=== PATIENT | female | born 1955 | race Caucasian/White ===

== ENCOUNTER → 2016-06-24 | Outpatient (CLI) | payer BC ==
[~2016-06-24] MED LIST: ACET-1256 PO; ASPEC325 PO; ASPI-435 PO; ATOR10TA88 PO; CALC500C3 PO; CELE100C PO; CHOL1CAP57 PO; COENCAP9 PO; LPR25 PO; LPR50X PO; MONISTAT; OMEP40CA41 PO; OXYC-609 PO; Omeprazole PO; ULT/50 PO; ULT50 PO; VENL75TA4 PO; XNX25 PO; [UNRECOGNIZED DRUG - CODE] PO
--- NOTE | 2016-06-24 11:03 | DIAGNOSTIC IMAGING REPORT ---
CT SCAN OF THE PELVIS WITHOUT IV CONTRAST CLINICAL HISTORY: Unspecified hip pain. COMPARISON STUDY: Pelvic CT dated 11/04/2015. TECHNIQUE: CT scan of the bony pelvis is performed from the pelvic inlet to the proximal femora. Images reviewed in the axial, sagittal, and coronal planes. IV contrast was not administered for this examination. The examination is severely degraded by metallic streak artifact from bilateral hip arthroplasties. Note that interpretation is suboptimal without plain film correlate. CT DOSE: 692.07 mGy.cm FINDINGS: The skeletal structures are osteopenic. Assessment is severely degraded by streak artifact from bilateral hip arthroplasties. No acute fracture is clearly seen in the hips or bony pelvis. No lytic or blastic lesions are identified. 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 This has progressed from 11/04/2015 and there is fragmentation of the medial wall of the acetabulum with superior subluxation of the acetabular cup. This appears corticated/chronic and is likely subacute to chronic. There is associated expansion of the right iliopsoas musculature. There is fluid containing hyperdense debris, this could represent a seroma or possibly a liquefied hematoma. Hyperdense debris could reflect particle disease. Clinical correlation will be essential. The left hip arthroplasty is in near-anatomic alignment. The musculature of the hips and pelvis is otherwise normal in appearance. Lumbosacral spondylosis is partially imaged. There is a small fat-containing umbilical hernia. The left rectus musculature is markedly atrophic and there is laxity of the left ventral abdominal wall with protuberant bowel loops. The visualized bowel loops are normal in caliber. A normal appendix is seen. The bladder is grossly unremarkable but not well assessed due to streak artifact. The uterus is surgically absent. No pelvic sidewall or inguinal lymphadenopathy is seen. IMPRESSION: 1. Significantly degraded examination by streak artifact from bilateral hip arthroplasties. 2. Resorptive change is noted in the right acetabulum and there is protrusio acetabuli with fragmentation of the medial wall of the acetabulum. This is likely subacute to chronic and has progressed from 11/04/2015. 3. There is expansion of the right iliopsoas musculature which contains fluid and hyperdense/metallic debris. This could represent intramuscular hematoma and/or seroma. The debris suggests particle disease. Clinical correlation will be required. 4. No additional bony abnormality is identified. The left hip arthroplasty is normal in appearance. Dictated: 06/24/2016 10:40 AM Transcribed: 06/24/2016 11:03 AM [facility] Electronically signed by: Matt Blue M.D. 06/24/2016 11:39 AM Dictated Date/Time: 06/24/2016 10:40 AM
== END | disposition home or self-care (01) ==
LOC: C.CTS 09:28
PROVIDERS: ATTEND Orthopaedic Surgery
DX: M25.559 Pain in unspecified hip (principal); M24.7 Protrusio acetabuli; Z96.643 Presence of artificial hip joint, bilateral; R93.7 Abnormal findings on diagnostic imaging of other parts of musculoskeletal system

== ENCOUNTER 2016-07-23 10:21 | Emergency (ER) | payer BC ==
[~2016-07-23] VITALS: Ht 149.9 cm; Wt 62.0 kg
[2016-07-23] VITALS (10 sets, daily range): BP systolic 112–157; BP diastolic 69–98; PULSE 88–102; TEMP 36.7; O2SAT 95–100; Ht 149.9 cm; Wt 62.0 kg
[~2016-07-23 10:21] MED LIST changes: -ACET-1256 PO; -ASPEC325 PO; -ATOR10TA88 PO; -CELE100C PO; -CHOL1CAP57 PO; -LPR25 PO; -OMEP40CA41 PO; -OXYC-609 PO; -ULT/50 PO; -ULT50 PO; -VENL75TA4 PO; -XNX25 PO
--- NOTE | 2016-07-23 11:11 | EMERGENCY ROOM VISIT NOTE ---
History First contact with patient: 10:48 Chief Complaint: HIP PAIN Stated Complaint: RT HIP,NO CONTROL IN MOVEMENT History of Present Illness The patient is a 61 year old female who presents to the Emergency Room via private vehicle accompanied by male and female with complaints of "right hip, no control movement". The patient states that she fell June 03, and fractured her pelvis. She thought that it was only bruised, because she fell on her her left side but had right hip pain. She states that she was then evaluated by Dr. Diaz, who found that she had a broken pelvis, and therefore sent her to [facility] for the surgery. The surgery was performed on July 13. It was done by Dr. Martel. She has been home since July 15, it has been in pain but has been healing well. She states that Monday of this week she went to sit down and when she straightened her right leg she felt a snap in the right hip. She notes that this was the worst pain she has ever experienced. She called [facility] on Monday, and again this morning. She notes that at 3 AM this morning she stepped on her left foot followed by her right foot and her right leg seemed to be uncontrolled almost as if she had broken the hip again. She notes pain currently in the right hip is a 2-3/10. She feels that the right hip region is numb. She denies any lower extremity weakness, bowel or bladder incontinence or numbness and tingling in the genital region. She denies any chest pain, shortness of breath, fevers, chills. She spoke with Dr. Zamarripa, the orthopedic resident this morning from [facility] who recommended she go to the local ER for an x-ray of the hip. Review of Systems A complete 10-point Review of Systems was discussed with the patient, with pertinent positives and negatives listed in the History of Present Illness. All remaining Review of Systems questions can be considered negative unless otherwise specified. Past Medical/Surgical History Medical Problems: (1) Breast cancer (2) Cancer of central portion of left breast Family History Heart disease, cancer Social History Smoking Status: Never Smoker Social History: Patient lives at home alone. Current/Historical Medications Scheduled Acetaminophen (Tylenol), 1,000 MG PO TID Alprazolam (Alprazolam), 0.125 MG PO HS Anastrozole (Bulk) (Anastrozole), 1 MG PO DAILY Aspirin (Aspirin), 325 MG PO BID Atorvastatin (Lipitor), 10 MG PO HS Celecoxib (Celebrex), 100 MG PO QAM Cholecalciferol (Vitamin D3), 1,000 INTERUNIT PO BID Coenzyme [id number] Oil-Vitamin (Co-Q 10 [place]-3 Fish Oil), 100 MG PO DAILY Metoprolol Tartrate (Lopressor), 12.5 MG PO BID Omeprazole (Prilosec), 40 MG PO QAM Tramadol Hcl (Ultram), 50 MG PO Q8H Venlafaxine Hcl (Effexor), 225 MG PO DAILY Scheduled PRN Oxycodone HCl (Oxycodone HCl), 5-10 MG PO Q4 PRN for SEVERE PAIN Tramadol HCl (Tramadol HCl), 50 MG PO Q8 PRN for Pain Allergies Coded Allergies: Adhesives (Verified Adverse Reaction, Mild, HIVES, 07/23/16) Physical Exam Vital Signs Date Time Temp Pulse Resp B/P Pulse Ox O2 Delivery O2 Flow Rate FiO2 07/23/16 18:24 95 18 142/74 99 Room Air 07/23/16 16:52 92 18 157/78 100 07/23/16 16:46 92 18 151/98 99 Room Air 07/23/16 16:41 92 16 143/77 100 Room Air 07/23/16 16:36 88 20 134/72 100 Nasal Cannula 3.0 07/23/16 16:32 91 20 116/84 100 Nasal Cannula 4.0 07/23/16 16:30 92 15 100 Nasal Cannula 3.0 07/23/16 16:25 98 16 112/73 95 Room Air 07/23/16 16:21 96 16 151/69 96 Room Air 07/23/16 16:15 36.7 102 18 137/92 99 07/23/16 15:20 97 20 129/63 99 Room Air 07/23/16 13:50 89 18 123/92 98 Room Air 07/23/16 12:46 97 16 127/73 99 Room Air 07/23/16 12:08 85 18 127/66 96 Room Air 07/23/16 10:23 36.9 98 18 122/62 100 Room Air Physical Exam VITAL SIGNS - Vital signs and nursing notes were reviewed. Afebrile, normotensive, non-tachycardic and is saturating well on room air 100%. GENERAL -61-year-old female appearing her stated age who is in no acute distress. Communicates well with provider and answers questions appropriately. SKIN - Without rashes. There is a well-healed incision overlying the right lateral hip with evidence of staple placement. No evidence of infection at this time. No drainage. No wound dehiscence. HEAD - NC/AT. EYES - Sclera anicteric. Palpebral conjunctiva pink and moist with no injection noted. NECK - Neck with FROM. No meningismus. LUNGS - Chest wall symmetric without accessory muscle use, intercostals retractions, or central cyanosis. Normal vesicular breath sounds CTA B/L. No wheezes, rales, or rhonchi appreciated. CARDIAC - RRR with S1/S2. No murmur, rubs, or gallops appreciated. EXTREMITIES - No clubbing or peripheral cyanosis. No pretibial edema present. Patient is neurovascularly intact in the right lower extremity. There is tenderness to palpation overlying the right lateral hip. Upon inspection, the right lower extremity is externally rotated and shortened compared to the left. There is a palpable deformity of the right hip. I suspect hip fracture/ dislocation. Left lower extremity is unremarkable. There is minimal range of motion of the right lower extremity. Medical Decision & Procedures ER Provider Diagnostic Interpretation: RIGHT PELVIS/UNILATERAL HIP 2-3VIEWS CLINICAL HISTORY: Right hip pain status post trauma COMPARISON STUDY: CT scan dated 06/24/2016 FINDINGS: There are postsurgical changes of a total left hip arthroplasty. There are postsurgical changes of a total right hip arthroplasty with acetabular reconstruction. The right femoral head prosthesis is anteriorly, superiorly and laterally dislocated. There is ill-definition of the right medial acetabular wall, and there are radiopacities present, possibly representing antibiotic pledgets. IMPRESSION: Dislocated right hip arthroplasty Electronically signed by: Chintan Riggins M.D. 07/23/2016 12:07 PM Dictated Date/Time: 07/23/2016 12:04 PM CHEST ONE VIEW PORTABLE CLINICAL HISTORY: Recent surgery TRAUMA COMPARISON STUDY: 04/04/2014 FINDINGS: The heart is mildly enlarged. There is no failure. Surgical clips project over the left breast. There are equivocal subtle right upper lung zone airspace opacities. There is minor left basilar atelectasis.[ IMPRESSION: 1. Mild cardiomegaly 2. No evidence of failure 3. Equivocal subtle right apical airspace opacities Electronically signed by: Chintan Riggins M.D. 07/23/2016 12:08 PM Dictated Date/Time: 07/23/2016 12:07 PM AP PELVIS AND RIGHT HIP 2 VIEWS CLINICAL HISTORY: Right hip dislocation status post reduction COMPARISON STUDY: Earlier in the day FINDINGS: There are postsurgical changes of bilateral total hip arthroplasties. There is evidence for right acetabular reconstruction. Radiopacities projected over an ill-defined right medial acetabular wall may represent an embolic pledgets. There has been interval reduction of the previous described dislocation. IMPRESSION: Interval reduction of the previously identified right prosthetic hip dislocation Electronically signed by: Chintan Riggins M.D. 07/23/2016 4:48 PM Dictated Date/Time: 07/23/2016 4:47 PM Laboratory Results 07/23/16 11:17 Red Blood Count 3.40, Mean Corpuscular Volume 88.8, Mean Corpuscular Hemoglobin 27.9, Mean Corpuscular Hemoglobin Concent 31.5, Mean Platelet Volume 9.8, Neutrophils (%) (Auto) 67.5, Lymphocytes (%) (Auto) 16.4, Monocytes (%) (Auto) 9.1, Eosinophils (%) (Auto) 4.7, Basophils (%) (Auto) 0.0, Neutrophils # (Auto) 5.35, Lymphocytes # (Auto) 1.30, Monocytes # (Auto) 0.72, Eosinophils # (Auto) 0.37, Basophils # (Auto) 0.00 07/23/16 11:17 Test 07/23/16 11:17 White Blood Count 7.92 K/uL (4.8-10.8) Red Blood Count 3.40 M/uL (4.2-5.4) Hemoglobin 9.5 g/dL (12.0-16.0) Hematocrit 30.2 % (37-47) Mean Corpuscular Volume 88.8 fL (80-100) Mean Corpuscular Hemoglobin 27.9 pg (25-34) Mean Corpuscular Hemoglobin Concent 31.5 g/dl (32-36) Platelet Count 341 K/uL (130-400) Mean Platelet Volume 9.8 fL (7.4-10.4) Neutrophils (%) (Auto) 67.5 % Lymphocytes (%) (Auto) 16.4 % Monocytes (%) (Auto) 9.1 % Eosinophils (%) (Auto) 4.7 % Basophils (%) (Auto) 0.0 % Neutrophils # (Auto) 5.35 K/uL (1.4-6.5) Lymphocytes # (Auto) 1.30 K/uL (1.2-3.4) Monocytes # (Auto) 0.72 K/uL (0.11-0.59) Eosinophils # (Auto) 0.37 K/uL (0-0.5) Basophils # (Auto) 0.00 K/uL (0-0.2) RDW Standard Deviation 52.4 fL (36.4-46.3) RDW Coefficient of Variation 16.4 % (11.5-14.5) Immature Granulocyte % (Auto) 2.3 % Immature Granulocyte # (Auto) 0.18 K/uL (0.00-0.02) Prothrombin Time 9.8 SECONDS (9.0-12.0) Prothromb Time International Ratio 0.9 (0.9-1.1) Activated Partial Thromboplast Time 25.6 SECONDS (21.0-31.0) Partial Thromboplastin Ratio 1.0 Anion Gap 6.0 mmol/L (3-11) Est Creatinine Clear Calc Drug Dose 51.2 ml/min Estimated GFR () 78.9 Estimated GFR (Non- 68.0 BUN/Creatinine Ratio 24.5 (10-20) Calcium Level 8.9 mg/dl (8.5-10.1) Medical Decision Patient was seen and evaluated as above. After obtaining a thorough history and physical examination IV access was initiated and the above workup was performed. There is concern for potential hip fracture/dislocation. Patient was made nothing by mouth. Her last food was around 9:30-10 AM this morning. She consumed some sort of cereal with milk. The patient has a history concerning for potential fracture or dislocation. Radiograph results as above. This does reveal a significant dislocation. Chest x-ray reveals equivocal opacities but clinically she appears well, is saturating 100% on room air and I do not suspect pneumonia. The patient did not want anything for pain. She is comfortable. There is no leukocytosis, hemoglobin is 9.5. Patient indicated that she did receive 2 pints of blood at [facility]. I suspect that this is likely secondary to the surgery. I do not suspect extravasation in the right hip. Coagulation studies within normal limits. Sodium elevated at 146, chloride 109, BUN 22. I suspect she is dehydrated. I did discuss the case with my attending, and subsequently the on-call orthopedic surgeon. It was decided to attempt to reduce the patient here in the emergency department under conscious sedation once it was safe, approximate 6 hours after her last meal. Please refer to Dr. Littlejohn operative report. Please refer to the procedure note by Dr. Stoll. Patient tolerated this well with successful reduction. The patient was then provided with a short-term continuing prescription of the tramadol of which she was previously prescribed, and is to call her orthopedic surgeon first thing Monday to request sooner follow-up. She was fitted here with a brace with good fit. She was educated upon management. She was educated upon worrisome symptoms which to return. She had questions prior to discharge and was discharged home in good condition. EKG was unremarkable. In the evaluation and treatment of this patient, the following differential diagnoses were considered: Hip Fracture, Hip Dislocation, Greater Trochanteric Bursitis, Musculoskeletal Pain, Lumbar Radiculopathy. [facility] Drug Monitoring Program Search Results: patient reviewed within database, no issues identified Impression Primary Impression: Hip dislocation, right Additional Impression: Anemia Departure Information Dispostion Home / Self-Care Condition GOOD Prescriptions Tramadol Hcl (ULTRAM) 50 Mg Tab 50 MG PO Q8H, #9 TAB PRN PAIN Prov: Cayetano Wilson PA-C 07/23/16 Referrals RV. Beltran MD (PCP) Patient Instructions My [facility] Additional Instructions You were seen and evaluated in the emergency department for your right hip dislocation. You were found to be anemic here, with questionable opacities in the upper lobe on chest x-ray. As we discussed I do not think this is pneumonia at this time however it is recommended to have a repeat x-ray with her family doctor. You have had the right hip reduced back into place. Please call Dr. Martel's office first thing Monday to inform them that you were seen in the ER for hip dislocation. They may want to see her earlier. You've been prescribed tramadol, you may not drive or operative machinery with this. This is one tablet every 8 hours. Please use your walker and keep the brace in place until seen by Dr. Martel. You may use light toe-touch to the right leg but no full weightbearing. Please return to the emergency department with any new/concerning symptoms. Thank you for your time. Problem Qualifiers
[2016-07-23] MEDS ORDERED: ASPEC325 PO (11:28)
[2016-07-23] MEDS ORDERED: OXYC-609 PO (11:30)
[2016-07-23] MEDS ORDERED: ULT50 PO (11:30)
[2016-07-23 11:35] LABS: COMPLETE YES; EOS % 4.7 %; HEMATOCRIT 30.2 % (37-47); IG% 2.3 %; LYMPH % 16.4 %; MEAN CELL VOLUME 88.8 fL (80-100); MEAN CORPUSCULAR HEMOGLOBIN 27.9 pg (25-34); MEAN CORPUSCULAR HGB CONC 31.5 g/dl (32-36); MEAN PLATELET VOLUME 9.8 fL (7.4-10.4); MONO % 9.1 %; NEUT % 67.5 %; PLATELET COUNT 341 K/uL (130-400); WHITE BLOOD COUNT 7.92 K/uL (4.8-10.8)
[2016-07-23 11:50] LABS: INR 0.9 (0.9-1.1); PROTHROMBIN TIME (PATIENT) 9.8 SECONDS (9.0-12.0)
[2016-07-23 11:56] LABS: BUN/CREATININE RATIO 24.5 (10-20); CALCIUM 8.9 mg/dl (8.5-10.1); CREATININE 0.9 mg/dl (0.60-1.20); POTASSIUM 4.4 mmol/L (3.5-5.1)
--- NOTE | 2016-07-23 12:09 | DIAGNOSTIC IMAGING REPORT ---
RIGHT PELVIS/UNILATERAL HIP 2-3VIEWS CLINICAL HISTORY: Right hip pain status post trauma COMPARISON STUDY: CT scan dated 06/24/2016 FINDINGS: There are postsurgical changes of a total left hip arthroplasty. There are postsurgical changes of a total right hip arthroplasty with acetabular reconstruction. The right femoral head prosthesis is anteriorly, superiorly and laterally dislocated. There is ill-definition of the right medial acetabular wall, and there are radiopacities present, possibly representing antibiotic pledgets. IMPRESSION: Dislocated right hip arthroplasty Electronically signed by: Chintan Riggins M.D. 07/23/2016 12:07 PM Dictated Date/Time: 07/23/2016 12:04 PM
--- NOTE | 2016-07-23 12:10 | DIAGNOSTIC IMAGING REPORT ---
CHEST ONE VIEW PORTABLE CLINICAL HISTORY: Recent surgery TRAUMA COMPARISON STUDY: 04/04/2014 FINDINGS: The heart is mildly enlarged. There is no failure. Surgical clips project over the left breast. There are equivocal subtle right upper lung zone airspace opacities. There is minor left basilar atelectasis.[ IMPRESSION: 1. Mild cardiomegaly 2. No evidence of failure 3. Equivocal subtle right apical airspace opacities Electronically signed by: Chintan Riggins M.D. 07/23/2016 12:08 PM Dictated Date/Time: 07/23/2016 12:07 PM
--- NOTE | 2016-07-23 12:59 | EMERGENCY ROOM VISIT NOTE ---
ED Visit Note First contact with patient: 10:48 I have personally evaluated and examined this patient. I agree with assessment and plan of Luna Wilson PA-C. 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 Last hip replacement on the right with revision occurred approximately July 13. 4 days ago while in the shower she strained her leg felt a severe snap and since that time has been unable to fully weight-bear on the right leg. Then at 1 AM this morning she attempted to get up and put whatever weight she has been able to on her leg and it was more weak than previous. She last had a light meal at 9 AM consisting of rice crispies with milk and coffee with cream. There is significant quadriceps spasm in the hip currently. There is no surgery was performed at [facility]. At this point I feel as if the patient will likely require general anesthesia to relocate the hip. She will meet nothing by mouth guidelines at 3 PM after 6 hours. At this point we will be contacting the [facility] group to see if they would relocate the hip operatively at [facility] or if they would prefer to transfer the patient to [place] where she had her surgery performed at. In discussion with Luna Wilson PA-C the [facility] orthopedics service once to attempt a reduction in the emergency department. I have turned the patient's care over to Dr. Stoll for the conscious sedation.
[2016-07-23] MEDS ORDERED: PROPOFOL IV EMULSION 10 MG/ML 100 ML VIAL IV STA (14:36)
--- NOTE | 2016-07-23 15:45 | Medical Consult ---
Consultation Note Date of Service Jul 23, 2016. Consultation Note CHIEF COMPLAINT: Right revision TIMMY dislocation. HISTORY OF PRESENT ILLNESS: Ai is a pleasant 51-year-old female, patient of Dr. Rm who recently underwent revision of her acetabular component of her right total hip arthroplasty on July 13, 2016. This past Monday when she went to sit down and strained her right leg, she felt a snap in the pelvis. This morning, while attempting to put weight on the right leg, her right leg seemed to be uncontrolled as if she had broken her hip again. Her pain is a 2- 3 /10. I was consult did for further evaluation, and closed reduction. She unfortunately had drank milk this a.m and the ER was able to perform conscious sedation at approximately 4 PM. Past medical history: High cholesterol Acid reflux Anxiety Breast cancer Depression past surgical history: Procedure Procedure Date Comments Hip 2014 - right hip resurfacing Mastectomy 2009 Leg 2009 - left-artery clamped Placement power port cath 2009 Breast 2008 - left-papilloma Cholecystectomy 2007 Hip replacement 1994 - right-1994, left hip-09/2006 Tubal ligation 1978 section 1976 Tonsillectomy 1967 MEDICATIONS: 1. Anastrozole (anastrozole 1 mg oral tablet) 1 mg (1 tab) by mouth once daily. 2. ALPRAZolam (ALPRAZolam 0.25 mg oral tablet) 0.125 mg (0.5 tab) by mouth at bedtime. . 3. Atorvastatin (atorvastatin 10 mg oral tablet) 10 mg (1 tab) by mouth at bedtime. 4. Cholecalciferol (Vitamin D3 1000 intl units oral capsule) 1,000 Int_Unit (1 cap) by mouth 2 times daily. 5. Ubiquinone (CoQ10) 100 mg by mouth once daily. 6. Metoprolol (metoprolol tartrate 25 mg oral tablet) 12.5 mg (0.5 tab) by mouth 2 times daily. 7. Venlafaxine (venlafaxine 75 mg oral capsule, extended release) 225 mg (3 cap ) by mouth once daily. 8. Omeprazole (omeprazole 40 mg oral delayed release capsule) 40 mg (1 cap) by mouth once daily. 9. Alendronate (alendronate 70 mg oral tablet) 70 mg (1 tab) by mouth Every 7 days. takes on Sundays. 10. Aspirin (aspirin 325 mg oral tablet) 325 mg (1 tab) by mouth 2 times daily. 11. Acetaminophen (Tylenol 500 mg oral tablet) 1,000 mg (2 tab) by mouth 3 times daily. take for 1 week after discharge from [facility]. 12. TraMADol (Ultram 50 mg oral tablet) 50 mg (1 tab) by mouth every 8 hours, as needed for Pain - Mild. 13. OxyCODONE (oxyCODONE 5 mg oral tablet) 1 or 2 tabs by mouth every 4 hours, as needed for Pain - Severe. ALLERGIES: Adhesive bandages. FAMILY HISTORY: Noncontributory. SOCIAL HISTORY: Denies smoking. Admits to alcohol once per month. REVIEW OF SYSTEMS: A 10-point review of systems is noted in the hospital ER medical record. PHYSICAL EXAM: Patient is in no acute distress breathing easily at 16-20 breaths per minute. They have an appropriate mood and affect. They weigh 62 kg and are 150 cm tall. Vitals: Pulse 97, blood pressure 129/63, pulse ox 99% on room air. Focusing on her right lower extremity, she is able to wiggle her toes and ankle up and down. Her calf is soft and nontender. Her sensation light touch is intact distally. She has 2+ DP pulse. Her incision is clean, dry, intact. Her leg is shortened and externally rotated. RADIOGRAPHS: AP pelvis AP and lateral right hip, show total hip prosthesis that is dislocated. The acetabular component has an extensive cage and multiple screws that appears intact. No fracture. IMPRESSION: Anterior dislocation revision right TIMMY. PLAN: After a lengthy discussion with the patient today regarding my above clinical findings, as well as reviewing her radiographs, I recommended conscious sedation and attempted closed reduction with placement in a hip abduction brace, hip flexion blocked at 60 degrees. To continue with total hip precautions. Toe-touch weightbearing. She may utilize ice and cane continue with pain medicine as needed. She should follow-up with Dr. Martel as previously scheduled for staple removal and further care. The patient understood all my instructions and explanation; all their questions were satisfactorily addressed. PROCEDURE: After obtaining consent and performing a time-out identifying the right hip as the appropriate hip for closed reduction. The emergency room staff once adequate conscious sedation was performed, a closed reduction in the standard fashion was performed, on the second attempt the hip was felt to reduce. The hip no longer pistoned. Her leg lengths were normal. Postreduction x-rays were obtained showing the hip to be reduced. She tolerated the procedure well. She will follow all of the above instructions.
--- NOTE | 2016-07-23 16:50 | EMERGENCY ROOM VISIT NOTE ---
ED Visit Note First contact with patient: 13:18 Procedural Sedation Indication right hip dislocation Total time: 26 minutes. Written consent was obtained after the risks and benefits were explained to the patient, including, but not limited to aspiration, allergic reaction, breathing difficulties, cardiac complications, vomiting, pain, event recall, bleeding, and /or infection. Pre-sedation examination and paperwork completed. The patient was on 100% oxygen via NRB prior to the procedure. Continous end tidal CO2 monitoring, pulse oximetry, and cardiac monitoring were utilized. Suction, airway equipment, medications, respiratory equipment, and appropriate personnel were prepared prior to the initiation of the procedure. A time out was taken. Sedation was achieved utilizing a total of 100 mg of propofol. After I observed the patient had reached the appropriate level of sedation the main procedure was performed without complication. Sedation was discontinued and the monitoring continued. The patient recovered quickly from the effects of the medication without complication or adverse event. The hip was reduced using traction by Dr. Littlejohn. X-rays confirmed proper reduction. IMPRESSION: Right hip dislocation Prior pelvic fracture.
--- NOTE | 2016-07-23 16:50 | DIAGNOSTIC IMAGING REPORT ---
AP PELVIS AND RIGHT HIP 2 VIEWS CLINICAL HISTORY: Right hip dislocation status post reduction COMPARISON STUDY: Earlier in the day FINDINGS: There are postsurgical changes of bilateral total hip arthroplasties. There is evidence for right acetabular reconstruction. Radiopacities projected over an ill-defined right medial acetabular wall may represent an embolic pledgets. There has been interval reduction of the previous described dislocation. IMPRESSION: Interval reduction of the previously identified right prosthetic hip dislocation Electronically signed by: Chintan Riggins M.D. 07/23/2016 4:48 PM Dictated Date/Time: 07/23/2016 4:47 PM
--- NOTE | 2016-07-23 16:51 | [facility] Operative Report ---
Operative Report Operative Date Jul 23, 2016. Pre-Operative Diagnosis Revision Right TIMMY Dislocation Post-Operative Diagnosis Same Procedure(s) Performed Closed Reduction R TIMMY. Surgeon Dr. Littlejohn Gas Main Fitter Helper Surgeon(s) Clive Lara PA-C Estimated Blood Loss 0 Findings Dislocated Revised Right TIMMY. Fluids 300 Drains n/a Anesthesia Conscisous Sedation Complication(s) None Disposition Remained in ER B1 Indications The patient is a 61 year old female who dislocated her recent revision right TIMMY. After orthopedic consult discussing the patients treatment options of attempted closed reduction versus surgical intervention, she agreed for conscious sedation and attempted closed reduction. The patient understands the risks of surgery, which include but are not limited to: Failure to reduce the hip, loss of reduction, continued pain, fracture. The patient understands all of these instructions and explanations, all of their questions have been satisfactorily addressed. The patient has elected to proceed with surgery and the informed consent was signed. Description of Procedure The patient was taken to be one in the emergency room in preparation for conscious sedation. A multidisciplinary time-out was performed identifying the right lower limb as the correct limb for closed reduction. Once adequate conscious sedation was administered, and attempted closed reduction was performed with traction slight flexion with internal/external rotation. I was initially unable to reduce the hip. After administering additional propofol, a second attempt was performed and again with traction and counter pressure on her pelvis, slight flexion and abduction of the inner thigh , the hip reduced. There was no pistoning. The leg was able to be flexed and internally and externally rotated. Her leg lengths were equal. She tolerated the procedure well. After obtaining postreduction x-rays indicating the hip to be reduced and no fractures; she was placed in an abduction brace was blocked at 60 of flexion. She will remain toe-touch weightbearing. She will follow- up with Dr. Martel as previously scheduled this coming week. I attest to the content of the Intraoperative Record and any orders documented therein. Any exceptions are noted below.
[2016-07-23] MEDS ORDERED: ULT/50 PO (17:14)
[2017-02-24] MEDS ORDERED: VENL75TA4 PO (08:07)
[2017-02-24] MEDS ORDERED: CHOL1CAP57 PO (08:12)
[2017-02-24] MEDS ORDERED: XNX25 PO (09:34)
[2017-02-24] MEDS ORDERED: CELE100C PO (11:28)
[2017-02-24] MEDS ORDERED: OMEP40CA41 PO (11:28)
[2017-02-24] MEDS ORDERED: LPR25 PO (11:28)
[2017-02-24] MEDS ORDERED: ATOR10TA82 PO (11:28)
[2017-02-24] MEDS ORDERED: ACET-1256 PO (11:30)
== END 2016-07-23 18:25 | disposition home or self-care (01) ==
LOC: C.EDB 10:23
DX: T84.020A Dislocation of internal right hip prosthesis, initial encounter (principal); X58.XXXA Exposure to other specified factors, initial encounter; D64.9 Anemia, unspecified; E78.5 Hyperlipidemia, unspecified; K21.9 Gastro-esophageal reflux disease without esophagitis; F41.9 Anxiety disorder, unspecified; F32.9 Major depressive disorder, single episode, unspecified; Z96.643 Presence of artificial hip joint, bilateral; Z90.10 Acquired absence of unspecified breast and nipple; Z79.82 Long term (current) use of aspirin; Z85.3 Personal history of malignant neoplasm of breast

== ENCOUNTER 2016-07-24 13:18 | Emergency (ER) | payer BC ==
[~2016-07-24] VITALS: Ht 149.9 cm; Wt 63.0 kg
[~2016-07-24 13:18] MED LIST changes: +ASPEC325 PO; -ASPI-435 PO; -CALC500C3 PO; -LPR50X PO; -MONISTAT; +OXYC-609 PO; -Omeprazole PO; +ULT/50 PO; +ULT50 PO
[2016-07-24 13:31] VITALS: Ht 149.9 cm; Wt 63.0 kg
--- NOTE | 2016-07-24 14:20 | DIAGNOSTIC IMAGING REPORT ---
RIGHT PELVIS/UNILATERAL HIP 2-3VIEWS CLINICAL HISTORY: right hip pain/dislocation Right COMPARISON STUDY: CT scan dated 06/24/2016 FINDINGS: There are postsurgical changes of a total left hip arthroplasty. There are postsurgical changes of a total right hip arthroplasty with acetabular reconstruction. The right femoral head prosthesis is anteriorly, superiorly and laterally dislocated. There is ill-definition of the right medial acetabular wall with cement present. Skin ryan are again noted. No acute fractures. IMPRESSION: Dislocated right hip arthroplasty Electronically signed by: Scot Dewitt M.D. 07/24/2016 2:17 PM Dictated Date/Time: 07/24/2016 2:16 PM
--- NOTE | 2016-07-24 14:51 | EMERGENCY ROOM VISIT NOTE ---
History Report prepared by Qasim: Jeyson Morris Under the Supervision of: Dr. Rogelio Yo M.D. First contact with patient: 13:48 Chief Complaint: HIP PAIN Stated Complaint: RT HIP RE-DISLOCATED,REVISIT History of Present Illness The patient is a 61 year old female who presents to the Emergency Room with complaints of persistent right hip discomfort beginning earlier this morning. The patient had a right pelvic fracture on June 03, 2016, and had surgery with a hip replacement on July 13, 2016. Since then she has been at home and has been doing well. She notes she fell in the shower a few days ago, and thins then has had right hip pain and a shortened right leg. The patient was here yesterday, and under a sedation procedure, had her dislocated right hip reduced. Orthopedics notes this was a difficult reduction, and afterwards was kept in a pelvic brace, then discharged home. The patient notes that this morning she woke up with a shortened externally rotated right leg and hip pain with movement. She is unable to bear weight on her right hip. She denies taking and medications for her pain, and last ate around 1000 today. The patient denies other injuries or falls, chest pain, shortness of breath, urinary or bowel symptoms, or pain in her legs. She indicates that nothing relieves her pain, and that walking worsens her pain. Source of History: patient Onset: this morning Position: other (right hip) Quality: other (hip discomfort) Timing: other (persistent) Modifying Factors (Worsening): movement Associated Symptoms: No SOB, No chest pain, No urinary symptoms Note: Patient also denies bowel symptoms. Review of Systems See HPI for pertinent positives & negatives. A total of 10 systems reviewed and were otherwise negative. Past Medical & Surgical Medical Problems: (1) Breast cancer (2) Cancer of central portion of left breast Family History No pertinent family history stated. Social History Smoking Status: Never Smoker Current/Historical Medications Scheduled Acetaminophen (Tylenol), 1,000 MG PO TID Alprazolam (Alprazolam), 0.125 MG PO HS Anastrozole (Bulk) (Anastrozole), 1 MG PO DAILY Aspirin (Aspirin), 325 MG PO BID Atorvastatin (Lipitor), 10 MG PO HS Celecoxib (Celebrex), 100 MG PO QAM Cholecalciferol (Vitamin D3), 1,000 INTERUNIT PO BID Coenzyme U61-Enou Oil-Vitamin (Co-Q 10 Bone Gap-3 Fish Oil), 100 MG PO DAILY Metoprolol Tartrate (Lopressor), 12.5 MG PO BID Omeprazole (Prilosec), 40 MG PO QAM Tramadol Hcl (Ultram), 50 MG PO Q8H Venlafaxine Hcl (Effexor), 225 MG PO DAILY Scheduled PRN Oxycodone HCl (Oxycodone HCl), 5-10 MG PO Q4 PRN for SEVERE PAIN Tramadol HCl (Tramadol HCl), 50 MG PO Q8 PRN for Pain Allergies Coded Allergies: Adhesives (Verified Adverse Reaction, Mild, HIVES, 07/24/16) Physical Exam Vital Signs Date Time Temp Pulse Resp B/P Pulse Ox O2 Delivery O2 Flow Rate FiO2 07/24/16 17:05 36.9 96 18 131/78 98 07/24/16 17:04 96 18 131/78 98 Room Air 07/24/16 15:06 96 18 131/78 98 Room Air 07/24/16 13:31 36.9 116 18 131/68 98 Room Air Physical Exam GENERAL: Patient is well appearing and in minimal distress. HEENT: No acute trauma, normocephalic atraumatic, mucous membranes moist, no nasal congestion, no scleral icterus. NECK: No stridor, no adenopathy, no meningismus, trachea is midline. LUNGS: No dyspnea. Clear to auscultation and equal bilaterally. No wheeze, no rhonchi. HEART: Regular rate and rhythm. No murmurs, rubs, gallops appreciated. ABDOMEN: Soft, nontender, bowel sounds positive, no masses appreciated, no peritonitis. BACK: No midline tenderness, no CVA tenderness EXTREMITIES: Externally rotated shortened right leg with significant pain on ROM of right hip. Pulses intact. Color intact. Sensation intact. Full sensation of entire leg. NEUROLOGIC: Alert and oriented, no acute motor or sensory deficits, no focal weakness, cranial nerves grossly intact. SKIN: No rash, no jaundice, no diaphoresis. Medical Decision & Procedures ER Provider Diagnostic Interpretation: Radiology results and stated below per my review and radiologist interpretation: RIGHT PELVIS/UNILATERAL HIP 2-3VIEWS FINDINGS: There are postsurgical changes of a total left hip arthroplasty. There are postsurgical changes of a total right hip arthroplasty with acetabular reconstruction. The right femoral head prosthesis is anteriorly, superiorly and laterally dislocated. There is ill-definition of the right medial acetabular wall with cement present. Skin ryan are again noted. No acute fractures. IMPRESSION: Dislocated right hip arthroplasty Electronically signed by: Scot Dewitt M.D. 07/24/2016 2:17 PM Dictated Date/Time: 07/24/2016 2:16 PM ED Course 1345: The patient was evaluated in room A2. A complete history and physical exam was performed. 1350: Discussed the patient's case with Dr. Nguyen requested I discuss the case with orthopedics at [facility]. 1425: The patient denies the need for pain medications at this time. She is aware of the plan to contact [facility]. 1445: I spoke with Dr. Cormier of [facility], and the [facility]. The patient will be accepted at the [facility]. The patient will be transferred to [facility]. Medical Decision Pleasant 61 yr old female with fall in June leading to right pelvic fracture and eventual right hip arthroplasty at [facility] on Jul 13. Doing well until a few days ago when she fell and since unable to use right leg due to pain. Yesterday in ED and had right hip reduction after it was found dislocated. Went home with pelvic splint but on awakening this morning noted to have pain with movement and shortening right leg. Laid in bed, ate breakfast and several hours arrives for further evaluation. Hip is clearly dislocation but without any n/v compromise and no pain while laying here. She is stable, no distress and feels well. Discussed with Ortho who feel she requires transfer to higher level care. Ortho at [facility] accepts, but requested transfer to ED there where she was also accepted. Initial plan to go almost immediately but there were several recurrent delays for EMS. Throughout this patient in no distress and feeling well. Stable at transfer out. Consults Time Called: 1350 Consulting Physician: Dr. Nguyen, Orthopedics Returned Call: [phone] Discussed the patient's case with Dr. Nguyen requested I discuss the case with orthopedics at [facility]. Additional Consults: Time Called: 1430 Consulted Physician: Dr. Cormier of [facility], and [facility] Returned Call: [phone] Additional Comments: I spoke with Dr. Cormier of [facility], and the [facility]. The patient will be accepted at the [facility]. Impression Primary Impression: Dislocation of hip prosthesis Scribe Attestation The scribe's documentation has been prepared under my direction and personally reviewed by me in its entirety. I confirm that the note above accurately reflects all work, treatment, procedures, and medical decision making performed by me. Departure Information Dispostion Transfer Acute Care Facility Referrals RV. Beltran MD (PCP) Patient Instructions My [facility] Problem Qualifiers Primary Impression: Dislocation of hip prosthesis Encounter type: initial encounter Qualified Codes: T84.029A - Dislocation of unspecified internal joint prosthesis, initial encounter; Z96.649 - Presence of unspecified artificial hip joint
[2016-07-24 17:05] VITALS: BP 131/78; PULSE 96; TEMP 36.9; O2SAT 98
[2017-02-24] MEDS ORDERED: VENL75TA4 PO (08:07)
[2017-02-24] MEDS ORDERED: CHOL1CAP57 PO (08:12)
[2017-02-24] MEDS ORDERED: XNX25 PO (09:34)
[2017-02-24] MEDS ORDERED: ATOR10TA82 PO (11:28)
[2017-02-24] MEDS ORDERED: LPR25 PO (11:28)
[2017-02-24] MEDS ORDERED: OMEP40CA41 PO (11:28)
[2017-02-24] MEDS ORDERED: CELE100C PO (11:28)
[2017-02-24] MEDS ORDERED: ACET-1256 PO (11:30)
== END 2016-07-24 17:12 | disposition short-term general hospital (02) ==
LOC: C.EDB 13:19 → C.EDA 17:12
DX: T84.021A Dislocation of internal left hip prosthesis, initial encounter (principal); X58.XXXA Exposure to other specified factors, initial encounter; Y83.1 Surgical operation with implant of artificial internal device as the cause of abnormal reaction of the patient, or of later complication, without mention of misadventure at the time of the procedure; Z96.641 Presence of right artificial hip joint; Z98.890 Other specified postprocedural states; Z79.82 Long term (current) use of aspirin; Z79.899 Other long term (current) drug therapy

== ENCOUNTER → 2016-10-05 | Outpatient (CLI) | payer BC ==
[~2016-10-05] MED LIST changes: +ACET-1256 PO; +ATOR10TA88 PO; +CELE100C PO; +CHOL1CAP57 PO; +LPR25 PO; +OMEP40CA41 PO; +VENL75TA4 PO; +XNX25 PO
--- NOTE | 2016-10-05 15:52 | MAMMOGRAPHY REPORT ---
UNILATERAL RIGHT DIGITAL SCREENING MAMMOGRAM TOMOSYNTHESIS WITH CAD: 10/05/2016 CLINICAL HISTORY: Asymptomatic. Personal history of breast cancer. TECHNIQUE: Right breast tomosynthesis in addition to standard 2D mammography was performed. Current damion pearson was also evaluated with a Computer Aided Detection (CAD) system. COMPARISON: Comparison is made to exams dated: 02/04/2015 mammogram and 06/12/2015 breast MRI - [facility]. BREAST COMPOSITION: There are scattered areas of fibroglandular density in the right breast. FINDINGS: There are stable circumscribed low-density subcentimeter masses in the right breast. Sergey gn-appearing microcalcifications. No new suspicious mass, architectural distortion or cluster of collin picious microcalcifications is seen. IMPRESSION: ACR BI-RADS CATEGORY 1: NEGATIVE There is no mammographic evidence of malignancy. A 1 year screening mammogram is recommended. The pa tient will receive written notification of the results. Approximately 10% of breast cancers are not detected with mammography. A negative mammographic report should not delay biopsy if a clinically suggestive mass is present. Brandi Angulo M.D. ay/:10/05/2016 15:33:52 Director Of Global Talent: Aurea Bui RT(R)(M), [facility] letter sent: Normal 1/2 BI-RADS Code: ACR BI-RADS Category 1: Negative
== END | disposition home or self-care (01) ==
LOC: C.MAMM 14:10
PROVIDERS: ATTEND Internal Medicine
DX: Z12.31 Encounter for screening mammogram for malignant neoplasm of breast (principal)

== ENCOUNTER → 2016-10-13 | Outpatient (CLI) | payer BC ==
[2016-10-13 15:04] LABS: ALT/SGPT 17 U/L (12-78); AST/SGOT 16 U/L (15-37); BLOOD UREA NITROGEN 15 mg/dl (7-18); CALCIUM 8.6 mg/dl (8.5-10.1); CARBON DIOXIDE 25 mmol/L (21-32); CHLORIDE 111 mmol/L (98-107); CREATININE 0.84 mg/dl (0.60-1.20); GLUCOSE 108 mg/dl (70-99); POTASSIUM 4.2 mmol/L (3.5-5.1); SODIUM 142 mmol/L (136-145)
[2016-10-13 15:07] LABS: ALB/GLOB RATIO 0.6 (0.9-2); ALKALINE PHOSPHATASE 166 U/L (45-117); CHOLESTEROL 143 mg/dl (0-200); CHOLESTEROL/HDL RATIO 2.9; HDL CHOLESTEROL 49 mg/dl; LDL CHOLESTEROL CALCULATED 72 mg/dl; TRIGLYCERIDES 110 mg/dl (0-150); VERY LOW DENSITY LIPOPROT CALC 22 mg/dl
[2016-10-13 15:10] LABS: ESTIMATED AVERAGE GLUCOSE 128 mg/dl; HA1C FLAG Normal (Normal)
== END | disposition home or self-care (01) ==
LOC: C.LABBC 09:31
PROVIDERS: ATTEND Internal Medicine
DX: E78.5 Hyperlipidemia, unspecified (principal); E55.9 Vitamin D deficiency, unspecified; R73.9 Hyperglycemia, unspecified

== ENCOUNTER → 2016-12-27 | Outpatient (CLI) | payer BC | END | disposition home or self-care (01) | LOC: C.MAMM 08:16 | PROVIDERS: ATTEND Internal Medicine | DX: M85.80 Other specified disorders of bone density and structure, unspecified site (principal); Z85.3 Personal history of malignant neoplasm of breast; Z87.81 Personal history of (healed) traumatic fracture; M81.0 Age-related osteoporosis without current pathological fracture ==

== ENCOUNTER 2017-02-24 17:54 | Emergency (ER) | payer BC ==
[~2017-02-24] VITALS: Ht 149.9 cm; Wt 61.0 kg
[~2017-02-24 17:54] MED LIST changes: +ATOR10TA82 PO; -ATOR10TA88 PO; -ULT/50 PO
[2017-02-24 18:01] VITALS: TEMP 36.7; Ht 149.9 cm; Wt 61.0 kg
--- NOTE | 2017-02-24 18:41 | EMERGENCY ROOM VISIT NOTE ---
History Report prepared by Qasim: Shamir Davidson Under the Supervision of: Dr. Jeyson Chavez M.D. First contact with patient: 18:30 Chief Complaint: NEURO SYMPTOMS Stated Complaint: LEFT SIDE NUMBNESS Nursing Triage Summary: patient denies any symptoms currently. symptoms happened on monday and last 5 mins. weakness to left side History of Present Illness The patient is a 61 year old female who presents to the Emergency Room with complaints of an episode of left-sided weakness that occurred 3 mornings ago. She says that she woke up that morning, and was carrying her dentures in her left hand, and suddenly she was unable to move her left arm and it felt "so heavy". She notes that the left arm and hand felt very weak. The patient adds that she then tried to walk to her bedroom, and her left leg was weak as well and was not moving as she wanted it to. She states that the episode lasted less than 5 minutes, and she has been fine without symptoms since then. The patient notes that she did not see a facial droop, and did not feel any numbness. She states that she has never had this before, and currently feels fine. She talked to an on-call doctor today, and was recommended to come here for evaluation. The patient denies any trauma or hits to her head. She also denies any trouble speaking, trouble swallowing, headaches, neck pain, loss of consciousness, fevers, recent illnesses, chest pain, shortness of breath, melena, or hematochezia. She is not on any blood thinners. The patient notes a history of a rapid heartbeat, but nothing has changed with that. She notes no personal history of strokes, but her father had one. Source of History: patient Onset: 3 mornings ago Position: other (left side) Symptom Intensity: lasted less than 5 mins Quality: other (weakness) Timing: other (episode) Associated Symptoms: No LOC, No headache, No neck pain, No chest pain, No SOB, No melena, No hematochezia, No numbness Note: Associated symptoms: Denies facial droop, trouble swallowing or speaking, recent illnesses. Review of Systems See HPI for pertinent positives & negatives. A total of 10 systems reviewed and were otherwise negative. Past Medical & Surgical Medical Problems: (1) Breast cancer (2) Cancer of central portion of left breast Old medical records were reviewed. Nurse's notes were reviewed and I agree with. Family History FH: heart disease FHx: cancer Hypertension Stroke Social History Smoking Status: Former Smoker Alcohol Use: occasionally Housing Status: lives alone Occupation Status: employed Current/Historical Medications Scheduled Anastrozole (Anastrozole), 1 MG PO DAILY Aspirin (Aspirin Ec), 81 MG PO DAILY Atorvastatin (Lipitor), 10 MG PO HS Celecoxib (Celebrex), 100 MG PO QAM Cholecalciferol (Vitamin D3), 1,000 INTERUNIT PO BID Coenzyme Q10 (Ubidecarenone) (Coq-10), 100 MG PO DAILY Metoprolol Tartrate (Lopressor), 12.5 MG PO BID Omeprazole (Prilosec), 40 MG PO QAM Venlafaxine Hcl (Effexor), 225 MG PO DAILY Scheduled PRN Acetaminophen (Tylenol), 1,000 MG PO TID PRN for Headache or Pain Alprazolam (Alprazolam), 0.125 MG PO HS PRN for Anxiety Allergies Coded Allergies: Adhesives (Verified Adverse Reaction, Mild, HIVES, 07/24/16) Physical Exam Vital Signs Date Time Temp Pulse Resp B/P (MAP) Pulse Ox O2 Delivery O2 Flow Rate FiO2 02/24/17 20:15 94 18 120/73 100 Room Air 02/24/17 18:01 36.7 98 18 137/73 98 Room Air Physical Exam General: Non-ill appearing middle-aged female in no acute distress. HEENT: Normal cephalic atraumatic. Pupils are equal round and reactive to light. Extraocular movements are intact. Oropharynx is pink with moist mucous membranes. No swelling of the mouth lips or tongue. Neck: Supple with a midline trachea. No meningeal signs or stiffness, no JVD or bruits. No Stridor. Chest: Clear to auscultation bilaterally. No wheezes or rhonchi. No increased work of breathing. Heart: regular rate and rhythm. Abdomen: Soft nontender, nondistended without rebound guarding or rigidity. Extremities: No cyanosis clubbing or edema. No calf tenderness or assymetry Spine/Back. Non tender to palpation. No CVA tenderness Skin: Good turgor without rashes. Neurologic exam: Cranial nerves two through 12 are intact. Motor and sensation are intact and symmetrical throughout. No pronator drift. Finger to nose intact. Medical Decision & Procedures ER Provider Diagnostic Interpretation: CT results as stated below per my review and radiologist interpretation: HEAD CT NONCONTRAST CT DOSE: 537.48 mGy.cm HISTORY: episode of left sided weakness TECHNIQUE: Multiaxial CT images of the head were performed without the use of intravenous contrast. Automated exposure control was utilized for this study. A dose lowering technique was utilized adhering to the principles of ALARA. Comparison: None. Findings: The paranasal sinuses and mastoid air cells are clear. The calvarium and skull base are intact. There is no mass, hematoma, midline shift, acute infarct. White matter hypodensity is nonspecific but suggestive of microvascular ischemic change. The ventricles and sulci demonstrate mild age-related involutional changes. 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 Impression: No acute intracranial abnormality. Atrophy and microvascular ischemic changes. Electronically signed by: Scot Dewitt M.D. 02/24/2017 7:37 PM Dictated Date/Time: 02/24/2017 7:31 PM Laboratory Results 02/24/17 19:05 Red Blood Count 3.97, Mean Corpuscular Volume 76.1, Mean Corpuscular Hemoglobin 22.9, Mean Corpuscular Hemoglobin Concent 30.1, Mean Platelet Volume 10.0, Neutrophils (%) (Auto) 64.3, Lymphocytes (%) (Auto) 21.3, Monocytes (%) (Auto) 10.1, Eosinophils (%) (Auto) 3.6, Basophils (%) (Auto) 0.0, Neutrophils # (Auto ) 4.64, Lymphocytes # (Auto) 1.54, Monocytes # (Auto) 0.73, Eosinophils # (Auto ) 0.26, Basophils # (Auto) 0.00 02/24/17 19:05 Test 02/24/17 19:05 02/24/17 19:17 White Blood Count 7.22 K/uL (4.8-10.8) Red Blood Count 3.97 M/uL (4.2-5.4) Hemoglobin 9.1 g/dL (12.0-16.0) Hematocrit 30.2 % (37-47) Mean Corpuscular Volume 76.1 fL (80-100) Mean Corpuscular Hemoglobin 22.9 pg (25-34) Mean Corpuscular Hemoglobin Concent 30.1 g/dl (32-36) Platelet Count 338 K/uL (130-400) Mean Platelet Volume 10.0 fL (7.4-10.4) Neutrophils (%) (Auto) 64.3 % Lymphocytes (%) (Auto) 21.3 % Monocytes (%) (Auto) 10.1 % Eosinophils (%) (Auto) 3.6 % Basophils (%) (Auto) 0.0 % Neutrophils # (Auto) 4.64 K/uL (1.4-6.5) Lymphocytes # (Auto) 1.54 K/uL (1.2-3.4) Monocytes # (Auto) 0.73 K/uL (0.11-0.59) Eosinophils # (Auto) 0.26 K/uL (0-0.5) Basophils # (Auto) 0.00 K/uL (0-0.2) RDW Standard Deviation 48.1 fL (36.4-46.3) RDW Coefficient of Variation 16.9 % (11.5-14.5) Immature Granulocyte % (Auto) 0.7 % Immature Granulocyte # (Auto) 0.05 K/uL (0.00-0.02) Prothrombin Time 10.3 SECONDS (9.0-12.0) Prothromb Time International Ratio 1.0 (0.9-1.1) Activated Partial Thromboplast Time 28.5 SECONDS (21.0-31.0) Partial Thromboplastin Ratio 1.1 Anion Gap 8.0 mmol/L (3-11) Est Creatinine Clear Calc Drug Dose 49.2 ml/min Estimated GFR () 75.8 Estimated GFR (Non- 65.4 BUN/Creatinine Ratio 22.6 (10-20) Calcium Level 8.3 mg/dl (8.5-10.1) Total Bilirubin 0.2 mg/dl (0.2-1) Direct Bilirubin < 0.1 mg/dl (0-0.2) Aspartate Amino Transf (AST/SGOT) 12 U/L (15-37) Alanine Aminotransferase (ALT/SGPT) 14 U/L (12-78) Alkaline Phosphatase 145 U/L (45-117) Total Protein 7.7 gm/dl (6.4-8.2) Albumin 2.8 gm/dl (3.4-5.0) Lipase 88 U/L (73-393) Bedside Troponin I < 0.030 ng/ml (0-0.045) Laboratory studies as stated above per my review. Medications Administered Medications (Trade) Dose Ordered Sig/Louise Route Start Time Stop Time Status Last Admin Dose Admin Aspirin (Aspirin Chew) 324 mg NOW STAT PO 02/24/17 20:33 02/24/17 20:34 DC 02/24/17 20:46 324 MG ECG Indication: weakness Rate (beats per minute): 87 Rhythm: normal sinus Findings: no acute ischemic change, no ectopy, other (normal intervals) Change: no significant change (from July 23 2016) ED Course 183: Past medical records reviewed. The patient was evaluated in room C12B, and a complete history and physical examination were performed. 1909: I reevaluated the patient and she is resting comfortably. 2019: Upon reevaluation, the patient is resting comfortably. I discussed the results and treatment plan with her. She verbalized agreement of the treatment plan. The patient was discharged home. 2032: Ordered Aspirin Chew 324 mg PO. Medical Decision Differentials include TIA, intracranial process, cardiac disease, electrolyte or metabolic abnormality. This patient comes in as described above. She was placed in room C 12. She had an episode 2 days ago that lasted about 5 minutes where she felt weak in her left arm and to lesser degree the left leg. She had no other symptoms and she's had no recurrence of symptoms . She called her doctor today and they referred her to the ER. She's been asymptomatic since then she does have a history of tachycardia but is not on any blood thinners. She's had no chest pain or shortness of breath. At present, she has a normal neurologic exam and no headache and no recent fever or any other symptoms. No trauma. IV access established and blood work was obtained. CAT scan of her head was obtained as well. CAT scan was unremarkable. She has nothing to suggest cardiac event. Her blood work is unremarkable. Based on her symptoms she probably did have a TIA 2 days ago but has been asymptomatic since then she does take a baby aspirin. I recommend she take an adult strength 325 mg. She strongly desires to go home at think this is reasonable close follow-up .I told her that she will likely need further workup as an outpatient which would likely include carotid imaging and MRI of her head and possibly more cardiac workup. She agrees with the plan and again desires to go home. She's can follow up with her doctor Monday for recheck or return to the weekend if: worsening of symptoms, numbness or weakness, any new problems or concerns. She was happy with plan and discharged to home. Medication Reconcilliation Current Medication List: was personally reviewed by me Blood Pressure Screening Patient's blood pressure: Normal blood pressure Impression Primary Impression: TIA (transient ischemic attack) Scribe Attestation The scribe's documentation has been prepared under my direction and personally reviewed by me in its entirety. I confirm that the note above accurately reflects all work, treatment, procedures, and medical decision making performed by me. Departure Information Dispostion Home / Self-Care Referrals RV. Beltran MD (PCP) Patient Instructions My [facility] Additional Instructions Rest. Drink plenty of fluids. Increase your aspirin to 325 mg once a day. Take with food Return if: Recurrence of symptoms, numbness or weakness, difficulty speaking or swallowing, any new problems or concerns Follow-up with your doctor on Monday for recheck. You will need further outpatient workup which will likely include imaging of your carotids, MRI and other workup Problem Qualifiers Primary Impression: TIA (transient ischemic attack) Transient cerebral ischemia type: unspecified Qualified Codes: G45.9 - Transient cerebral ischemic attack, unspecified
[2017-02-24 19:22] LABS: COMPLETE YES; EOS % 3.6 %; HEMATOCRIT 30.2 % (37-47); IG% 0.7 %; LYMPH % 21.3 %; LYMPH ABS # 1.54 K/uL (1.2-3.4); MEAN CELL VOLUME 76.1 fL (80-100); MEAN CORPUSCULAR HEMOGLOBIN 22.9 pg (25-34); MEAN CORPUSCULAR HGB CONC 30.1 g/dl (32-36); MONO % 10.1 %; NEUT % 64.3 %; PLATELET COUNT 338 K/uL (130-400); RED BLOOD COUNT 3.97 M/uL (4.2-5.4); WHITE BLOOD COUNT 7.22 K/uL (4.8-10.8)
[2017-02-24 19:35] LABS: PARTIAL THROMBOPLASTIN RATIO 1.1; PROTHROMBIN TIME (PATIENT) 10.3 SECONDS (9.0-12.0)
--- NOTE | 2017-02-24 19:39 | DIAGNOSTIC IMAGING REPORT ---
HEAD CT NONCONTRAST CT DOSE: 537.48 mGy.cm HISTORY: episode of left sided weakness TECHNIQUE: Multiaxial CT images of the head were performed without the use of intravenous contrast. Automated exposure control was utilized for this study. A dose lowering technique was utilized adhering to the principles of ALARA. Comparison: None. Findings: The paranasal sinuses and mastoid air cells are clear. The calvarium and skull base are intact. There is no mass, hematoma, midline shift, acute infarct. White matter hypodensity is nonspecific but suggestive of microvascular ischemic change. The ventricles and sulci demonstrate mild age-related involutional changes. 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 Impression: No acute intracranial abnormality. Atrophy and microvascular ischemic changes. Electronically signed by: Scot Dewitt M.D. 02/24/2017 7:37 PM Dictated Date/Time: 02/24/2017 7:31 PM
[2017-02-24] MEDS ORDERED: COEN100C11 PO (19:46)
[2017-02-24] MEDS ORDERED: ASPI81TA28 PO (19:46)
[2017-02-24] MEDS ORDERED: ARM1 PO (19:46)
[2017-02-24 19:52] LABS: ALT/SGPT 14 U/L (12-78); AST/SGOT 12 U/L (15-37); BLOOD UREA NITROGEN 21 mg/dl (7-18); BUN/CREATININE RATIO 22.6 (10-20); CALCIUM 8.3 mg/dl (8.5-10.1); CARBON DIOXIDE 25 mmol/L (21-32); CHLORIDE 105 mmol/L (98-107); CREATININE 0.93 mg/dl (0.60-1.20); GLUCOSE 97 mg/dl (70-99); POTASSIUM 3.4 mmol/L (3.5-5.1); SODIUM 138 mmol/L (136-145)
[2017-02-24 19:55] LABS: ALKALINE PHOSPHATASE 145 U/L (45-117)
[2017-02-24 20:15] VITALS: BP 120/73; PULSE 94; O2SAT 100
[2017-02-24] MEDS ORDERED: ASPIRIN 324 MG CHEW PO STA (20:33)
== END 2017-02-24 20:50 | disposition home or self-care (01) ==
LOC: C.EDB 17:55 → C.EDC 20:50
DX: G45.9 Transient cerebral ischemic attack, unspecified (principal); Z85.3 Personal history of malignant neoplasm of breast; Z87.891 Personal history of nicotine dependence; Z79.82 Long term (current) use of aspirin; Z79.899 Other long term (current) drug therapy; Z91.09 Other allergy status, other than to drugs and biological substances; Z82.49 Family history of ischemic heart disease and other diseases of the circulatory system; Z80.9 Family history of malignant neoplasm, unspecified; Z82.3 Family history of stroke

== ENCOUNTER → 2017-03-06 | Outpatient (CLI) | payer BC ==
[~2017-03-06] MED LIST changes: +ARM1 PO; -ASPEC325 PO; +ASPI81TA28 PO; +COEN100C11 PO; -COENCAP9 PO; -OXYC-609 PO; -ULT50 PO; -[UNRECOGNIZED DRUG - CODE] PO
--- NOTE | 2017-03-06 12:18 | DIAGNOSTIC IMAGING REPORT ---
CAROTID DOPPLER NECK ART HISTORY: Mental status change G45.9 TIA (transient ischemic attack)[id number] COMPARISON: None. TECHNIQUE: Real-time, grayscale, and color Doppler sonography of the carotid arteries was performed. Imaging reviewed in the transverse and longitudinal planes. All measurements were calculated based on NASCET criteria. FINDINGS: Antegrade flow is seen in the bilateral vertebral arteries. The brachial pressures are hemodynamically similar. The peak systolic velocity within the right ICA is 80. The right systolic ratio is 1.2. The peak systolic velocity within the left ICA is 75. The left systolic ratio is 1.1. IMPRESSION: No hemodynamically significant stenosis seen within the carotid arteries. The above report was generated using voice recognition software. It may contain grammatical, syntax or spelling errors. Electronically signed by: Mian Soares M.D. 03/06/2017 12:17 PM Dictated Date/Time: 03/06/2017 12:16 PM
== END | disposition home or self-care (01) ==
LOC: C.ULTR 11:24
PROVIDERS: ATTEND Internal Medicine
DX: G45.9 Transient cerebral ischemic attack, unspecified (principal)

== ENCOUNTER → 2017-04-13 | Outpatient (CLI) | payer BC ==
[2017-04-13 12:22] LABS: EOS % 3.5 %; EOS ABS # 0.19 K/uL (0-0.5); HEMATOCRIT 33.4 % (37-47); HEMOGLOBIN 9.8 g/dL (12.0-16.0); IG# 0.03 K/uL (0.00-0.02); LYMPH ABS # 1.09 K/uL (1.2-3.4); MEAN CELL VOLUME 75.6 fL (80-100); MEAN CORPUSCULAR HEMOGLOBIN 22.2 pg (25-34); MEAN CORPUSCULAR HGB CONC 29.3 g/dl (32-36); MEAN PLATELET VOLUME 10.1 fL (7.4-10.4); MONO % 7.9 %; MONO ABS # 0.43 K/uL (0.11-0.59); NEUT % 68.1 %; NEUT ABS # 3.72 K/uL (1.4-6.5); PLATELET COUNT 418 K/uL (130-400); RED CELL DISTRIBUTION WIDTH CV 18.2 % (11.5-14.5); RED CELL DISTRIBUTION WIDTH SD 50.7 fL (36.4-46.3); WHITE BLOOD COUNT 5.46 K/uL (4.8-10.8)
[2017-04-13 12:39] LABS: ALBUMIN 2.9 gm/dl (3.4-5.0); ALT/SGPT 15 U/L (12-78); AST/SGOT 10 U/L (15-37); BLOOD UREA NITROGEN 15 mg/dl (7-18); CALCIUM 9.1 mg/dl (8.5-10.1); CARBON DIOXIDE 27 mmol/L (21-32); CREATININE 0.91 mg/dl (0.60-1.20); GLUCOSE 117 mg/dl (70-99); POTASSIUM 4.6 mmol/L (3.5-5.1); SODIUM 139 mmol/L (136-145)
[2017-04-13 12:45] LABS: ALKALINE PHOSPHATASE 134 U/L (45-117); CHOLESTEROL 142 mg/dl (0-200); LDL CHOLESTEROL CALCULATED 76 mg/dl; TOTAL PROTEIN 7.8 gm/dl (6.4-8.2); TRANSFERRIN 208 mg/dl (200-360)
== END | disposition home or self-care (01) ==
LOC: C.LAB1850 10:52
PROVIDERS: ATTEND Internal Medicine Hematology & Oncology
DX: C50.912 Malignant neoplasm of unspecified site of left female breast (principal); E78.5 Hyperlipidemia, unspecified; D64.9 Anemia, unspecified; E55.9 Vitamin D deficiency, unspecified

== ENCOUNTER → 2017-05-03 | Day surgery (SDC) | payer BC ==
[2017-04-18 09:46] VITALS: Ht 149.9 cm; Wt 57.7 kg
[~2017-05-03] VITALS: Ht 149.9 cm; Wt 57.7 kg
[~2017-05-03] MED LIST changes: +500ML BSS 0.3ML EPI 1:1000PF IRRIG ONE; +ACETAMINOPHEN 325 MG TAB PO PRN; +AMVISC PLUS 0.8ML SYRINGE INT OCU ONE; +ASPI325T45 PO; -ASPI81TA28 PO; +ATROPINE SULFATE 0.1 MG/ML 5ML SYR IV PRN; +BSS FLUSH ONE; +ENDOCOAT 0.85ML SYRINGE INT OCU ONE; +EpHEDrine SULFATE INJ 50 MG/ML AMP IV PRN; +EpINEphrine INJ 1MG/ML AMP 1 MG/ML AMP ONE; +FERR15DR PO; +LACTATED RINGER'S 1000ML 500 ML IV SCH; +LIDOCAINE 4% OP SOLN DROP CHARGE ONE; +LIDOCAINE 4% OP SOLN DROP CHARGE OPL SCH; +LIDOCAINE HCL 1% MPF 2 ML VIAL ONE; +MIDAZOLAM HCL 1 MG/ML 2ML VIAL ONE; +MIX: 4ML BSS 1ML EPI 1:1000 PF TOP ONE; +MOXIFLOXACIN OPH SOLN PER DROP CHARGE ONE; +POVIDONE-IODINE OP SOLN 30 ML BTL ONE; +PROPARACAINE 0.5% OP SOLN PER DROP CHARGE OPL SCH; +TOBRAMYCIN/DEXAMETHASONE OPH OINT PER APPLN CHARGE ONE
[2017-05-03] MEDS: PHENYLEPHRINE HCL 2.5% OP SOLN PER DROP CHARGE OPL SCH ×3 (08:42→08:52)
[2017-05-03] MEDS: TROPICAMIDE 1% OP SOLN PER DROP CHARGE OPL SCH ×3 (08:43→08:53)
--- NOTE | 2017-05-03 08:43 | History & Physical Bridge - SC ---
H&P Re-Evaluation Bridge Note: I have examined the patient, reviewed the History & Physical and in the interval since the performance of the History & Physical I have noted the following changes of clinical significance: No changes noted
[2017-05-03] MEDS: CYCLOPENTOLATE HCL 1% OP SOLN PER DROP CHARGE OPL SCH ×3 (08:44→08:54)
[2017-05-03] MEDS: MOXIFLOXACIN OPH SOLN PER DROP CHARGE OPL SCH ×3 (08:45→08:55)
--- NOTE | 2017-05-03 09:47 | [facility] Post Operative Brief Note ---
Immediate Operative Summary Operative Date May 03, 2017. Pre-Operative Diagnosis Left Eye cataract Post-Operative Diagnosis left eye cataract Procedure(s) Performed Left Cataract Phacoemulsification With Intraocular Lens Implant Surgeon Dr. Wu Cloth Finishing Range Back Tender Surgeon(s) none Estimated Blood Loss 0 Findings Consistent with Post-Op Diagnosis Specimens none Anesthesia Type MAC Complication(s) none Disposition Accompanied Pt To Recovery: no Disposition:
--- NOTE | 2017-05-03 09:48 | [facility] Operative Report ---
Operative Report Date of Service May 03, 2017. Operative Report DATE OF OPERATION: 05/03/17 PREOPERATIVE DIAGNOSIS: Senile nuclear cataract, left eye POSTOPERATIVE DIAGNOSIS: Senile nuclear cataract, left eye PROCEDURE PERFORMED: Phacoemulsification with intraocular lens implantation, left eye SURGEON: Dr. Eamon Wu ANESTHESIA: Topical with 1% intracameral lidocaine and monitored anesthesia care COMPLICATIONS: None DESCRIPTION OF PROCEDURE: After positively identifying the patient both verbally and by wristband in the preoperative area, the left eye was marked as the operative eye. The patient was then brought back to the operating room by the anesthesia and nursing staff where they were given a drop of Lidocaine and betadine into the operative eye. They were then sterilely prepped and draped in the standard fashion typical for ophthalmic surgery. Steri-strips were placed along the upper eyelids to keep the lashes back, and a lid speculum was placed into the operative eye. At this point, a documented time out was performed with members of the ophthalmology, nursing, and anesthesia staffs all agreeing upon the correct patient, correct location for surgery, correct procedure, and correct type and power of intraocular lens to be implanted. The microscope was then swung into position. First, a paracentesis wound was made using a sideport blade. Then, in sequence, 1% preservative-free lidocaine followed by Endocoat viscoelastic was injected into the anterior chamber. Next , the main incision was made with a keratome blade in triplanar fashion. A sharp cystotome was introduced into the eye and used to create a tear in the anterior capsule, which was directed into a continuous curvilinear capsulorrhexis using Utrata forceps. Hydrodissection was then performed with BSS on a flat-tip cannula. Next, the phacoemulsification handpiece was introduced into the eye and used to remove the nucleus in a xozgyl-hez-enjplni fashion. This was done without complication and then the irrigation-aspiration handpiece was introduced into the eye and used to remove all remaining cortical and epinuclear material. Amvisc was then injected into the anterior chamber as well as into the capsular bag and using the lens injector system, an MX60 23.0 D lens, serial number [id number], and expiration date 01/2020 was injected into the capsular bag and rotated into the correct position. Next, the irrigation- aspiration handpiece was used to remove all remaining Amvisc. BSS was used to hydrate the main wound, and then BSS was injected into the paracentesis site to reach physiologic pressure and then the main wound was checked and found to be watertight. The patient was given drops of Vigamox and Tobradex ointment into the operative eye, and then the surrounding area was cleaned and dried. A clear plastic shield was placed over the eye and the patient was then sat up and taken from the operating room by the anesthesia staff having tolerated the procedure well and suffering no complications. DISPOSITION: The patient was returned to the recovery room in stable condition. I attest to the content of the Intraoperative Record and any orders documented therein. Any exceptions are noted below.
--- NOTE | 2017-05-03 09:49 | Discharge Instructions-SurgCtr ---
Discharge Instructions Date of Service May 03, 2017. Visit Reason for Visit: Cataract Left Eye Discharge Discharge Diagnosis / Problem: left cataract Discharge Goals Goal(s): Decrease discomfort, Improve function Activity Recommendations Activity Limitations: as noted below Anesthesia . Post Anesthesia Instructions: If you have had General Anesthesia or IV Sedation: * Do not drive today. * Resume driving when surgeon permits. * Do not make important decisions or sign legal documents today. * Call surgeon for: 1. Temperature elevations greater than 101 degrees F. 2. Uncontrollable pain. 3. Excessive bleeding. 4. Persistent nausea and vomiting. 5. Medication intolerance (nausea, vomiting or rash). * For nausea and vomiting use only clear liquids such as: tea, soda, bouillon until nausea subsides, then gradually increase diet as tolerated. * If you have any concerns or questions, call your surgeon's office. If physician is unavailable and it is an emergency, call 911 or go to the nearest emergency room. . Instructions / Follow-Up Instructions / Follow-Up ACTIVITY RECOMMENDATIONS: * Light activities. * You may walk outside, read, watch television. * You may notice redness on the white part of the eye and some blurry vision - this is normal. MEDICATIONS: Resume previous medications unless instructed otherwise by your surgeon. Start all eye drops at 12 pm today: * Eye drops (today): Prednisone - one drop in operative eye every 2 hours while awake Ofloxacin - one drop in operative eye every 2 hours while awake Ilevro - one drop in operative eye daily SPECIAL CARE INSTRUCTIONS: * Tape plastic shield over eye to sleep at night. Call your doctor at with any concerns or problems. FOLLOW UP VISIT: Follow-up with Dr Wu at [facility] as scheduled. Diet Recommendations Home Diet: no limitations Procedures Procedures Performed: Left Cataract Phacoemulsification With Intraocular Lens Implant Pending Studies Studies pending at discharge: no Medical Emergencies . Who to Call and When: Medical Emergencies: If at any time you feel your situation is an emergency, please call 911 immediately. . Non-Emergent Contact Non-Emergency issues call your: Surgeon . . "Provider Documentation" section prepared by Eamon Wu. .
[2017-05-03 09:50] VITALS: TEMP 36.7
[2017-05-03 10:12] VITALS: BP 116/73; PULSE 79; O2SAT 100
--- NOTE | 2017-05-03 10:12 | Anesthesia Progress Nt - [facility] ---
Anesthesia Post Op Note Date & Time May 03, 2017 at 10:12 Vital Signs Pain Intensity: 0 Vital Signs Past 12 Hours Date Time Temp Pulse Resp B/P (MAP) Pulse Ox O2 Delivery O2 Flow Rate FiO2 05/03/17 09:50 36.7 83 16 125/89 (101) 100 Room Air 05/03/17 08:34 36.7 85 22 106/67 (80) 99 Room Air Notes Mental Status: alert / awake / arousable, participated in evaluation Pt Amnestic to Procedure: Yes Nausea / Vomiting: adequately controlled Pain: adequately controlled Airway Patency, RR, SpO2: stable & adequate BP & HR: stable & adequate Hydration State: stable & adequate Anesthetic Complications: no major complications apparent
== END | disposition home or self-care (01) ==
LOC: X.SURG 08:16
PROVIDERS: ATTEND Ophthalmology
DX: H25.12 Age-related nuclear cataract, left eye (principal); F32.9 Major depressive disorder, single episode, unspecified; Z86.73 Personal history of transient ischemic attack (TIA), and cerebral infarction without residual deficits; Z85.3 Personal history of malignant neoplasm of breast; Z96.641 Presence of right artificial hip joint; Z90.12 Acquired absence of left breast and nipple; Z79.899 Other long term (current) drug therapy; Z79.82 Long term (current) use of aspirin

== ENCOUNTER → 2017-05-17 | Day surgery (SDC) | payer BC ==
[2017-05-15 08:31] VITALS: Ht 149.9 cm; Wt 57.7 kg
[~2017-05-17] VITALS: Ht 149.9 cm; Wt 57.7 kg
[~2017-05-17] MED LIST changes: +AcetaZOLAMIDE 250 MG TAB PO ONE; -LIDOCAINE 4% OP SOLN DROP CHARGE OPL SCH; +LIDOCAINE 4% OP SOLN DROP CHARGE OPR SCH; -PROPARACAINE 0.5% OP SOLN PER DROP CHARGE OPL SCH; +PROPARACAINE 0.5% OP SOLN PER DROP CHARGE OPR SCH
[2017-05-17] MEDS: PHENYLEPHRINE HCL 2.5% OP SOLN PER DROP CHARGE OPR SCH ×3 (06:33→06:43)
[2017-05-17] MEDS: TROPICAMIDE 1% OP SOLN PER DROP CHARGE OPR SCH ×3 (06:34→06:44)
[2017-05-17] MEDS: CYCLOPENTOLATE HCL 1% OP SOLN PER DROP CHARGE OPR SCH ×3 (06:35→06:45)
[2017-05-17] MEDS: MOXIFLOXACIN OPH SOLN PER DROP CHARGE OPR SCH ×3 (06:36→06:46)
--- NOTE | 2017-05-17 07:21 | [facility] Post Operative Brief Note ---
Immediate Operative Summary Operative Date May 17, 2017. Pre-Operative Diagnosis Right Eye Cataract Post-Operative Diagnosis same Procedure(s) Performed Right Cataract Phacoemulsification With Intraocular Lens implant Surgeon Dr. Clive Wu Front Desk Clerk Surgeon(s) 0 Estimated Blood Loss 0 Findings Consistent with Post-Op Diagnosis Specimens none Anesthesia Type MAC Complication(s) none Disposition Disposition:
--- NOTE | 2017-05-17 07:22 | [facility] Operative Report ---
Operative Report Date of Service May 17, 2017. Operative Report DATE OF OPERATION: 05/17/17 PREOPERATIVE DIAGNOSIS: Senile nuclear cataract, right eye POSTOPERATIVE DIAGNOSIS: Senile nuclear cataract, right eye PROCEDURE PERFORMED: Phacoemulsification with intraocular lens implantation, right eye SURGEON: Dr. Eamon Wu ANESTHESIA: Topical with 1% intracameral lidocaine and monitored anesthesia care COMPLICATIONS: None DESCRIPTION OF PROCEDURE: After positively identifying the patient both verbally and by wristband in the preoperative area, the right eye was marked as the operative eye. The patient was then brought back to the operating room by the anesthesia and nursing staff where they were given a drop of Lidocaine and betadine into the operative eye. They were then sterilely prepped and draped in the standard fashion typical for ophthalmic surgery. Steri-strips were placed along the upper eyelids to keep the lashes back, and a lid speculum was placed into the operative eye. At this point, a documented time out was performed with members of the ophthalmology, nursing, and anesthesia staffs all agreeing upon the correct patient, correct location for surgery, correct procedure, and correct type and power of intraocular lens to be implanted. The microscope was then swung into position. First, a paracentesis wound was made using a sideport blade. Then, in sequence, 1% preservative-free lidocaine followed by Endocoat viscoelastic was injected into the anterior chamber. Next , the main incision was made with a keratome blade in triplanar fashion. A sharp cystotome was introduced into the eye and used to create a tear in the anterior capsule, which was directed into a continuous curvilinear capsulorrhexis using Utrata forceps. Hydrodissection was then performed with BSS on a flat-tip cannula. Next, the phacoemulsification handpiece was introduced into the eye and used to remove the nucleus in a [id number] fashion. This was done without complication and then the irrigation-aspiration handpiece was introduced into the eye and used to remove all remaining cortical and epinuclear material. Amvisc was then injected into the anterior chamber as well as into the capsular bag and using the lens injector system, an MX60 23.0 D lens, serial number [id number], and expiration date 03/2019 was injected into the capsular bag and rotated into the correct position. Next, the irrigation- aspiration handpiece was used to remove all remaining Amvisc. BSS was used to hydrate the main wound, and then BSS was injected into the paracentesis site to reach physiologic pressure and then the main wound was checked and found to be watertight. The patient was given drops of Vigamox and Tobradex ointment into the operative eye, and then the surrounding area was cleaned and dried. A clear plastic shield was placed over the eye and the patient was then sat up and taken from the operating room by the anesthesia staff having tolerated the procedure well and suffering no complications. DISPOSITION: The patient was returned to the recovery room in stable condition. I attest to the content of the Intraoperative Record and any orders documented therein. Any exceptions are noted below.
--- NOTE | 2017-05-17 07:23 | Discharge Instructions-SurgCtr ---
Discharge Instructions Date of Service May 17, 2017. Visit Reason for Visit: Right Cataract Discharge Discharge Diagnosis / Problem: right cataract Discharge Goals Goal(s): Decrease discomfort, Improve function Activity Recommendations Activity Limitations: as noted below Anesthesia . Post Anesthesia Instructions: If you have had General Anesthesia or IV Sedation: * Do not drive today. * Resume driving when surgeon permits. * Do not make important decisions or sign legal documents today. * Call surgeon for: 1. Temperature elevations greater than 101 degrees F. 2. Uncontrollable pain. 3. Excessive bleeding. 4. Persistent nausea and vomiting. 5. Medication intolerance (nausea, vomiting or rash). * For nausea and vomiting use only clear liquids such as: tea, soda, bouillon until nausea subsides, then gradually increase diet as tolerated. * If you have any concerns or questions, call your surgeon's office. If physician is unavailable and it is an emergency, call 911 or go to the nearest emergency room. . Instructions / Follow-Up Instructions / Follow-Up ACTIVITY RECOMMENDATIONS: * Light activities. * You may walk outside, read, watch television. * You may notice redness on the white part of the eye and some blurry vision - this is normal. MEDICATIONS: Resume previous medications unless instructed otherwise by your surgeon. Start all eye drops at 9:30 am today: * Eye drops (today): Prednisone - one drop in operative eye every 2 hours while awake Ofloxacin - one drop in operative eye every 2 hours while awake Ilevro - one drop in operative eye daily SPECIAL CARE INSTRUCTIONS: * Tape plastic shield over eye to sleep at night. Call your doctor at with any concerns or problems. FOLLOW UP VISIT: Follow-up with Dr Wu at [facility] as scheduled. Diet Recommendations Home Diet: no limitations Procedures Procedures Performed: Right Cataract Phacoemulsification With Intraocular Lens implant Pending Studies Studies pending at discharge: no Medical Emergencies . Who to Call and When: Medical Emergencies: If at any time you feel your situation is an emergency, please call 911 immediately. . Non-Emergent Contact Non-Emergency issues call your: Surgeon . . "Provider Documentation" section prepared by Eamon Wu. .
[2017-05-17 07:33] VITALS: TEMP 36.8
[2017-05-17 07:41] VITALS: BP 116/70; PULSE 75; O2SAT 100
--- NOTE | 2017-05-17 07:52 | Anesthesia Progress Nt - [facility] ---
Anesthesia Post Op Note Date & Time May 17, 2017 at 07:52 Vital Signs Pain Intensity: 0 Vital Signs Past 12 Hours Date Time Temp Pulse Resp B/P (MAP) Pulse Ox O2 Delivery O2 Flow Rate FiO2 05/17/17 07:41 75 16 116/70 (85) 100 Room Air 05/17/17 07:33 36.8 76 16 112/60 (77) 100 Room Air 05/17/17 06:27 36.3 76 16 119/65 (83) 100 Room Air Notes Mental Status: alert / awake / arousable, participated in evaluation Pt Amnestic to Procedure: Yes Nausea / Vomiting: adequately controlled Pain: adequately controlled Airway Patency, RR, SpO2: stable & adequate BP & HR: stable & adequate Hydration State: stable & adequate Anesthetic Complications: no major complications apparent
== END | disposition home or self-care (01) ==
LOC: X.SURG 06:09
PROVIDERS: ATTEND Ophthalmology
DX: H25.11 Age-related nuclear cataract, right eye (principal); I10 Essential (primary) hypertension; Z80.3 Family history of malignant neoplasm of breast; Z90.12 Acquired absence of left breast and nipple; Z90.710 Acquired absence of both cervix and uterus; Z90.89 Acquired absence of other organs; Z98.51 Tubal ligation status; Z98.818 Other dental procedure status; Z98.890 Other specified postprocedural states; Z79.82 Long term (current) use of aspirin; Z79.899 Other long term (current) drug therapy; Z85.3 Personal history of malignant neoplasm of breast; Z83.3 Family history of diabetes mellitus

== ENCOUNTER 2020-12-25 10:34 | Inpatient (IN) ==
--- NOTE | 2020-12-25 12:44 | Emergency Department Note ---
Impression & Plan Acute confusion, Hypomagnesemia, Elevated troponin ED Provider Note INFORMANT: Patient ED PROVIDER(S): Kevin Hartman MD CHIEF COMPLAINT: Confusion PLAN: Disposition: Admitted Condition: Good Outpatient prescription management: none Referral: None MEDICAL DECISION MAKING: Patient presented with acute confusion. She was doing relatively well on examination. Her ECG did not reveal any acute findings. The patient head CT was negative. Her laboratory studies were very concerning for severely low magnesium and an elevated troponin. The patient was given aspirin and IV magnesium. I d iscussed further management in the hospital. [facility] The patient was evaluated in the ER for further management. Triage Nursing notes reviewed and agree them. Vital Signs: reviewed and remarkable for no significant abnormalities Differential diagnosis: CVA, TIA, Infection, hypoglycemia, electrolyte abnormalities, overdose, toxicologic, cardiac sources, intracerebral event, neurologic, trauma, as well as other pathologies. Diagnostics interpreted by me: EC Lead ECG performed and revealed Normal sinus rhythym at 75, normal Condon, QRS normal. No elevation or depression. No PACs or PVCs Cardiac Monitoring: Cardiac monitoring ordered by me: The patient was placed on continuous cardiac monitoring and observed. It revealed a normal sinus rhythm at 84 beats per minute without ectopy or evidence of dysrhythmia. Imaging studies: Head CT: A noncontrast CT scan of the head was performed and was negative for tumor, fracture, intracranial hemorrhage, or other acute pathology. Chest x-ray. Findings: A chest x-ray was performed and revealed no pneumothorax, effusion, infiltrate, pulmonary edema, free air under the diaphragm, or wide mediastinum. Impression: No acute disease. HPI: The patient is a 65 year old female who presents to the Emergency Room with complaints of confusion. This started today and is getting mixed up about outpatient lab orders, visiting the lab and having difficulty finding her car. Sent from PCPs office. The patient also notes the following associated symptoms, none. The patient has taken no medication for relieving factors. Current pain is rated as 0/10. Has a history of stroke and word finding difficulty. Feels at baseline. Lives alone. Pt denies LOC, headache, fevers, chills, diaphoresis, visual changes, neck pain, chest pain, breathing difficulties, nausea, vomiting, abdominal pain, back pain, melena, hematochezia, urinary symptoms, numbness, weakness, lymphadenopathy, rash, or other complaint s. ROS: See above HPI for pertinent positives & negatives. A total of 10 systems reviewed and were otherwise negative. PAST MEDICAL HISTORY:See Below , stroke PAST SURGICAL HISTORY:See Below, FAMILY HISTORY:See Below SOCIAL HISTORY:See Below, single HOME MEDICATIONS:See Below ALLERGIES:See Below VITALS:See Below PHYSICAL EXAMINATION: GENERAL: Awake, alert, well-appearing, in no distress HENT: Normocephalic, atraumatic. Oropharynx unremarkable. EYES: Normal conjunctiva. Sclera non-icteric. PERRL EOMI NECK: Inspection normal. Non-tender. Supple. No nuchal rigidity. FROM. No masses. RESPIRATORY: Clear to auscultation. No wheezes. No rales. Normal respiratory effort. CARDIAC: Normal rate. Normal rhythm. No murmurs. No rubs. Extremities warm and well perfused. Pulses equal. No JVD. GI: Soft, non-distended. No tenderness to palpation. No rebound or guarding. No masses. RECTAL: Deferred. MUSCULOSKELETAL: Atraumatic. Chest examination reveals no tenderness. The back is symmetrical on inspection without obvious abnormality. There is no CVA tenderness to palpation. No joint edema. LOWER EXTREMITIES: Calves are equal size bilaterally and non-tender. No edema. No discoloration. NEURO: Normal sensorium. No sensory or motor deficits noted. Difficulty with word finding, mild. no drift. SKIN: No rash or jaundice noted. Kevin Hartman MD Past Med/Surg History Medical History Arthralgia of multiple sites Breast cancer (~03/2009) Dislocation of hip prosthesis History of fracture of right hip Surgical History H/O breast surgery H/O section H/O hysterectomy for benign disease H/O left mastectomy H/O: hysterectomy History of hip surgery dislocation of right hip prosthesis 09/2018 [facility] History of revision of total hip arthroplasty History of tonsillectomy Hx of cholecystectomy Family History Mother Colon cancer Hypertension Osteoporosis Thyroid disorder Father , age 77 Coronary heart disease Stroke , Onset Age: 77 Daughter , age 30 Ovarian cancer Breast cancer , Onset Age: 30 Social History Smoking Status: Former smoker Hx Alcohol Use: Yes Alcohol Intake Frequency Comment: socially Hx Substance Use: No Preferred Language: [place] Visual Impairment: No Limitations Hearing Ability: Normal marital status: single Current Living Situation: Alone current occupational status: employed Feels Safe at Home: Yes Childhood Exposure to Second-Hand Smoke: No Physical Activity Frequency: 1-2 Times per Week Physical Activity Frequency Comment: Ireggular Seatbelt Use: always Sunscreen Use: Yes Allergies Allergies Allergy/AdvReac Type Severity Reaction Status Date / Time adhesive AdvReac Mild HIVES Verified 12/25/20 15:06 Home Meds Home Medications Medication Instructions Recorded Confirmed alendronate 70 mg tablet (Fosamax) 70 mg PO WK 01/08/19 12/25/20 acetaminophen 500 mg tablet 1,000 mg PO TID PRN 09/23/19 12/25/20 (Tylenol Extra Strength) metoprolol succinate 25 mg 25 mg PO QAM 12/25/20 12/25/20 tablet,extended release 24 hr (Toprol XL) Previous Rx's Medication Instructions Recorded omeprazole 40 mg capsule,delayed 40 mg PO QAM #30 cap 02/17/20 release venlafaxine 75 mg tablet,extended 225 mg PO HS #270 tab 07/20/20 release 24 hr Results & Data (ED) Vital Signs Vital Signs - 24 hr 12/25/20 11:17 12/25/20 11:45 12/25/20 11:49 Temperature 36.9 C Temperature Source Oral Pulse Rate 88 75 79 Pulse Rate [Apical] 79 Pulse Rate from SpO2 Sensor Pulse Rhythm Regular Pulse Rhythm [Apical] Regular Pulse Strength [Apical] Normal Respiratory Rate 18 19 16 Respiratory Effort / Characteristics Non-Labored Non-Labored Spontaneous Respiratory Depth Normal Normal Respiratory Pattern Regular Regular Blood Pressure 164/95 H Blood Pressure [Left Arm] 153/79 H Blood Pressure Mean 118 Blood Pressure Mean [Left Arm] 103 Blood Pressure Position [Left Arm] Semi-fowlers Pulse Oximetry 100 100 Oxygen Delivery Method Room Air Room Air Room Air Sepsis Recent Fever Within 48 Hours No Sepsis New/Unexplained Change in Mental Status No Sepsis Action Taken by Nursing No Action Required 12/25/20 12:00 12/25/20 12:30 12/25/20 13:00 Temperature Temperature Source Pulse Rate 79 76 86 Pulse Rate [Apical] Pulse Rate from SpO2 Sensor 79 75 Pulse Rhythm Pulse Rhythm [Apical] Pulse Strength [Apical] Respiratory Rate 14 13 18 Respiratory Effort / Characteristics Respiratory Depth Respiratory Pattern Blood Pressure 158/82 H 168/90 H 157/89 H Blood Pressure [Left Arm] Blood Pressure Mean 107 116 111 Blood Pressure Mean [Left Arm] Blood Pressure Position [Left Arm] Pulse Oximetry 100 99 Oxygen Delivery Method Room Air Room Air Room Air Sepsis Recent Fever Within 48 Hours Sepsis New/Unexplained Change in Mental Status Sepsis Action Taken by Nursing 12/25/20 13:30 Temperature Temperature Source Pulse Rate 84 Pulse Rate [Apical] Pulse Rate from SpO2 Sensor Pulse Rhythm Pulse Rhythm [Apical] Pulse Strength [Apical] Respiratory Rate 16 Respiratory Effort / Characteristics Respiratory Depth Respiratory Pattern Blood Pressure 162/87 H Blood Pressure [Left Arm] Blood Pressure Mean 112 Blood Pressure Mean [Left Arm] Blood Pressure Position [Left Arm] Pulse Oximetry Oxygen Delivery Method Room Air Sepsis Recent Fever Within 48 Hours Sepsis New/Unexplained Change in Mental Status Sepsis Action Taken by Nursing Laboratory Data Result diagrams: 12/25/20 13:45 12/25/20 13:45 Lab Results 12/25/20 12/25/20 12/25/20 Range/Units 13:45 13:45 15:29 WBC 6.01 (4.8-10.8) K/uL RBC 4.36 (4.2-5.4) M/uL Hgb 11.4 L (12.0-16.0) g/dL Hct 36.5 L (37-47) % MCV 83.7 (80-100) fL MCH 26.1 (25-34) pg MCHC 31.2 L (32-36) g/dL RDW Std Deviation 49.3 H (36.4-46.3) fL RDW Coeff of Blaire 16.0 H (11.5-14.5) % Plt Count 380 (130-400) K/uL MPV 10.6 H (7.4-10.4) fL Immature Gran % (Auto) 0.3 % Neut % (Auto) 65.6 % Lymph % (Auto) 23.6 % [place] % (Auto) 8.2 % Eos % (Auto) 2.0 % Baso % (Auto) 0.3 % Neut # (Auto) 3.94 (1.4-6.5) K/uL Lymph # (Auto) 1.42 (1.2-3.4) K/uL [place] # (Auto) 0.49 (0.11-0.59) K/uL Eos # (Auto) 0.12 (0-0.5) K/uL Baso # (Auto) 0.02 (0-0.2) K/uL Immature Gran # (Auto) 0.02 (0.00-0.02) K/uL Sodium 140 (136-145) mmol/L Potassium 3.8 (3.5-5.1) mmol/L Chloride 106 (98-107) mmol/L Carbon Dioxide 24 (21-32) mmol/L Anion Gap 9.0 (3-11) BUN 11 (7-18) mg/dl Creatinine 0.89 (0.6-1.2) mg/dl Est Cr Clr Drug Dosing 45.6 ml/min Est GFR ( Amer) 77.7 ml/min Est GFR (Non-Af Amer) 67.1 ml/min BUN/Creatinine Ratio 12.1 (10-20) Glucose 90 (70-99) mg/dl Calcium 6.8 L (8.5-10.1) mg/dl Ionized Calcium (1.12-1.32) mmol/L Phosphorus (2.5-4.9) mg/dl Magnesium 0.7 L* (1.8-2.4) mg/dl Total Bilirubin 0.4 (0.2-1) mg/dl AST 13 L (15-37) U/L ALT 9 L (12-78) U/L Alkaline Phosphatase 114 (45-117) U/L Troponin I 0.135 H* (0-0.045) ng/ml Total Protein 7.8 (6.4-8.2) gm/dl Albumin 2.7 L (3.4-5.0) gm/dl Globulin 5.1 H (2.5-4.0) gm/dl Albumin/Globulin Ratio 0.5 L (0.9-2) TSH 1.000 (0.300-4.500) uIu/ml COVID-19 Eval Order Covid19 at [facility] SARS-CoV-2 (PCR) (Negative) 12/25/20 12/25/20 12/25/20 Range/Units 15:29 15:36 15:36 WBC (4.8-10.8) K/uL RBC (4.2-5.4) M/uL Hgb (12.0-16.0) g/dL Hct (37-47) % MCV (80-100) fL MCH (25-34) pg MCHC (32-36) g/dL RDW Std Deviation (36.4-46.3) fL RDW Coeff of Blaire (11.5-14.5) % Plt Count (130-400) K/uL MPV (7.4-10.4) fL Immature Gran % (Auto) % Neut % (Auto) % Lymph % (Auto) % [place] % (Auto) % Eos % (Auto) % Baso % (Auto) % Neut # (Auto) (1.4-6.5) K/uL Lymph # (Auto) (1.2-3.4) K/uL [place] # (Auto) (0.11-0.59) K/uL Eos # (Auto) (0-0.5) K/uL Baso # (Auto) (0-0.2) K/uL Immature Gran # (Auto) (0.00-0.02) K/uL Sodium (136-145) mmol/L Potassium (3.5-5.1) mmol/L Chloride (98-107) mmol/L Carbon Dioxide (21-32) mmol/L Anion Gap (3-11) BUN (7-18) mg/dl Creatinine (0.6-1.2) mg/dl Est Cr Clr Drug Dosing ml/min Est GFR ( Amer) ml/min Est GFR (Non-Af Amer) ml/min BUN/Creatinine Ratio (10-20) Glucose (70-99) mg/dl Calcium (8.5-10.1) mg/dl Ionized Calcium 0.78 L (1.12-1.32) mmol/L Phosphorus 4.0 (2.5-4.9) mg/dl Magnesium (1.8-2.4) mg/dl Total Bilirubin (0.2-1) mg/dl AST (15-37) U/L ALT (12-78) U/L Alkaline Phosphatase (45-117) U/L Troponin I (0-0.045) ng/ml Total Protein (6.4-8.2) gm/dl Albumin (3.4-5.0) gm/dl Globulin (2.5-4.0) gm/dl Albumin/Globulin Ratio (0.9-2) TSH (0.300-4.500) uIu/ml COVID-19 Eval Order SARS-CoV-2 (PCR) NEGATIVE (Negative) Administered Medications Magnesium Sulfate 4 gm/ Sodium (Chloride) 508 mls @ 63.5 mls/hr IV NOW ONE Stop: 12/25/20 23:29 Last Infusion: 12/25/20 17:58 Dose: 0 mls/hr Documented by: [id number] Admin: 12/25/20 15:50 Dose: 63.5 mls/hr Documented by: [id number] Discontinued Medications Aspirin (Aspirin Chew 324 Mg) 324 mg PO NOW STA Stop: 12/25/20 15:04 Last Admin: 12/25/20 15:25 Dose: 324 mg Documented by: [id number] Magnesium Sulfate/Dextrose (Magnesium Sulfate / D5w) 1 gm in 100 mls @ 100 mls/hr IV Q1H TANVIR Stop: 12/25/20 17:02 Last Infusion: 12/25/20 17:58 Dose: 0 mls/hr Documented by: [id number] Admin: 12/25/20 16:43 Dose: 100 mls/hr Documented by: [id number] Infusion: 12/25/20 16:42 Dose: 0 mls/hr Documented by: [id number] Admin: 12/25/20 15:25 Dose: 100 mls/hr Documented by: [id number] Imaging Data Radiologist's Impression: Chest X-Ray 12/25/20 12:24 SINGLE VIEW CHEST CLINICAL HISTORY: Generalized weakness. FINDINGS: An AP, portable, upright chest radiograph is compared to study dated 07/23/2016. The cardiomediastinal silhouette is unremarkable. The lungs and pleural spaces are clear. No pneumothorax is seen. The skeletal structures are osteopenic. The bony thorax is grossly intact. Surgical clips project over the left lower chest on the left upper quadrant of the abdomen. IMPRESSION: No active disease in the chest. ACT 112: Negative or not required by law. Electronically signed by: Matt Blue M.D. 12/25/2020 1:[address] 12/25/20 12:24 CT head/brain wo con CLINICAL HISTORY: 65 years-old Female with AMS. Acutely altered mental status TECHNIQUE: Multiple axial CT images of the head were obtained without contrast. A dose lowering technique was utilized adhering to the principles of ALARA. CT DOSE: 690.05 mGycm COMPARISON: Head CT 02/24/2017 FINDINGS: No acute intracranial hemorrhage, midline shift, intracranial mass, hydrocephalus, territorial ischemia or abnormal extra-axial collection. Age- related involutional changes with ex vacuo ventriculomegaly. Progressively worsened white matter hypodensities suggestive of chronic microvascular ischemic disease. There is a hypodense 3.2 cm focus involving the right occipital lobe on image 12 series 2 with mild thinning of the adjacent posterior cortex on image 11 of series 2 which is new from prior. The calvarium is intact. The paranasal sinuses, mastoid air cells, and middle ear cavities are clear. IMPRESSION: 1. No acute intracranial hemorrhage, midline shift or acute territorial infarct. 2. 3.2 cm hypodense focus within the right occipital lobe is new from the 2017 comparison and is suggestive of encephalomalacia from chronic insult. Vasogenic edema related to an underlying lesion is considered less likely. Correlation with patient history and any prior imaging recommended. ACT 112: Negative or not required by law. The above report was generated using voice recognition software. It may contain grammatical, syntax or spelling errors. Electronically signed by: Kvng Coffey M.D. 12/25/2020 2:18 PM Brain MRI 12/25/20 15:40 MRI OF THE BRAIN WITHOUT IV CONTRAST CLINICAL HISTORY: Change in mental status. COMPARISON STUDY: CT of the brain performed the same day 12/25/2020. TECHNIQUE: MRI of the brain was performed utilizing various T1 and T2-weighted sequences in the axial, sagittal, and coronal planes. IV contrast was not administered for this examination. FINDINGS: Brain parenchyma: There is age-related involutional change noting moderate confluent subcortical and periventricular microangiopathic disease. There is a focus of right occipital encephalomalacia. There is no hemorrhage or mass effect. There is no restricted diffusion typical for acute ischemia. Allan-white matter differentiation is preserved. No extra-axial fluid collection is seen. The cerebellar tonsils are normal in configuration. Ventricles, sulci, and cisterns: Prominent secondary to involutional change. Pituitary and sella: Unremarkable. Intracranial vasculature: Normal flow voids are maintained at the skull base. Orbits: The bony orbits are grossly intact. Orbital contents are normal in appearance noting bilateral ocular lens implants. Sinuses and mastoids: Clear. Calvarium: Unremarkable. Cervical cord: Partially visualized cervical spinal cord is normal in morphology and signal intensity. IMPRESSION: 1. Senescent changes as above with no acute intracranial abnormality. 2. A focus of right occipital encephalomalacia is consistent with a remote insult. ACT 112: Negative or not required by law. Electronically signed by: Matt Blue M.D. 12/25/2020 6:44 PM Discharge Plan Visit Data Chief Complaint: Confusion Stated Complaint: CONFUSION ED Provider: Kevin Hartman Discharge Problem: Acute confusion, Hypomagnesemia, Elevated troponin Discharge Instructions Interventions: ED Discharge Assessment Last Done: 12/25/20 18:44
--- NOTE | 2020-12-25 13:13 | XRay Report ---
SINGLE VIEW CHEST CLINICAL HISTORY: Generalized weakness. FINDINGS: An AP, portable, upright chest radiograph is compared to study dated 07/23/2016. The cardiom ediastinal silhouette is unremarkable. The lungs and pleural spaces are clear. No pneumothorax is see n. The skeletal structures are osteopenic. The bony thorax is grossly intact. Surgical clips project over the left lower chest on the left upper quadrant of the abdomen. IMPRESSION: No active disease in the chest. ACT 112: Negative or not required by law. Electronically signed by: Matt Blue M.D. 12/25/2020 1:12 PM
[2020-12-25 13:54] LABS: Basophils # (auto) 0.02 K/uL (0-0.2); Basophils % (auto) 0.3 %; Eosinophils # (auto) 0.12 K/uL (0-0.5); Hematocrit (blood only) 36.5 % (37-47); Hemoglobin 11.4 g/dL (12.0-16.0); Immature Granulocytes # (auto) 0.02 K/uL (0.00-0.02); Immature Granulocytes % (auto) 0.3 %; Lymphocytes # (auto) 1.42 K/uL (1.2-3.4); Lymphocytes % (auto) 23.6 %; Mean Corpuscular Hemoglobin 26.1 pg (25-34); Mean Corpuscular Hgb Conc 31.2 g/dL (32-36); Mean Corpuscular Volume 83.7 fL (80-100); Mean Platelet Volume 10.6 fL (7.4-10.4); Monocytes # (auto) 0.49 K/uL (0.11-0.59); Monocytes % (auto) 8.2 %; Neutrophils # (auto) 3.94 K/uL (1.4-6.5); Neutrophils % (auto) 65.6 %; Platelet Count 380 K/uL (130-400); RDW Standard Deviation 49.3 fL (36.4-46.3); Red Blood Count 4.36 M/uL (4.2-5.4); White Blood Count 6.01 K/uL (4.8-10.8)
--- NOTE | 2020-12-25 14:19 | CT Scan Report ---
CT head/brain wo con CLINICAL HISTORY: 65 years-old Female with AMS. Acutely altered mental status TECHNIQUE: Multiple axial CT images of the head were obtained without contrast. A dose lowering tech nique was utilized adhering to the principles of ALARA. CT DOSE: 690.05 mGycm COMPARISON: Head CT 02/24/2017 FINDINGS: No acute intracranial hemorrhage, midline shift, intracranial mass, hydrocephalus, territorial ischem ia or abnormal extra-axial collection. Age-related involutional changes with ex vacuo ventriculomegal y. Progressively worsened white matter hypodensities suggestive of chronic microvascular ischemic dis ease. There is a hypodense 3.2 cm focus involving the right occipital lobe on image 12 series 2 with mild thinning of the adjacent posterior cortex on image 11 of series 2 which is new from prior. The calvarium is intact. The paranasal sinuses, mastoid air cells, and middle ear cavities are clear . IMPRESSION: 1. No acute intracranial hemorrhage, midline shift or acute territorial infarct. 2. 3.2 cm hypodense focus within the right occipital lobe is new from the 2017 comparison and is sugg estive of encephalomalacia from chronic insult. Vasogenic edema related to an underlying lesion is co nsidered less likely. Correlation with patient history and any prior imaging recommended. ACT 112: Negative or not required by law. The above report was generated using voice recognition software. It may contain grammatical, syntax o r spelling errors. Electronically signed by: Kvng Coffey M.D. 12/25/2020 2:18 PM
[2020-12-25 14:51] LABS: Albumin Globulin Ratio 0.5 (0.9-2); Albumin Level 2.7 gm/dl (3.4-5.0); BUN Creatinine Ratio 12.1 (10-20); Bilirubin,Total 0.4 mg/dl (0.2-1); Calcium 6.8 mg/dl (8.5-10.1); Creatinine Clr Calc Pharmacy 45.6 ml/min; Est GFR (African American) 77.7 ml/min; Est GFR (Non-African American) 67.1 ml/min; Globulin 5.1 gm/dl (2.5-4.0); Magnesium 0.7 mg/dl (1.8-2.4); Potassium 3.8 mmol/L (3.5-5.1); Total Protein 7.8 gm/dl (6.4-8.2); Troponin I 0.135 ng/ml (0-0.045)
[2020-12-25] MEDS ORDERED: ASPIRIN CHEW 324 MG PO STA (15:03)
[2020-12-25] MEDS: MAGNESIUM SULFATE / D5W 1 GM/100 ML BAG IV SCH ×2 (15:25→16:43)
--- NOTE | 2020-12-25 15:28 | Electrocardiogram Report ---
Test Reason : Blood Pressure : / mmHG Vent. Rate : 075 BPM Atrial Rate : 075 BPM P-R Int : 136 ms QRS Dur : 076 ms QT Int : 422 ms P-R-T Axes : 062 016 017 degrees QTc Int : 471 ms Poor data quality, interpretation may be adversely affected Normal sinus rhythm Normal ECG When compared with ECG of 24-FEB-2017 19:08, No significant change was found Confirmed by Arnaldo Connor ([id number]) on 12/25/2020 3:28:09 PM Referred By: REFERRED SELF Confirmed By:Arnaldo Connor
[2020-12-25] MEDS ORDERED: MAGNESIUM SULFATE 50% 4 GM in SODIUM CHLORIDE 0.9% 500 ML IV ONE (15:30)
--- NOTE | 2020-12-25 16:14 | History & Physical Report ---
Date of Service December 25, 2020 Assessment & Plan (1) Encephalopathy: Plan: CVA vs. continued cognitive decline vs. infectious - UA pending- no WBC, no urine symptoms - Acute confusion - CT of the head as above- MRI pending (2) Stroke: Plan: CVA old with no residuals- rule out CVA at this time - time last known normal unknown- not stroke alert or tPA candidate - lipids panel- was previously on statin - last filled Mar 22- she says she does not take- - continue asa- was recently held secondary to anemia - blood pressure and HR well controlled - Pending MRI results - +/- neurology consult - carotid Doppler- no stenosis, echocardiogram- March 07, 2017 normal - Tele 24 hours evaluate for afib (3) Hypomagnesemia: Plan: Mag 0.7 - 2 GM mag given in EMD - 4 GM in NS / 8 hour infusion while on floor - recheck in morning - ECG normal, Qtc normal - tingling in fingertips (4) Hypocalcemia: Plan: Corrects with albumin - iCA pending - Hold biphosphonate at this time - replete if iCA is low (5) Osteoarthritis of right hip: Plan: Chronic no acute needs (6) Osteopenia: Plan: As above (7) Vitamin B12 deficiency: Plan: She receives monthly b12 injections - normocytic mild hypochromic today HGB stable (8) Acid reflux: Plan: Continue omeprazole 40 mg daily History of Present Illness Primary Care Provider: Gold Kelly MD 65 YOF with past medical history of: Breast cancer DX 2008, s/p left sided mastectomy with reconstruction (finished anastrozole 10yrs), 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 Patient came to the EMD today via ambulance from her PCP office for concerns of acute confusion. The patient remembers comming to the hospital this morning to get a blood test, but she couldn't remember where the paperwork was, so she then went to her PCP office. The PCP note from today reports that she also did not remember where her car was and noted short-term memory loss. In the EMD the patient had routine labs drawn as well as CT scan of the head, she was given a dose of ASA. Her routine lab work revealed significant hypomagnesemia at 0.7, hypocalcemia, normal TSH. In regards to her low mag the patient endorses that she did have multiple bouts of watery lose stool for 2 days that resolved on its own yesterday and that she had a normal BM yesterday and this morning. Her CT scan of her head was interpreted as 3.2 cm hypodense focus within the right occipital lobe is new from the 2017 comparison and is suggestive of encephalomalacia from chronic insult. Vasogenic edema related to an underlying lesion is considered less likely. She has had a cognitive testing performed, which padmini was due to concern of some baseline decline. Agree the patient does exhibit some short term memory difficulties and has some difficulty formulating sentences in regards to what she did this morning. She had some mild delay in reading the NIH stroke cards and interpreting the picture. She did not have any other deficit or any coordination problems. Patient will be admitted to continue workup of her confusion. MRI of the brain for better evaluation of the above. Replace her Magnesium. Ordered iCA, and PO4. Patient has had her COVID vaccine and her COVID test is: NEGATIVE on admission Allergies Allergy/AdvReac Type Severity Reaction Status Date / Time adhesive AdvReac Mild HIVES Verified 12/25/20 15:06 Home Medications Medication Instructions Recorded Confirmed Type alendronate 70 mg tablet (Fosamax) 70 mg PO WK 01/08/19 12/25/20 History acetaminophen 500 mg tablet 1,000 mg PO TID PRN 09/23/19 12/25/20 History (Tylenol Extra Strength) omeprazole 40 mg capsule,delayed 40 mg PO QAM #30 cap 02/17/20 12/25/20 Rx release venlafaxine 75 mg tablet,extended 225 mg PO HS #270 tab 07/20/20 12/25/20 Rx release 24 hr metoprolol succinate 25 mg 25 mg PO QAM 12/25/20 12/25/20 History tablet,extended release 24 hr (Toprol XL) Past Med/Surg History Medical History Arthralgia of multiple sites Breast cancer (~03/2009) Dislocation of hip prosthesis History of fracture of right hip Surgical History H/O breast surgery H/O section H/O hysterectomy for benign disease H/O left mastectomy H/O: hysterectomy History of hip surgery dislocation of right hip prosthesis 09/2018 [facility] [place] History of revision of total hip arthroplasty History of tonsillectomy Hx of cholecystectomy Family History Mother Colon cancer Hypertension Osteoporosis Thyroid disorder Father , age 77 Coronary heart disease Stroke , Onset Age: 77 Daughter , age 30 Ovarian cancer Breast cancer , Onset Age: 30 Social History Smoking Status: Former smoker Hx Alcohol Use: Yes Alcohol Intake Frequency Comment: socially Hx Substance Use: No Preferred Language: Slovenian Visual Impairment: No Limitations Hearing Ability: Normal marital status: single Current Living Situation: Alone current occupational status: employed Feels Safe at Home: Yes Childhood Exposure to Second-Hand Smoke: No Physical Activity Frequency: 1-2 Times per Week Physical Activity Frequency Comment: Ireggular Seatbelt Use: always Sunscreen Use: Yes Review of Systems Review of Systems: REVIEW OF SYSTEMS: Constitutional: No fever, sweats or chills Eyes: No diplopia, no worsening or blurred vision ENT: (+) slowness in processing and speech, normal hearing, no trouble swallowi ng Respiratory: No cough, sputum, dyspnea at rest or on exertion Cardiovascular: No chest pain, tightness or palpitations Abdomen: No pain, nausea, vomiting, diarrhea or constipation Musculoskeletal: (+) right leg weakness and walks with cane, NO calf pain, swelling Neurologic: No weakness, numbness/tingling, or balance problems Psychiatric: No anxiety or depression Skin: No rash or itch Physical Exam Physical Exam: PHYSICAL EXAM: General: awake, alert, no apparent distress Head: Normocephalic, atraumatic ENT: PERRL, EOMI, no pharyngeal exudate, mucous membranes moist Neuro: NIHSS of 1, AAO x 3, speech clear and appropriate with some loss in fluency and delay, strength intact bilaterally 5/5, sensation intact and equal all extremities and dermatomes, no pronator drift Chest: equal rise and fall of the chest, no accessory muscle use, no heaves or thrills, Clear to auscultation, on room air, Cardiac: Regular rate and rhythm, telemetry reviewed, skin warm dry, cap refill <3 seconds, peripheral pulses +2 no JVD, no murmur, no edema GI: NABS x 4 quadrants, soft, nontender to palpation, no rebound, guarding or tenderness : Spontaneously voiding, no pain, no CVA tenderness, Extremities: (+) walks with cane, rt hip and lower leg weak weakness from hip replacement- no change from baseline Psych: Normal mood and affect Skin: no rash or erythema Results & Data Results & Data ([facility]) Vital Signs (Past 12 Hours) Vital Signs Temp Pulse Pulse Resp BP BP Pulse Ox 12/25/20 13:30 84 16 162/87 H 12/25/20 13:00 86 18 157/89 H 12/25/20 12:30 76 13 168/90 H 99 12/25/20 12:00 79 14 158/82 H 100 12/25/20 11:49 79 79 16 153/79 H 100 12/25/20 11:45 75 19 12/25/20 11:17 36.9 C 88 18 164/95 H 100 Laboratory Results Abnormal lab results 12/25/20 12/25/20 12/25/20 Range/Units 13:45 13:45 15:36 Hgb 11.4 L (12.0-16.0) g/dL Hct 36.5 L (37-47) % MCHC 31.2 L (32-36) g/dL RDW Std Deviation 49.3 H (36.4-46.3) fL RDW Coeff of Blaire 16.0 H (11.5-14.5) % MPV 10.6 H (7.4-10.4) fL Calcium 6.8 L (8.5-10.1) mg/dl Ionized Calcium 0.78 L (1.12-1.32) mmol/L Magnesium 0.7 L* (1.8-2.4) mg/dl AST 13 L (15-37) U/L ALT 9 L (12-78) U/L Troponin I 0.135 H* (0-0.045) ng/ml Albumin 2.7 L (3.4-5.0) gm/dl Globulin 5.1 H (2.5-4.0) gm/dl Albumin/Globulin Ratio 0.5 L (0.9-2) Diagnostic Findings Chest X-Ray 12/25/20 12:24 SINGLE VIEW CHEST CLINICAL HISTORY: Generalized weakness. FINDINGS: An AP, portable, upright chest radiograph is compared to study dated 07/23/2016. The cardiomediastinal silhouette is unremarkable. The lungs and pleural spaces are clear. No pneumothorax is seen. The skeletal structures are osteopenic. The bony thorax is grossly intact. Surgical clips project over the left lower chest on the left upper quadrant of the abdomen. IMPRESSION: No active disease in the chest. ACT 112: Negative or not required by law. Electronically signed by: Matt Blue M.D. 12/25/2020 1:[address] 12/25/20 12:24 CT head/brain wo con CLINICAL HISTORY: 65 years-old Female with AMS. Acutely altered mental status TECHNIQUE: Multiple axial CT images of the head were obtained without contrast. A dose lowering technique was utilized adhering to the principles of ALARA. CT DOSE: 690.05 mGycm COMPARISON: Head CT 02/24/2017 FINDINGS: No acute intracranial hemorrhage, midline shift, intracranial mass, hydrocephalus, territorial ischemia or abnormal extra-axial collection. Age- related involutional changes with ex vacuo ventriculomegaly. Progressively worsened white matter hypodensities suggestive of chronic microvascular ischemic disease. There is a hypodense 3.2 cm focus involving the right occipital lobe on image 12 series 2 with mild thinning of the adjacent posterior cortex on image 11 of series 2 which is new from prior. The calvarium is intact. The paranasal sinuses, mastoid air cells, and middle ear cavities are clear. IMPRESSION: 1. No acute intracranial hemorrhage, midline shift or acute territorial infarct. 2. 3.2 cm hypodense focus within the right occipital lobe is new from the 2017 comparison and is suggestive of encephalomalacia from chronic insult. Vasogenic edema related to an underlying lesion is considered less likely. Correlation with patient history and any prior imaging recommended. ACT 112: Negative or not required by law. The above report was generated using voice recognition software. It may contain grammatical, syntax or spelling errors. Electronically signed by: Kvng Coffey M.D. 12/25/2020 2:18 PM Medications Administered Magnesium Sulfate/Dextrose (Magnesium Sulfate / D5w) 1 gm in 100 mls @ 100 mls/hr IV Q1H TANVIR Stop: 12/25/20 17:02 Last Admin: 12/25/20 15:25 Dose: 100 mls/hr Documented by: [id number] Magnesium Sulfate 4 gm/ Sodium (Chloride) 508 mls @ 63.5 mls/hr IV NOW ONE Stop: 12/25/20 23:29 Last Admin: 12/25/20 15:50 Dose: 63.5 mls/hr Documented by: [id number] Discontinued Medications Aspirin (Aspirin Chew 324 Mg) 324 mg PO NOW STA Stop: 12/25/20 15:04 Last Admin: 12/25/20 15:25 Dose: 324 mg Documented by: [id number] Additional Comments: Normal sinus rhythm Normal ECG When compared with ECG of 24-FEB-2017 19:08, No significant change was found Code Status & VTE Plan Code Status CODE: FULL VTE: SCDs, ASA, Heparin Supervising Physician Co-Signing Physician Notes Patient was seen and examined independently I discussed the case with Johnny MARTINEZ I reviewed pertinent past medical social family history and also the plan of care and agree with the plan of care. Patient sent to ER for confusion and some word searching issues. Patient found to have profound hypomagnesemia and also hypocalcemia. Is evidence on imaging of her brain of encephalomalacia from previous stroke. Other acute findings were noted in the emergency department. She will have her magnesium replete MRI scan to evaluate for possible stroke as cause of her encephalopathy and also obtain urine analysis as she has had recent diarrhea at home. Physical exam is with nonfocal neurological findings although she does have some word searching difficulty and difficulty with speech more with word finding or using inappropriate words and slurring or garbled speech. We will start an aspirin and complete MRI scan urine culture magnesium repletion Any exceptions will be noted below PG Care Time/CCT Total # of Minutes Spent Total Time Spent with Patient: Total time spent is greater than 50% in coordination of care (as documented) at patient's floor/unit and/or counseling patient: Coding Level of Care Code 01020 Initial Inpt Care Lvl 3 Diagnoses Stroke I63.9 Hypomagnesemia E83.42 Hypocalcemia E83.51 Osteoarthritis of right hip M16.11 Osteopenia M85.80 Vitamin B12 deficiency E53.8 Encephalopathy G93.40 Acid reflux K21.9
[2020-12-25 17:05] LABS: Appearance Urine Clear (Clear); Bacteria Urine Automated Negative (Negative); Bilirubin Urine Negative (Negative); Blood Urine Negative (Negative); Color Urine Dark Yellow; Epithelial Cell Urine Auto >30 /lpf (0-5); Glucose Urine UA Negative (Negative); Ketones Urine Trace (Negative); Leukocyte Esterase Urine 1+ (Negative); Nitrite Urine Negative (Negative); Protein Urine Trace (Negative); RBC Urine Automated 0-4 /hpf (0-4); Specific Gravity Urine 1.018 (1.000-1.030); Urobilinogen Urine Negative (Negative); pH Urine 6.5 (4.5-7.5)
--- NOTE | 2020-12-25 18:45 | Magnetic Resonance Report ---
MRI OF THE BRAIN WITHOUT IV CONTRAST CLINICAL HISTORY: Change in mental status. COMPARISON STUDY: CT of the brain performed the same day 12/25/2020. TECHNIQUE: MRI of the brain was performed utilizing various T1 and T2-weighted sequences in the axial , sagittal, and coronal planes. IV contrast was not administered for this examination. FINDINGS: Brain parenchyma: There is age-related involutional change noting moderate confluent subcortical and periventricular microangiopathic disease. There is a focus of right occipital encephalomalacia. There is no hemorrhage or mass effect. There is no restricted diffusion typical for acute ischemia. Allan-w manuel matter differentiation is preserved. No extra-axial fluid collection is seen. The cerebellar ton sils are normal in configuration. Ventricles, sulci, and cisterns: Prominent secondary to involutional change. Pituitary and sella: Unremarkable. Intracranial vasculature: Normal flow voids are maintained at the skull base. Orbits: The bony orbits are grossly intact. Orbital contents are normal in appearance noting bilatera l ocular lens implants. Sinuses and mastoids: Clear. Calvarium: Unremarkable. Cervical cord: Partially visualized cervical spinal cord is normal in morphology and signal intensity . IMPRESSION: 1. Senescent changes as above with no acute intracranial abnormality. 2. A focus of right occipital encephalomalacia is consistent with a remote insult. ACT 112: Negative or not required by law. Electronically signed by: Matt Blue M.D. 12/25/2020 6:44 PM
[2020-12-25] MEDS ORDERED: ACETAMINOPHEN 325 MG TAB PO PRN (19:32)
[2020-12-25] MEDS ORDERED: ONDANSETRON INJ 2 MG/ML 2 ML VIAL IV PRN (19:32)
[2020-12-25] MEDS ORDERED: PHARMACIST DISCHARGE MED REC CONSULT PRN (19:32)
[2020-12-25] MEDS: HEPARIN SOD 5,000 UNIT/0.5 ML VIAL SQ SCH (22:48)
[2020-12-25] MEDS: VENLAFAXINE HCL XR 75 MG CAPXR PO SCH (22:48)
[2020-12-26] MEDS ORDERED: CALCIUM GLUCONATE 10% 2,000 MG in SODIUM CHLORIDE 0.9% 50 ML IV ONE ×2 (01:00→12:15)
[2020-12-26 08:00] LABS: Eosinophils % (auto) 1.9 %; Hematocrit (blood only) 36.2 % (37-47); Hemoglobin 11.2 g/dL (12.0-16.0); Immature Granulocytes # (auto) 0.02 K/uL (0.00-0.02); Immature Granulocytes % (auto) 0.4 %; Lymphocytes # (auto) 0.79 K/uL (1.2-3.4); Lymphocytes % (auto) 14.6 %; Mean Corpuscular Hgb Conc 30.9 g/dL (32-36); Mean Corpuscular Volume 84.2 fL (80-100); Mean Platelet Volume 10.8 fL (7.4-10.4); Monocytes # (auto) 0.48 K/uL (0.11-0.59); Monocytes % (auto) 8.9 %; Neutrophils # (auto) 4.01 K/uL (1.4-6.5); Neutrophils % (auto) 74.2 %; Platelet Count 351 K/uL (130-400); RDW Coefficient of Variation 16.1 % (11.5-14.5); RDW Standard Deviation 49.6 fL (36.4-46.3)
[2020-12-26] MEDS: HEPARIN SOD 5,000 UNIT/0.5 ML VIAL SQ SCH ×2 (08:15→20:03)
[2020-12-26] MEDS: METOPROLOL SUCC 25MG EXT REL TAB PO SCH (08:15)
[2020-12-26] MEDS: PANTOprazole 40 MG TAB PO SCH (08:15)
[2020-12-26] MEDS: ASPIRIN 81 MG ECTAB PO SCH (08:15)
[2020-12-26 08:40] LABS: BUN Creatinine Ratio 12.6 (10-20); Calcium 7.8 mg/dl (8.5-10.1); Creatinine Clr Calc Pharmacy 60.6 ml/min; Est GFR (African American) 105.4 ml/min; Magnesium 3.4 mg/dl (1.8-2.4); Potassium 3.9 mmol/L (3.5-5.1)
[2020-12-26 10:08] LABS: Estimated Average Glucose 120 mg/dl; Hemoglobin A1C 5.8 % (4.5-5.6)
[2020-12-26] MEDS: ATORVASTATIN 10 MG TAB PO SCH (10:39)
--- NOTE | 2020-12-26 12:16 | Hospitalist Progress Note ---
Date of Service December 26, 2020 Assessment & Plan (1) Encephalopathy: Plan: electrolyte derangement (delirium) vs. continued cognitive decline vs. infectious - UA completed- no WBC, no urine symptoms, Urine with 1+ LE, budding yeast, no bacteria- resend urine in morning - Acute confusion - CT of the head as above - MRI no acute CVA or changes - Likely related to severe magnesium level (2) Stroke: Plan: CVA old with no residuals- rule out CVA at this time- ruled out - time last known normal unknown- not stroke alert or tPA candidate - lipids panel- was previously on statin - last filled Mar 22- she says she does not take- - continue asa- was recently held secondary to anemia - blood pressure and HR well controlled - Pending MRI results -- negative- follow cognitive status for one more day, coordinate discharge with family/friend for tomorrow likely - carotid Doppler- no stenosis, echocardiogram- March 07, 2017 normal - Tele 24 hours evaluate for afib (3) Hypomagnesemia: Plan: Mag 0.7---> following repletion - 2 GM mag given in EMD - 4 GM in NS / 8 hour infusion completed - recheck in morning - ECG normal, Qtc normal - tingling in fingertips- resolved ? cause of stool loss with diarrhea for 2 days and PPI - other electrolytes not adversly effected - Follow BMP in the morning (4) Hypocalcemia: Plan: Corrects with albumin - iCA remains low today following 2GM yesterday- will replete with another 2GM today - Hold biphosphonate at this time (5) Osteoarthritis of right hip: Plan: Chronic no acute needs (6) Osteopenia: Plan: As above (7) Vitamin B12 deficiency: Plan: She receives monthly b12 injections - normocytic mild hypochromic today HGB stable (8) Acid reflux: Plan: Continue omeprazole 40 mg daily Admission and Anticipated Discharge Date Admission Date: December 25, 2020 Subjective Patient up sitting in her bedside chair, finishing her morning evaluation with OT. Patient appears more calm today and her thoughts are more fluid in nature, her reading and processing of information also appear to have improved. The patient is able to better recall her events from yesterday as well as now noting that she could just not figure out what was going on and was all nervous. She states she feels more like herself and that her paraesthesias in her fingers are improved as well. Her imaging was reviewed from yesterday with her, noting no acute CVA or other changes on her MRI. We reviewed her cholesterol numbers and will place her back on her Atorvastatin and Aspirin daily. Will follow PT evaluation today and most likely will be ready for discharge tomorrow. Would like to follow her cognitive function through an entire day. Her magnesium is improved to >3.0 today and her iCA still remains slightly low. Will replete with 2GM CaGluc. Transfer from telemetry today to medical floor. Review of Systems Review of Systems: REVIEW OF SYSTEMS: Constitutional: No fever, sweats or chills Eyes: No diplopia, no worsening or blurred vision ENT: normal hearing, no trouble swallowing Neruo: Feels improved today and as though her "thoughts are better put together" Respiratory: No cough, sputum, dyspnea at rest or on exertion Cardiovascular: No chest pain, tightness or palpitations Abdomen: No pain, nausea, vomiting, diarrhea or constipation Musculoskeletal: (+) right leg weakness and walks with cane, NO calf pain, swelling Neurologic: No weakness, numbness/tingling, or balance problems Psychiatric: No anxiety or depression Skin: No rash or itch Physical Exam Physical Exam: PHYSICAL EXAM: General: awake, alert, no apparent distress Head: Normocephalic, atraumatic ENT: PERRL, EOMI, no pharyngeal exudate, mucous membranes moist Neuro: NIHSS of 0 today, AAO x 3, speech clear and appropriate with loss in fluency and delay resolving, strength intact bilaterally 5/5, sensation intact and equal all extremities and dermatomes, no pronator drift, did very well with OT Chest: equal rise and fall of the chest, no accessory muscle use, no heaves or thrills, Clear to auscultation, on room air, Cardiac: Regular rate and rhythm, telemetry reviewed, skin warm dry, cap refill <3 seconds, peripheral pulses +2 no JVD, no murmur, no edema GI: NABS x 4 quadrants, soft, nontender to palpation, no rebound, guarding or tenderness : Spontaneously voiding, no pain, no CVA tenderness, Extremities: (+) walks with cane, rt hip and lower leg weak weakness from hip replacement- no change from baseline Psych: Normal mood and affect improved Skin: no rash or erythema Results & Data Results & Data ([facility]) Vital Signs (Past 12 Hours) Vital Signs Temp Pulse Pulse Resp BP Pulse Ox 12/26/20 11:27 36.4 C L 81 18 148/77 H 100 12/26/20 08:56 88 12/26/20 07:09 36.6 C 89 16 155/82 H 98 12/26/20 04:15 36.8 C 88 20 148/77 H 98 12/26/20 00:46 82 12/26/20 00:21 36.6 C 86 20 146/80 H 99 Laboratory Results Abnormal lab results 12/25/20 12/25/20 12/25/20 Range/Units 13:45 13:45 15:36 Hgb 11.4 L (12.0-16.0) g/dL Hct 36.5 L (37-47) % MCHC 31.2 L (32-36) g/dL RDW Std Deviation 49.3 H (36.4-46.3) fL RDW Coeff of Blaire 16.0 H (11.5-14.5) % MPV 10.6 H (7.4-10.4) fL Lymph # (Auto) (1.2-3.4) K/uL Hemoglobin A1c (4.5-5.6) % Calcium 6.8 L (8.5-10.1) mg/dl Ionized Calcium 0.78 L (1.12-1.32) mmol/L Magnesium 0.7 L* (1.8-2.4) mg/dl AST 13 L (15-37) U/L ALT 9 L (12-78) U/L Troponin I 0.135 H* (0-0.045) ng/ml Albumin 2.7 L (3.4-5.0) gm/dl Globulin 5.1 H (2.5-4.0) gm/dl Albumin/Globulin Ratio 0.5 L (0.9-2) Triglycerides (0-150) mg/dl Cholesterol (0-200) mg/dl Urine Protein (Negative) Urine Ketones (Negative) Ur Leukocyte Esterase (Negative) U Hyaline Cast (Auto) (0-5) /lpf U Epithel Cells (Auto) (0-5) /lpf Urine Yeast (None Prsent) 12/25/20 12/25/2021 Range/Units 16:53 19:48 01:51 Hgb (12.0-16.0) g/dL Hct (37-47) % MCHC (32-36) g/dL RDW Std Deviation (36.4-46.3) fL RDW Coeff of Blaire (11.5-14.5) % MPV (7.4-10.4) fL Lymph # (Auto) (1.2-3.4) K/uL Hemoglobin A1c (4.5-5.6) % Calcium (8.5-10.1) mg/dl Ionized Calcium (1.12-1.32) mmol/L Magnesium (1.8-2.4) mg/dl AST (15-37) U/L ALT (12-78) U/L Troponin I 0.165 H* 0.175 H* (0-0.045) ng/ml Albumin (3.4-5.0) gm/dl Globulin (2.5-4.0) gm/dl Albumin/Globulin Ratio (0.9-2) Triglycerides (0-150) mg/dl Cholesterol (0-200) mg/dl Urine Protein Trace H (Negative) Urine Ketones Trace H (Negative) Ur Leukocyte Esterase 1+ H (Negative) U Hyaline Cast (Auto) 5-10 H (0-5) /lpf U Epithel Cells (Auto) >30 H (0-5) /lpf Urine Yeast Budding A (None Prsent) 12/26/20 12/26/20 12/26/20 Range/Units 07:33 07:33 07:33 Hgb 11.2 L (12.0-16.0) g/dL Hct 36.2 L (37-47) % MCHC 30.9 L (32-36) g/dL RDW Std Deviation 49.6 H (36.4-46.3) fL RDW Coeff of Blaire 16.1 H (11.5-14.5) % MPV 10.8 H (7.4-10.4) fL Lymph # (Auto) 0.79 L (1.2-3.4) K/uL Hemoglobin A1c 5.8 H (4.5-5.6) % Calcium 7.8 L (8.5-10.1) mg/dl Ionized Calcium (1.12-1.32) mmol/L Magnesium 3.4 H (1.8-2.4) mg/dl AST (15-37) U/L ALT (12-78) U/L Troponin I (0-0.045) ng/ml Albumin (3.4-5.0) gm/dl Globulin (2.5-4.0) gm/dl Albumin/Globulin Ratio (0.9-2) Triglycerides 153 H (0-150) mg/dl Cholesterol 213 H (0-200) mg/dl Urine Protein (Negative) Urine Ketones (Negative) Ur Leukocyte Esterase (Negative) U Hyaline Cast (Auto) (0-5) /lpf U Epithel Cells (Auto) (0-5) /lpf Urine Yeast (None Prsent) 12/26/20 12/26/20 Range/Units 07:33 11:05 Hgb (12.0-16.0) g/dL Hct (37-47) % MCHC (32-36) g/dL RDW Std Deviation (36.4-46.3) fL RDW Coeff of Blaire (11.5-14.5) % MPV (7.4-10.4) fL Lymph # (Auto) (1.2-3.4) K/uL Hemoglobin A1c (4.5-5.6) % Calcium (8.5-10.1) mg/dl Ionized Calcium 0.95 L (1.12-1.32) mmol/L Magnesium (1.8-2.4) mg/dl AST (15-37) U/L ALT (12-78) U/L Troponin I 0.170 H* (0-0.045) ng/ml Albumin (3.4-5.0) gm/dl Globulin (2.5-4.0) gm/dl Albumin/Globulin Ratio (0.9-2) Triglycerides (0-150) mg/dl Cholesterol (0-200) mg/dl Urine Protein (Negative) Urine Ketones (Negative) Ur Leukocyte Esterase (Negative) U Hyaline Cast (Auto) (0-5) /lpf U Epithel Cells (Auto) (0-5) /lpf Urine Yeast (None Prsent) Diagnostic Findings Chest X-Ray 12/25/20 12:24 SINGLE VIEW CHEST CLINICAL HISTORY: Generalized weakness. FINDINGS: An AP, portable, upright chest radiograph is compared to study dated 07/23/2016. The cardiomediastinal silhouette is unremarkable. The lungs and pleu ral spaces are clear. No pneumothorax is seen. The skeletal structures are osteopenic. The bony thorax is grossly intact. Surgical clips project over the left lower chest on the left upper quadrant of the abdomen. IMPRESSION: No active disease in the chest. ACT 112: Negative or not required by law. Electronically signed by: Matt Blue M.D. 12/25/2020 1:[address] 12/25/20 12:24 CT head/brain wo con CLINICAL HISTORY: 65 years-old Female with AMS. Acutely altered mental status TECHNIQUE: Multiple axial CT images of the head were obtained without contrast. A dose lowering technique was utilized adhering to the principles of ALARA. CT DOSE: 690.05 mGycm COMPARISON: Head CT 02/24/2017 FINDINGS: No acute intracranial hemorrhage, midline shift, intracranial mass, hydrocephalus, territorial ischemia or abnormal extra-axial collection. Age- related involutional changes with ex vacuo ventriculomegaly. Progressively worsened white matter hypodensities suggestive of chronic microvascular ischemic disease. There is a hypodense 3.2 cm focus involving the right occipital lobe on image 12 series 2 with mild thinning of the adjacent posterior cortex on image 11 of series 2 which is new from prior. The calvarium is intact. The paranasal sinuses, mastoid air cells, and middle ear cavities are clear. IMPRESSION: 1. No acute intracranial hemorrhage, midline shift or acute territorial infarct. 2. 3.2 cm hypodense focus within the right occipital lobe is new from the 2017 comparison and is suggestive of encephalomalacia from chronic insult. Vasogenic edema related to an underlying lesion is considered less likely. Correlation with patient history and any prior imaging recommended. ACT 112: Negative or not required by law. The above report was generated using voice recognition software. It may contain grammatical, syntax or spelling errors. Electronically signed by: Kvng Coffey M.D. 12/25/2020 2:18 PM Brain MRI 12/25/20 15:40 MRI OF THE BRAIN WITHOUT IV CONTRAST CLINICAL HISTORY: Change in mental status. COMPARISON STUDY: CT of the brain performed the same day 12/25/2020. TECHNIQUE: MRI of the brain was performed utilizing various T1 and T2-weighted sequences in the axial, sagittal, and coronal planes. IV contrast was not administered for this examination. FINDINGS: Brain parenchyma: There is age-related involutional change noting moderate confluent subcortical and periventricular microangiopathic disease. There is a focus of right occipital encephalomalacia. There is no hemorrhage or mass effect. There is no restricted diffusion typical for acute ischemia. Allan-white matter differentiation is preserved. No extra-axial fluid collection is seen. The cerebellar tonsils are normal in configuration. Ventricles, sulci, and cisterns: Prominent secondary to involutional change. Pituitary and sella: Unremarkable. Intracranial vasculature: Normal flow voids are maintained at the skull base. Orbits: The bony orbits are grossly intact. Orbital contents are normal in appearance noting bilateral ocular lens implants. Sinuses and mastoids: Clear. Calvarium: Unremarkable. Cervical cord: Partially visualized cervical spinal cord is normal in morphology and signal intensity. IMPRESSION: 1. Senescent changes as above with no acute intracranial abnormality. 2. A focus of right occipital encephalomalacia is consistent with a remote insult. ACT 112: Negative or not required by law. Electronically signed by: Matt Blue M.D. 12/25/2020 6:44 PM Medications Administered Home Medications alendronate 70 mg tablet (Fosamax) 70 mg PO WK 01/08/19 [History Confirmed 12/25/20] acetaminophen 500 mg tablet (Tylenol Extra Strength) 1,000 mg PO TID PRN 09/23/19 [History Confirmed 12/25/20] omeprazole 40 mg capsule,delayed release 40 mg PO QAM #30 cap 02/17/20 [Rx Confirmed 12/25/20] venlafaxine 75 mg tablet,extended release 24 hr 225 mg PO HS #270 tab 07/20/20 [Rx Confirmed 12/25/20] metoprolol succinate 25 mg tablet,extended release 24 hr (Toprol XL) 25 mg PO QAM 12/25/20 [History Confirmed 12/25/20] Active Medications Acetaminophen (Acetaminophen 325 Mg Tab) 650 mg PO Q4H PRN PRN Reason: Pain or Fever Stop: 01/24/21 19:31 Aspirin (Aspirin 81 Mg Ectab) 81 mg PO QAM TANVIR Stop: 01/25/21 08:59 Last Admin: 12/26/20 08:15 Dose: 81 mg Documented by: Atorvastatin Calcium ([facility]atin 10 Mg Tab) [facility] Stop: 01/25/21 10:14 Last Admin: 12/26/20 10:39 Dose: 10 mg Documented by: Heparin Sodium (Porcine) (Heparin Sod 5,000 Unit/0.5 Ml Vial) 5,000 units SQ Q12 TANVIR Stop: 01/24/21 20:59 Last Admin: 12/26/20 08:15 Dose: 5,000 units Documented by: Calcium Gluconate 2,000 mg/ (Sodium Chloride) 70 mls @ 240 mls/hr IV NOW ONE Stop: 12/26/20 12:32 Metoprolol Succinate (Metoprolol Succ 25mg Ext Rel Tab) 25 mg PO [facility] Stop: 01/25/21 08:59 Last Admin: 12/26/20 08:15 Dose: 25 mg Documented by: Miscellaneous Information (Pharmacist Discharge Med Rec Consult) 1 ea N/A UD PRN PRN Reason: Consult Stop: 01/24/21 19:31 Ondansetron HCl (Ondansetron Inj 2 Mg/Ml 2 Ml Vial) 4 mg IV Q6H PRN PRN Reason: Nausea Stop: 01/24/21 19:31 Pantoprazole Sodium (Pantoprazole 40 Mg Tab) 40 mg PO [facility] Stop: 01/25/21 08:59 Last Admin: 12/26/20 08:15 Dose: 40 mg Documented by: Venlafaxine HCl (Venlafaxine Hcl Xr 75 Mg Capxr) 225 [facility] Stop: 01/24/21 20:59 Last Admin: 12/25/20 22:48 Dose: 225 mg Documented by: Aspirin (Aspirin 81 Mg Ectab) 81 mg PO [facility] Stop: 01/25/21 08:59 Last Admin: 12/26/20 08:15 Dose: 81 mg Documented by: [id number] Atorvastatin Calcium (Atorvastatin 10 Mg Tab) 10 mg PO [facility] Stop: 01/25/21 10:14 Last Admin: 12/26/20 10:39 Dose: 10 mg Documented by: [id number] Heparin Sodium (Porcine) (Heparin Sod 5,000 Unit/0.5 Ml Vial) 5,000 units SQ Q12 [facility] Stop: 01/24/21 20:59 Last Admin: 12/26/20 08:15 Dose: 5,000 units Documented by: [id number] Admin: 12/25/20 22:48 Dose: 5,000 units Documented by: [id number] Metoprolol Succinate (Metoprolol Succ 25mg Ext Rel Tab) 25 mg PO QAM TANVIR Stop: 01/25/21 08:59 Last Admin: 12/26/20 08:15 Dose: 25 mg Documented by: [id number] Pantoprazole Sodium (Pantoprazole 40 Mg Tab) 40 mg PO QAM TANVIR Stop: 01/25/21 08:59 Last Admin: 12/26/20 08:15 Dose: 40 mg Documented by: [id number] Venlafaxine HCl (Venlafaxine Hcl Xr 75 Mg Capxr) 225 mg PO TANVIR Stop: 01/24/21 20:59 Last Admin: 12/25/20 22:48 Dose: 225 mg Documented by: [id number] Discontinued Medications Aspirin (Aspirin Chew 324 Mg) 324 mg PO NOW STA Stop: 12/25/20 15:04 Last Admin: 12/25/20 15:25 Dose: 324 mg Documented by: [id number] Magnesium Sulfate/Dextrose (Magnesium Sulfate / D5w) 1 gm in 100 mls @ 100 mls/hr IV Q1H TANVIR Stop: 12/25/20 17:02 Last Infusion: 12/25/20 17:58 Dose: 0 mls/hr Documented by: [id number] Admin: 12/25/20 16:43 Dose: 100 mls/hr Documented by: [id number] Infusion: 12/25/20 16:42 Dose: 0 mls/hr Documented by: [id number] Admin: 12/25/20 15:25 Dose: 100 mls/hr Documented by: [id number] Magnesium Sulfate 4 gm/ Sodium (Chloride) 508 mls @ 63.5 mls/hr IV NOW ONE Stop: 12/25/20 23:29 Last Infusion: 12/26/20 06:08 Dose: 63.5 mls/hr Documented by: [id number] Infusion: 12/25/20 21:06 Dose: 63.5 mls/hr Documented by: [id number] Infusion: 12/25/20 17:58 Dose: 0 mls/hr Documented by: [id number] Admin: 12/25/20 15:50 Dose: 63.5 mls/hr Documented by: [id number] Calcium Gluconate 2,000 mg/ (Sodium Chloride) 70 mls @ 140 mls/hr IV TODAY@0100 ONE Stop: 12/26/20 01:29 Last Infusion: 12/26/20 06:59 Dose: 0 mls/hr Documented by: [id number] Admin: 12/26/20 06:07 Dose: 140 mls/hr Documented by: [id number] PG Care Time/CCT Total # of Minutes Spent Total Time Spent with Patient: Total time spent is greater than 50% in coordination of care (as documented) at patient's floor/unit and/or counseling patient: Coding Level of Care Code 73897 Subseq Hosp Care Lvl 3 Diagnoses Encephalopathy G93.40 Stroke I63.9 Hypomagnesemia E83.42 Hypocalcemia E83.51 Osteoarthritis of right hip M16.11 Osteopenia M85.80 Vitamin B12 deficiency E53.8 Acid reflux K21.9
[2020-12-26 14:31] LABS: Appearance Urine Clear (Clear); Bilirubin Urine Negative (Negative); Blood Urine Negative (Negative); Color Urine Yellow; Glucose Urine UA Negative (Negative); Ketones Urine Negative (Negative); Leukocyte Esterase Urine Negative (Negative); Nitrite Urine Negative (Negative); Protein Urine Negative (Negative); Specific Gravity Urine 1.011 (1.000-1.030); Urobilinogen Urine Negative (Negative); pH Urine 7.5 (4.5-7.5)
[2020-12-26] MEDS: VENLAFAXINE HCL XR 75 MG CAPXR PO SCH (20:03)
[2020-12-27 06:24] LABS: Eosinophils # (auto) 0.14 K/uL (0-0.5); Eosinophils % (auto) 2.5 %; Hematocrit (blood only) 34.2 % (37-47); Hemoglobin 10.7 g/dL (12.0-16.0); Immature Granulocytes # (auto) 0.03 K/uL (0.00-0.02); Immature Granulocytes % (auto) 0.5 %; Lymphocytes # (auto) 1.21 K/uL (1.2-3.4); Lymphocytes % (auto) 21.4 %; Mean Corpuscular Hemoglobin 25.5 pg (25-34); Mean Corpuscular Hgb Conc 31.3 g/dL (32-36); Mean Corpuscular Volume 81.4 fL (80-100); Mean Platelet Volume 10.4 fL (7.4-10.4); Monocytes # (auto) 0.59 K/uL (0.11-0.59); Monocytes % (auto) 10.4 %; Neutrophils # (auto) 3.69 K/uL (1.4-6.5); Neutrophils % (auto) 65.2 %; Platelet Count 329 K/uL (130-400); RDW Coefficient of Variation 15.9 % (11.5-14.5); White Blood Count 5.66 K/uL (4.8-10.8)
[2020-12-27 07:01] LABS: Calcium 8.3 mg/dl (8.5-10.1); Creatinine Clr Calc Pharmacy 50.4 ml/min; Est GFR (African American) 85.8 ml/min
--- NOTE | 2020-12-27 07:08 | Electrocardiogram Report ---
Test Reason : Blood Pressure : / mmHG Vent. Rate : 087 BPM Atrial Rate : 087 BPM P-R Int : 138 ms QRS Dur : 076 ms QT Int : 410 ms P-R-T Axes : 062 038 022 degrees QTc Int : 493 ms Poor data quality, interpretation may be adversely affected Normal sinus rhythm Normal ECG When compared with ECG of 25-DEC-2020 11:47, No significant change was found Confirmed by Fermin Dai ([id number]) on 12/27/2020 7:08:23 AM Referred By: REFERRED SELF Confirmed By:Fermin Dai
[2020-12-27] MEDS: METOPROLOL SUCC 25MG EXT REL TAB PO SCH (07:42)
[2020-12-27] MEDS: HEPARIN SOD 5,000 UNIT/0.5 ML VIAL SQ SCH (07:42)
[2020-12-27] MEDS: PANTOprazole 40 MG TAB PO SCH (07:42)
[2020-12-27] MEDS: ATORVASTATIN 10 MG TAB PO SCH (07:42)
[2020-12-27] MEDS: ASPIRIN 81 MG ECTAB PO SCH (07:42)
[2020-12-27] MEDS ORDERED: STROKE PATIENT DISCHARGE STA (10:45)
--- NOTE | 2020-12-27 11:05 | Discharge Summary ---
Date of Service December 27, 2020 Admission HPI Per Admitting Provider 65 YOF with past medical history of: Breast cancer DX 2008, s/p left sided mastectomy with reconstruction (finished anastrozole 10yrs), 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 Patient came to the EMD today via ambulance from her PCP office for concerns of acute confusion. The patient remembers comming to the hospital this morning to get a blood test, but she couldn't remember where the paperwork was, so she then went to her PCP office. The PCP note from today reports that she also did not remember where her car was and noted short-term memory loss. In the EMD the patient had routine labs drawn as well as CT scan of the head, she was given a dose of ASA. Her routine lab work revealed significant hypomagnesemia at 0.7, hypocalcemia, normal TSH. In regards to her low mag the patient endorses that she did have multiple bouts of watery lose stool for 2 days that resolved on its own yesterday and that she had a normal BM yesterday and this morning. Her CT scan of her head was interpreted as 3.2 cm hypodense focus within the right occipital lobe is new from the 2017 comparison and is suggestive of encephalomalacia from chronic insult. Vasogenic edema related to an underlying lesion is considered less likely. She has had a cognitive testing performed, which padmini was due to concern of some baseline decline. Agree the patient does exhibit some short term memory difficulties and has some difficulty formulating sentences in regards to what she did this morning. She had some mild delay in reading the NIH stroke cards and interpreting the picture. She did not have any other deficit or any coordination problems. Patient will be admitted to continue workup of her confusion. MRI of the brain for better evaluation of the above. Replace her Magnesium. Ordered iCA, and PO4. Patient has had her COVID vaccine and her COVID test is: NEGATIVE on admission Principal Diagnosis encephalopathy, hyomagnesemia Discharge Exam PHYSICAL EXAM: General: awake, alert, no apparent distress, she is dressed and well groomed this morning Head: Normocephalic, atraumatic ENT: PERRL, EOMI, no pharyngeal exudate, mucous membranes moist Neuro: AAO x 3, speech clear and appropriate, remains with short term memory difficulty, strength intact bilaterally 5/5, sensation intact and equal all extremities and dermatomes, no pronator drift Chest: equal rise and fall of the chest, no accessory muscle use, no heaves or thrills, Clear to auscultation, on room air, Cardiac: Regular rate and rhythm, skin warm dry, cap refill <3 seconds, peripheral pulses +2 no JVD, no murmur, no JVD, no edema GI: NABS x 4 quadrants, soft, nontender to palpation, no rebound, guarding or tenderness : Spontaneously voiding, no pain, no CVA tenderness, Extremities: Normal inspection, no peripheral edema or erythema, calfs nontender to palpation Psych: Normal mood and affect Skin: no rash or erythema Discharge Data Allergies Allergy/AdvReac Type Severity Reaction Status Date / Time adhesive AdvReac Mild HIVES Verified 12/25/20 15:06 Consultations 12/25/20 15:18 ED Decision to Admit Stat 12/26/20 11:19 Consult YAMILEXG photostat operator helper Routine 12/27/20 10:28 Consult YAMILEXG photostat operator helper Routine Procedures Performed NONE Ordered Studies 12/25/20 12:24 CT head/brain wo con Stat 12/25/20 15:40 MR brain wo con Routine Hospital Course (1) Encephalopathy: electrolyte derangement (delirium) vs. continued cognitive decline - UA completed- no WBC, no urine symptoms, Urine with 1+ LE, budding yeast, no bacteria- resend urine in morning - Acute confusion - CT of the head as above - MRI no acute CVA or changes - Likely related to severe magnesium level and her baseline cognitive (2) Stroke: CVA old with no residuals- rule out CVA at this time- ruled out for acute CVA - time last known normal unknown- not stroke alert or tPA candidate - lipids panel- was previously on statin - last filled Mar 22- she says she does not take- - continue asa- was recently held secondary to anemia - blood pressure and HR well controlled - Pending MRI results -- negative- follow cognitive status for one more day, coordinate discharge with family/friend for tomorrow likely - carotid Doppler- no stenosis, echocardiogram- March 07, 2017 normal - Tele 24 hours evaluate for afib (3) Hypomagnesemia: Mag 0.7---> following repletion - 2 GM mag given in EMD - 4 GM in NS / 8 hour infusion completed - recheck in morning - ECG normal, Qtc normal - tingling in fingertips- resolved ? cause of stool loss with diarrhea for 2 days and PPI - other electrolytes not adversely effected - Follow BMP with ionized calcium and phos prior to PCP visit (4) Hypocalcemia: Corrects with albumin - iCA remains low today following 2GM yesterday- will replete with another 2GM today - Hold biphosphonate at this time (5) Osteoarthritis of right hip: Chronic no acute needs (6) Osteopenia: As above (7) Vitamin B12 deficiency: She receives monthly b12 injections - normocytic mild hypochromic today HGB stable (8) Acid reflux: Continue omeprazole 40 mg daily Total Time Total Time Spent Total Time Spent (In Minutes): 30 min Discharge Plan Discharge Items Patient Disposition: Home - Self-Care Reason For Visit: ENCEPHALOPATHY VS CVA Discharge Diagnosis: encephalopathy, hypomagmanesmia, hypocalcemia Condition on Discharge: Good Activity: Resume your previous activity Non-emergency contact: Primary Care Provider Call non-emergency contact if: you have any medication questions and your symptoms worsen Follow-up/Referrals: Gold Kelly MD [Primary Care Provider] - 01/05/21 1:30 pm Diet: Regular Ambulatory Orders: Basic Metabolic Panel (Routine) Timeframe: 1 Week Location: Determined by Patient Ordered By: Jason Heller Ionized Calcium (Routine) Timeframe: 1 Week Location: Determined by Patient Ordered By: Jason Heller Magnesium (Routine) Timeframe: 1 Week Location: Determined by Patient Ordered By: Jason Heller Addtl Attending Provider Instructions: Continue eating well rounded diet, consider starting Multi-vitamin daily. Pending Studies at Discharge: Yes Studies:: Would like you to get laboratory draw 24 hours prior to your PCP appointment this week - Basic metabolic panel, Magnesium, ionized calcium, phosphorous level Stand-Alone Forms: [employer], Smoking Cessation Medications and DC Order Prescriptions: New venlafaxine 75 mg Capsule,Extended Release 24hr 225 mg PO HS Qty: 30 RF: 0 atorvastatin 10 mg Tablet 10 mg PO QAM Qty: 30 RF: 0 aspirin 81 mg Tablet,Delayed Release (Dr/Ec) 81 mg PO QAM Qty: 30 RF: 0 metoprolol succinate 25 mg Tablet Extended Release 24 Hr 25 mg PO QAM Qty: 30 RF: 0 Pharmacist Discharge Consult [Pharmacist Discharge Med Rec Consult] Liters per Minute 1 dose Not Applicable UD MDD 1 PRN (Reason: discharge) Qty: 1 RF: 1 Continued omeprazole 40 mg capsule,delayed release(DR/EC) 40 mg PO QAM Qty: 30 RF: 5 alendronate [Fosamax] 70 mg tablet 70 mg PO WK Qty: 0 RF: 0 Discontinued venlafaxine 75 mg tablet extended release 24hr 225 mg PO HS Qty: 270 RF: 3 metoprolol succinate [Toprol XL] 25 mg tablet extended release 24 hr 25 mg PO QAM RF: 0 No Action acetaminophen [Tylenol Extra Strength] 500 mg tablet 1,000 mg PO TID PRN (Reason: Fever Or Pain) RF: 0 Discharge Orders: Discharge Order (Routine); Ordered 12/27/20 Ordered By: Jason Heller Admission Data Admit Date/Time: 12/25/20 16:27 Attending Provider: Jourdan Olea Admit Provider: Jourdan Olea Primary Care Provider: Gold Kelly V. Other Providers: Jourdan Olea Coding Level of Care Code D/C DAY MANAGEMENT <30 MINS Diagnoses Encephalopathy G93.40 Stroke I63.9 Hypomagnesemia E83.42 Hypocalcemia E83.51 Osteoarthritis of right hip M16.11 Osteopenia M85.80 Vitamin B12 deficiency E53.8 Acid reflux K21.9
== END 2020-12-27 11:45 | disposition home or self-care (01) | DRG 72 ==
LOC: ED 10:34 → OBSVTOIN 16:27 → 2N 16:27 → INTOOBSV 16:27 → 2N 18:44

== ENCOUNTER 2021-05-11 15:29 | Inpatient (IN) ==
--- NOTE | 2021-05-11 17:49 | Emergency Department Note ---
Impression & Plan Dehydration, Hypomagnesemia, Hypocalcemia, Hypokalemia ED Provider Note NAME: LAN SANCHEZ AGE: 65 SEX: F : 1955 ARRIVES VIA: Walk-In INFORMANT: Patient, ED PROVIDER(S): Harvinder Pinzon MD Chief Complaint: Low calcium HPI: Patient presents due to concern for low calcium. Patient states she has a known history of iron deficiency and did have some testing done recently and was told that her calcium was very low and thus was referred here from the outpatient setting from Drs. Mojgan Michele's office. Patient is not complaining of any acute weakness or spasm. Patient denies any fevers chills chest pain s hortness of breath nausea or vomiting. The son who is also present with the patient states that she may be very deficient as the patient has not been eating or drinking as much does not take multivitamins. Patient otherwise has no acute complaints at this time. Patient denies any alcohol or tobacco use. Patient does have a remote history of breast cancer. Patient states that she does eat dairy but maybe not enough. Patient denies any palpitations ROS: See HPI for pertinent positives and negatives. A total of 10 systems were reviewed and otherwise negative. Past medical history: See below Surgical history: See below Social history: See below Physical Exam: GENERAL: NAD, wearing glasses, wearing a mask, non-toxic. EYE EXAM: Normal conjunctiva. PERRL, no anisocoria and EOM's grossly intact w/o pain. Face: Negative for [place] sign. NECK: Supple, no nuchal rigidity, no adenopathy, non-tender. No signs of meningismus. LUNGS: Clear to auscultation. Normal chest wall mechanics. HEART: NSR, no MRG. ABDOMEN: Abdomen soft, non-tender, normo-active bowel sounds, no masses, no rebo und or guarding. BACK: No CVA TTP. SKIN: No rashes and no bruising. UPPER EXTREMITIES: Upper extremities are grossly normal. LOWER EXTREMITIES: Grossly normal, no edema. NEURO EXAM: A&O x3, cranial nerves II-XII grossly intact, normal speech, moves all 4 extremities on command w/o issue. Differential diagnoses: Infection, dehydration, metabolic abnormality, hypo/hyperglycemia, electrolyte disturbance, anemia, hypoxia, cardiac sources, intracerebral event, toxicologic, neurologic, as well as other pathologies. Course: Patient was seen and evaluated the bedside. Full history physical exam was performed. EKG interpreted by me Normal sinus rhythm, rate of 75, normal intervals, normal axis, T wave inversion in lead III. Slight depressions in the lateral leads. No significant change fr om comparison EKG December 26, 2009 1 Imaging Studies: See Below Cardiac monitoring: An order was placed for continuous cardiac monitoring. The monitor shows a rate of 77 with sinus rhythm. MDM: Patient was seen out in the waiting area as there were no beds initially. The patient family member were comfortable with this as an initial assessment. The patient did have significant hypercalcemia. Patient was ordered additional blood work and was ordered IV calcium replacement. Patient has normal white count with mild anemia of 11.3. Patient's platelet count is unremarkable. Patient's kidney function is unremarkable with mild hypokalemia and hypocalcemia. The patient's magnesium is significantly low 0.5. Covid negative. TSH PTH and vitamin D normal. I did speak with the on-call ho spitalist Dr. Diaz. Patient was admitted to the medicine service. Past Med/Surg History Medical History Acute confusion Arthralgia of multiple sites Breast cancer (~03/2009) Dislocation of hip prosthesis Elevated troponin History of fracture of right hip Surgical History H/O breast surgery H/O section H/O hysterectomy for benign disease H/O left mastectomy H/O: hysterectomy History of hip surgery dislocation of right hip prosthesis 09/2018 [facility] History of revision of total hip arthroplasty History of tonsillectomy Hx of cholecystectomy Family History Mother Colon cancer Hypertension Osteoporosis Thyroid disorder Father , age 77 Coronary heart disease Stroke , Onset Age: 77 Daughter , age 30 Ovarian cancer Breast cancer , Onset Age: 30 Social History Smoking Status: Never smoker Second Hand Exposure: No; Hx Alcohol Use: No Hx Substance Use: No Preferred Language: Vincentian Communication Ability: Effective Visual Impairment: No Limitations Hearing Ability: Normal Chemist Enzymes Required: No Beliefs That Will Affect Care: None marital status: single Current Living Situation: Alone current occupational status: employed Feels Safe at Home: Yes Childhood Exposure to Second-Hand Smoke: No Physical Activity Frequency: 1-2 Times per Week Physical Activity Frequency Comment: Ireggular Seatbelt Use: always Sunscreen Use: Yes Assistive Devices: Cane Allergies Allergies Allergy/AdvReac Type Severity Reaction Status Date / Time adhesive AdvReac Mild HIVES Verified 05/11/21 19:44 Home Meds Home Medications Medication Instructions Recorded Confirmed Lactobacillus acidophilus 10 10,000 mmu cells PO HS 05/11/21 05/11/21 billion cell capsule (Probiotic) atorvastatin 10 mg tablet 10 mg PO HS 05/11/21 05/11/21 Previous Rx's Medication Instructions Recorded omeprazole 40 mg capsule,delayed 40 mg PO QAM #30 cap 12/31/20 release venlafaxine 75 mg capsule,extended 225 mg PO HS #90 cap 03/30/21 release 24 hr alendronate 70 mg tablet (Fosamax) 70 mg PO WK #12 tab 04/14/21 aspirin 81 mg tablet,delayed 81 mg PO QAM #30 tab 04/14/21 release cephalexin 500 mg capsule 500 mg PO Q12H #60 cap 04/14/21 doxycycline hyclate 100 mg 100 mg PO BID #60 tab 04/14/21 tablet,delayed release metoprolol succinate 25 mg 25 mg PO QAM #90 tab 04/14/21 tablet,extended release 24 hr Results & Data (ED) Vital Signs Vital Signs - 24 hr 05/11/21 15:41 Temperature 36.9 C Temperature Source Temporal Artery Scan Pulse Rate 98 H Pulse Rhythm Regular Pulse Strength Normal Respiratory Rate 20 Respiratory Effort / Characteristics Non-Labored Spontaneous Respiratory Depth Normal Respiratory Pattern Regular Blood Pressure 148/90 H Blood Pressure Mean 109 Blood Pressure Position Sitting Pulse Oximetry 100 Oxygen Delivery Method Room Air Sepsis Recent Fever Within 48 Hours No Sepsis New/Unexplained Change in Mental Status N/A Sepsis Action Taken by Nursing No Action Required Home Medications Current Medication List: was personally reviewed by me Laboratory Data Attestation: I reviewed the patient's lab results. Result diagrams: 05/11/21 19:20 05/11/21 19:20 Lab Results 05/11/21 05/11/21 05/11/21 Range/Units 19:00 19:20 19:20 WBC 8.67 (4.8-10.8) K/uL RBC 4.44 (4.2-5.4) M/uL Hgb 11.3 L (12.0-16.0) g/dL Hct 36.0 L (37-47) % MCV 81.1 (80-100) fL MCH 25.5 (25-34) pg MCHC 31.4 L (32-36) g/dL RDW Std Deviation 46.5 H (36.4-46.3) fL RDW Coeff of Blaire 15.7 H (11.5-14.5) % Plt Count 354 (130-400) K/uL MPV 11.3 H (7.4-10.4) fL Immature Gran % (Auto) 0.7 % Neut % (Auto) 62.6 % Lymph % (Auto) 26.2 % [place] % (Auto) 8.5 % Eos % (Auto) 1.8 % Baso % (Auto) 0.2 % Neut # (Auto) 5.42 (1.4-6.5) K/uL Lymph # (Auto) 2.27 (1.2-3.4) K/uL [place] # (Auto) 0.74 H (0.11-0.59) K/uL Eos # (Auto) 0.16 (0-0.5) K/uL Baso # (Auto) 0.02 (0-0.2) K/uL Immature Gran # (Auto) 0.06 H (0.00-0.02) K/uL Sodium 142 (136-145) mmol/L Potassium 3.0 L (3.5-5.1) mmol/L Chloride 105 (98-107) mmol/L Carbon Dioxide 23 (21-32) mmol/L Anion Gap 14 H (3-11) BUN 21 (6-23) mg/dl Creatinine 0.83 (0.6-1.2) mg/dl Est Cr Clr Drug Dosing 44.9 ml/min Est GFR ( Amer) 84.6 ml/min Est GFR (Non-Af Amer) 73.0 ml/min BUN/Creatinine Ratio 25.3 H (10-20) Glucose 97 (70-99(Fasting)) mg/dl Calcium 6.3 L (8.5-10.1) mg/dl Phosphorus 4.0 (2.5-4.9) mg/dl Magnesium < 0.5 L* (1.7-2.4) mg/dl Total Bilirubin 0.5 (0.2-1.0) mg/dl AST 12 L (13-39) U/L ALT 10 (7-52) U/L Alkaline Phosphatase 130 H (34-104) U/L Total Protein 7.2 (6.0-8.3) gm/dl Albumin 3.5 (3.4-5.0) gm/dl Globulin 3.7 (2.5-4.0) gm/dl Albumin/Globulin Ratio 0.9 (0.9-2) 25-OH Vitamin D Total (30-100) ng/ml TSH (0.300-4.500) uIu/ml SARS-CoV-2, RNA, NAAT NEGATIVE (NEGATIVE) 05/11/21 05/11/21 Range/Units 19:20 19:20 WBC (4.8-10.8) K/uL RBC (4.2-5.4) M/uL Hgb (12.0-16.0) g/dL Hct (37-47) % MCV (80-100) fL MCH (25-34) pg MCHC (32-36) g/dL RDW Std Deviation (36.4-46.3) fL RDW Coeff of Blaire (11.5-14.5) % Plt Count (130-400) K/uL MPV (7.4-10.4) fL Immature Gran % (Auto) % Neut % (Auto) % Lymph % (Auto) % [place] % (Auto) % Eos % (Auto) % Baso % (Auto) % Neut # (Auto) (1.4-6.5) K/uL Lymph # (Auto) (1.2-3.4) K/uL [place] # (Auto) (0.11-0.59) K/uL Eos # (Auto) (0-0.5) K/uL Baso # (Auto) (0-0.2) K/uL Immature Gran # (Auto) (0.00-0.02) K/uL Sodium (136-145) mmol/L Potassium (3.5-5.1) mmol/L Chloride (98-107) mmol/L Carbon Dioxide (21-32) mmol/L Anion Gap (3-11) BUN (6-23) mg/dl Creatinine (0.6-1.2) mg/dl Est Cr Clr Drug Dosing ml/min Est GFR ( Amer) ml/min Est GFR (Non-Af Amer) ml/min BUN/Creatinine Ratio (10-20) Glucose (70-99(Fasting)) mg/dl Calcium (8.5-10.1) mg/dl Phosphorus (2.5-4.9) mg/dl Magnesium (1.7-2.4) mg/dl Total Bilirubin (0.2-1.0) mg/dl AST (13-39) U/L ALT (7-52) U/L Alkaline Phosphatase (34-104) U/L Total Protein (6.0-8.3) gm/dl Albumin (3.4-5.0) gm/dl Globulin (2.5-4.0) gm/dl Albumin/Globulin Ratio (0.9-2) 25-OH Vitamin D Total 49.6 (30-100) ng/ml TSH 2.641 (0.300-4.500) uIu/ml SARS-CoV-2, RNA, NAAT (NEGATIVE) Administered Medications Discontinued Medications Calcium Gluconate () 1,000 mg in 60 mls @ 240 mls/hr IV NOW STA Stop: 05/11/21 19:04 Last Infusion: 05/11/21 21:31 Dose: 0 mls/hr Documented by: [id number] Admin: 05/11/21 20:57 Dose: 240 mls/hr Documented by: [id number] Magnesium Sulfate/Dextrose (Magnesium Sulfate / D5w) 1 gm in 100 mls @ 100 mls/hr IV Q1H TANVIR Stop: 05/11/21 22:59 Last Admin: 05/11/21 23:17 Dose: 100 mls/hr Documented by: [id number] Magnesium Sulfate/Dextrose (Magnesium Sulfate / D5w) 1 gm in 100 mls @ 50 mls/hr IV Q2H STA Stop: 05/11/21 22:27 Last Infusion: 05/11/21 23:16 Dose: 0 mls/hr Documented by: [id number] Admin: 05/11/21 20:58 Dose: 50 mls/hr Documented by: [id number] Miscellaneous (Stat Iv) 1 ea N/A NOW STA Stop: 05/11/21 19:45 Last Admin: 05/11/21 21:05 Dose: 1 ea Documented by: [id number] Discharge Plan Visit Data Chief Complaint: Abnormal Labs/Diagnostic Testing Stated Complaint: LOW CALCIUM ED Provider: Harvinder Pinzon Discharge Problem: Dehydration, Hypomagnesemia, Hypocalcemia, Hypokalemia Patient Disposition: Admitted As Inpatient Discharge Instructions Interventions: ED Discharge Assessment Last Done: 05/11/21 23:44
[2021-05-11] MEDS ORDERED: CALCIUM GLUCONATE 1,000 MG/60 ML BAG IV STA (18:50)
[2021-05-11 19:39] LABS: Basophils # (auto) 0.02 K/uL (0-0.2); Basophils % (auto) 0.2 %; Eosinophils # (auto) 0.16 K/uL (0-0.5); Eosinophils % (auto) 1.8 %; Hemoglobin 11.3 g/dL (12.0-16.0); Immature Granulocytes # (auto) 0.06 K/uL (0.00-0.02); Immature Granulocytes % (auto) 0.7 %; Lymphocytes # (auto) 2.27 K/uL (1.2-3.4); Lymphocytes % (auto) 26.2 %; Mean Corpuscular Hemoglobin 25.5 pg (25-34); Mean Corpuscular Hgb Conc 31.4 g/dL (32-36); Mean Corpuscular Volume 81.1 fL (80-100); Mean Platelet Volume 11.3 fL (7.4-10.4); Monocytes # (auto) 0.74 K/uL (0.11-0.59); Monocytes % (auto) 8.5 %; Neutrophils # (auto) 5.42 K/uL (1.4-6.5); Neutrophils % (auto) 62.6 %; Platelet Count 354 K/uL (130-400); RDW Coefficient of Variation 15.7 % (11.5-14.5); RDW Standard Deviation 46.5 fL (36.4-46.3); Red Blood Count 4.44 M/uL (4.2-5.4); White Blood Count 8.67 K/uL (4.8-10.8)
[2021-05-11] MEDS ORDERED: STAT IV STA (19:44)
--- NOTE | 2021-05-11 19:45 | History & Physical Report ---
Date of Service May 11, 2021 Assessment & Plan (1) Hypocalcemia: Plan: 65yo female presenting at the request of her PCP for laboratory abnormalities. Patient with hypocalcemia - serum Ca=6.3, Albumin=3.5. Ionized calcium low at 0.83. Normal Vitamin D level at 49.6 and normal intact PTH level at 51. Patient with prior hypocalcemia - ionized calcium 0.78 in 12/2020. Has reports of episodic confusion which may be secondary to hypocalcemia? Presently she is AA&O x 4, appropriate. She denies paresthesias, cramping, weakness, myalgias or seizure. No EKG/conduction abnormalities noted on EKG. Suspect multifactorial - patient reports poor diet so may be nutritional deficiency. Also with severe hypomagnesemia which can contribute to hypocalcemia. Patient is also on bisphosphonate therapy as well as PPI. Normal PTH level at 51 but would expect elevated level in setting of hypocalcemia - ?degree of hypoparathyroidism as well. ?Possible malabsorption vs poor nutrition - patient is B12 and Iron deficient and demonstrating multiple electrolyte derangements as well - hypo Ca, K, Mg -Admit to medical -Magnesium repletion as below -Calcium repletion - calcium gluconate x 2gm IV -Repeat ionized Ca in AM -Recommend outpatient oral supplementation, improved dietary intake and routine laboratory monitoring -Asked if patient would be interested in speaking with Nutrition services - not at this time (2) Hypomagnesemia: Plan: Mg = <0.05. As above, could be contributing to additional electrolyte derangements as well. ?Poor dietary intake. Patient denies diarrhea. -Repletion - Mg x 6gm IV -Repeat Mg level in AM with additional repletion as needed -Recommend outpatient PO supplementation and improved dietary intake (3) Hypokalemia: Plan: K=3. In setting of hypomagnesemia as above -Mg repletion -KCl 40meq now -Repeat chemistry in AM with additional supplementation as needed (4) Acid reflux: Plan: Chronic. Patient is on Omeprazole which can be contributing to hypomagnesemia -Hold Omeprazole - consider alternative therapy on discharge (5) Depression: Plan: Chronic. Well controlled on medication -Continue Venlafaxine (6) Iron deficiency: Plan: Patient with normochromic/normocytic anemia (Hgb=11.3, Hct=36), MCV=81.1. Recently had iron studies completed (05/10/21) which revealed mild elevation in Ferritin at 392.7, low iron level of 22, low unsaturated IBC at 153. Demonstrates chronic disease pattern more than iron deficiency? -Monitor, repeat CBC in AM (7) Stroke: Plan: Prior CVA -Continue ASA 81mg po daily -Continue Atorvastatin History of Present Illness Chief Complaint: abnormal labs Primary Care Provider: Gold Kelly MD Ai Cardoza is a 65yo female with history of GERD, depression presenting at the request of her PCP for abnormal lab results. She was seen by Hematology yesterday for B12 injection. She had bloodwork sent and was called to come to the ER for hypocalcemia. Patient with no complaints. She reports some fatigue at times. Also states that she is not eating much at home. When further questioned about this it seems that she may have some difficulty chewing and food tastes poor at times. She denies pain or difficulty swallowing. Denies early satiety. Denies fever, chills, malaise, chest pain, cough, SOB, abdominal pain, nausea, vomiting, diarrhea or constipation. No additional complaints. Patient with history of anemia with iron deficiency. She has been seen by Hematology for B12 injections and in the process of having IV iron infusions arranged. 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 - answers most questions for patient Allergies Allergy/AdvReac Type Severity Reaction Status Date / Time adhesive AdvReac Mild HIVES Verified 05/11/21 19:44 Home Medications Medication Instructions Recorded Confirmed Type omeprazole 40 mg capsule,delayed 40 mg PO QAM #30 cap 12/31/20 05/11/21 Rx release venlafaxine 75 mg capsule,extended 225 mg PO HS #90 cap 03/30/21 05/11/21 Rx release 24 hr alendronate 70 mg tablet (Fosamax) 70 mg PO WK #12 tab 04/14/21 05/11/21 Rx aspirin 81 mg tablet,delayed 81 mg PO QAM #30 tab 04/14/21 05/11/21 Rx release cephalexin 500 mg capsule 500 mg PO Q12H #60 cap 04/14/21 05/11/21 Rx doxycycline hyclate 100 mg 100 mg PO BID #60 tab 04/14/21 05/11/21 Rx tablet,delayed release metoprolol succinate 25 mg 25 mg PO QAM #90 tab 04/14/21 05/11/21 Rx tablet,extended release 24 hr Lactobacillus acidophilus 10 10,000 mmu cells PO HS 05/11/21 05/11/21 History billion cell capsule (Probiotic) atorvastatin 10 mg tablet 10 mg PO HS 05/11/21 05/11/21 History Past Med/Surg History Medical History Acute confusion Arthralgia of multiple sites Breast cancer (~03/2009) Dislocation of hip prosthesis Elevated troponin History of fracture of right hip Surgical History H/O breast surgery H/O section H/O hysterectomy for benign disease H/O left mastectomy H/O: hysterectomy History of hip surgery dislocation of right hip prosthesis 09/2018 [facility] [place] History of revision of total hip arthroplasty History of tonsillectomy Hx of cholecystectomy Family History Mother Colon cancer Hypertension Osteoporosis Thyroid disorder Father , age 77 Coronary heart disease Stroke , Onset Age: 77 Daughter , age 30 Ovarian cancer Breast cancer , Onset Age: 30 Social History Smoking Status: Never smoker Second Hand Exposure: No; Hx Alcohol Use: No Hx Substance Use: No Preferred Language: Frisian Communication Ability: Effective Visual Impairment: No Limitations Hearing Ability: Normal 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 Therapy Required: No Beliefs That Will Affect Care: None marital status: single Current Living Situation: Alone current occupational status: employed Feels Safe at Home: Yes Childhood Exposure to Second-Hand Smoke: No Physical Activity Frequency: 1-2 Times per Week Physical Activity Frequency Comment: Ireggular Seatbelt Use: always Sunscreen Use: Yes Assistive Devices: Cane Review of Systems Review of Systems: All systems reviewed & are unremarkable except as noted in HPI & below Physical Exam Physical Exam: General: patient resting comfortably, NAD, non-toxic in appearance, AA&O x 4 Skin: warm, dry, intact, no rashes or lesions HEENT: NC/AT, PERRL, EOMI, anicteric sclera, conjunctiva without injection, external ear normal to inspection and nontender, nares patent, moist mucus membranes, dentures in place, no oropharyngeal lesions, neck supple, trachea midline, no LAD, no thyromegaly, no JVD Heart: +S1/S2, regular, no m/r/g Lungs: equal air entry bilaterally, no rales/rhonchi/wheezes Abd: +BS, soft, NT/ND, no masses/organomegaly/ascites Ext: warm, 2+ pulses in UE/LE bilaterally, no clubbing/cyanosis or edema Neuro: nonfocal, patient AA&O x 4, speech intact, no facial droop, moving all extremities on command with equal strength 5/5 Negative Trousseu's sign Negative Chvostek's sign Results & Data Results & Data ([facility]) Vital Signs (Past 12 Hours) Vital Signs Temp Pulse Resp BP Pulse Ox 05/11/21 15:41 36.9 C 98 H 20 148/90 H 100 Laboratory Results Laboratory Results WBC 8.67 K/uL (4.8-10.8) 05/11/21 19:20 RBC 4.44 M/uL (4.2-5.4) 05/11/21 19:20 Hgb 11.3 g/dL (12.0-16.0) L 05/11/21 19:20 Hct 36.0 % (37-47) L 05/11/21 19:20 MCV 81.1 fL (80-100) 05/11/21 19:20 MCH 25.5 pg (25-34) 05/11/21 19:20 MCHC 31.4 g/dL (32-36) L 05/11/21 19:20 RDW Std Deviation 46.5 fL (36.4-46.3) H 05/11/21 19:20 RDW Coeff of Blaire 15.7 % (11.5-14.5) H 05/11/21 19:20 Plt Count 354 K/uL (130-400) 05/11/21 19:20 MPV 11.3 fL (7.4-10.4) H 05/11/21 19:20 Immature Gran % (Auto) 0.7 % 05/11/21 19:20 Neut % (Auto) 62.6 % 05/11/21 19: Lymph % (Auto) 26.2 % 05/11/21 19:20 Carbon % (Auto) 8.5 % 05/11/21 19:20 Eos % (Auto) 1.8 % 05/11/21 19:20 Baso % (Auto) 0.2 % 05/11/21 19:20 Neut # (Auto) 5.42 K/uL (1.4-6.5) 05/11/21 19:20 Lymph # (Auto) 2.27 K/uL (1.2-3.4) 05/11/21 19:20 Carbon # (Auto) 0.74 K/uL (0.11-0.59) H 05/11/21 19:20 Eos # (Auto) 0.16 K/uL (0-0.5) 05/11/21 19:20 Baso # (Auto) 0.02 K/uL (0-0.2) 05/11/21 19:20 Immature Gran # (Auto) 0.06 K/uL (0.00-0.02) H 05/11/21 19:20 Sodium 142 mmol/L (136-145) 05/11/21 19:20 Potassium 3.0 mmol/L (3.5-5.1) L 05/11/21 19:20 Chloride 105 mmol/L (98-107) 05/11/21 19:20 Carbon Dioxide 23 mmol/L (21-32) 05/11/21 19:20 Anion Gap 14 (3-11) H 05/11/21 19:20 BUN 21 mg/dl (6-23) 05/11/21 19:20 Creatinine 0.83 mg/dl (0.6-1.2) 05/11/21 19:20 Est Cr Clr Drug Dosing 44.9 ml/min 05/11/21 19:20 Est GFR ( Amer) 84.6 ml/min 05/11/21 19:20 Est GFR (Non-Af Amer) 73.0 ml/min 05/11/21 19:20 BUN/Creatinine Ratio 25.3 (10-20) H 05/11/21 19:20 Glucose 97 mg/dl (70-99(Fasting)) 05/11/21 19:20 Calcium 6.3 mg/dl (8.5-10.1) L 05/11/21 19:20 Phosphorus 4.0 mg/dl (2.5-4.9) 05/11/21 19:20 Magnesium < 0.5 mg/dl (1.7-2.4) L* 05/11/21 19:20 Total Bilirubin 0.5 mg/dl (0.2-1.0) 05/11/21 19:20 AST 12 U/L (13-39) L 05/11/21 19:20 ALT 10 U/L (7-52) 05/11/21 19:20 Alkaline Phosphatase 130 U/L (34-104) H 05/11/21 19:20 Total Protein 7.2 gm/dl (6.0-8.3) 05/11/21 19:20 Albumin 3.5 gm/dl (3.4-5.0) 05/11/21 19:20 Globulin 3.7 gm/dl (2.5-4.0) 05/11/21 19:20 Albumin/Globulin Ratio 0.9 (0.9-2) 05/11/21 19:20 25-OH Vitamin D Total 49.6 ng/ml (30-100) 05/11/21 19:20 TSH 2.641 uIu/ml (0.300-4.500) 05/11/21 19:20 PTH Intact 51.0 pg/ml (12.0-88.0) 05/11/21 20:45 SARS-CoV-2, RNA, NAAT NEGATIVE (NEGATIVE) 05/11/21 19:00 ECG Additional Comments: EKG with NSR at 75bpm, normal axis, RI=195, QRS=80, BWm=846, no acute ischemic changes Code Status & VTE Plan VTE Prophylaxis Plan VTE Prophylaxis will be ordered: No PG Care Time/CCT Total # of Minutes Spent Total Time Spent with Patient: Total time spent is greater than 50% in coordination of care (as documented) at patient's floor/unit and/or counseling patient: Coding Level of Care Code 04703 Initial Inpt Care Lvl 3 Diagnoses Hypocalcemia E83.51 Hypomagnesemia E83.42 Acid reflux K21.9 Depression F32.9 Hypokalemia E87.6 Iron deficiency E61.1 Stroke I63.9
[2021-05-11 20:01] LABS: Anion Gap 14 (3-11); BUN Creatinine Ratio 25.3 (10-20); Blood Urea Nitrogen 21 mg/dl (6-23); Calcium 6.3 mg/dl (8.5-10.1); Carbon Dioxide 23 mmol/L (21-32); Chloride 105 mmol/L (98-107); Creatinine Clr Calc Pharmacy 44.9 ml/min; Est GFR (African American) 84.6 ml/min; Glucose 97 mg/dl (70-99(Fasting)); Sodium 142 mmol/L (136-145)
[2021-05-11 20:21] LABS: Alanine Aminotransferase 10 U/L (7-52); Albumin Globulin Ratio 0.9 (0.9-2); Albumin Level 3.5 gm/dl (3.4-5.0); Alkaline Phosphatase 130 U/L (34-104); Aspartate Aminotransferase 12 U/L (13-39); Bilirubin,Total 0.5 mg/dl (0.2-1.0); Globulin 3.7 gm/dl (2.5-4.0); Magnesium < 0.5 mg/dl (1.7-2.4); Total Protein 7.2 gm/dl (6.0-8.3)
[2021-05-11] MEDS ORDERED: MAGNESIUM SULFATE / D5W 1 GM/100 ML BAG IV STA (20:28)
[2021-05-11] MEDS ORDERED: POTASSIUM CHLORIDE CRTAB 20 MEQ TABCR PO STA (23:05)
[2021-05-11] MEDS: MAGNESIUM SULFATE / D5W 1 GM/100 ML BAG IV SCH (23:17)
[2021-05-12] MEDS ORDERED: VENLAFAXINE HCL XR 75 MG CAPXR PO SCH (00:55)
[2021-05-12] MEDS ORDERED: ONDANSETRON INJ 2 MG/ML 2 ML VIAL IV PRN (00:55)
[2021-05-12] MEDS ORDERED: CALCIUM GLUCONATE 10% 1,000 MG in DEXTROSE 5% 50 ML IV STA (00:56)
[2021-05-12] MEDS: MAGNESIUM SULFATE / D5W 1 GM/100 ML BAG IV SCH ×4 (00:56→05:05)
[2021-05-12] MEDS: cephALEXin 500 MG CAP PO SCH ×4 (02:00→21:12)
[2021-05-12] MEDS: DOXYCYCLINE HYCLATE 100 MG CAP PO SCH ×4 (02:00→21:11)
[2021-05-12] MEDS: ATORVASTATIN 10 MG TAB PO SCH ×2 (02:00→21:11)
[2021-05-12] MEDS ORDERED: hydrALAZINE HCL 20 MG/ML VIAL IV ONE (04:20)
[2021-05-12 05:13] LABS: Appearance Urine Clear (Clear); Bilirubin Urine Negative (Negative); Blood Urine Negative (Negative); Color Urine Yellow; Glucose Urine UA Negative (Negative); Ketones Urine Negative (Negative); Leukocyte Esterase Urine Negative (Negative); Nitrite Urine Negative (Negative); Protein Urine Negative (Negative); Specific Gravity Urine 1.006 (1.000-1.030); Urobilinogen Urine Negative (Negative); pH Urine 7.5 (4.5-7.5)
[2021-05-12] MEDS: ACETAMINOPHEN 325 MG TAB PO PRN ×2 (05:38→22:00)
[2021-05-12 07:11] LABS: Basophils # (auto) 0.01 K/uL (0-0.2); Basophils % (auto) 0.1 %; Eosinophils # (auto) 0.19 K/uL (0-0.5); Eosinophils % (auto) 2.5 %; Hematocrit (blood only) 35.3 % (37-47); Immature Granulocytes # (auto) 0.04 K/uL (0.00-0.02); Immature Granulocytes % (auto) 0.5 %; Lymphocytes # (auto) 0.83 K/uL (1.2-3.4); Lymphocytes % (auto) 10.9 %; Mean Corpuscular Hemoglobin 25.1 pg (25-34); Mean Corpuscular Hgb Conc 31.2 g/dL (32-36); Mean Corpuscular Volume 80.6 fL (80-100); Mean Platelet Volume 11.4 fL (7.4-10.4); Monocytes # (auto) 0.77 K/uL (0.11-0.59); Monocytes % (auto) 10.1 %; Neutrophils % (auto) 75.9 %; Platelet Count 340 K/uL (130-400); RDW Coefficient of Variation 15.8 % (11.5-14.5); RDW Standard Deviation 45.6 fL (36.4-46.3); Red Blood Count 4.38 M/uL (4.2-5.4); White Blood Count 7.64 K/uL (4.8-10.8)
[2021-05-12 07:42] LABS: Albumin Level 3.1 gm/dl (3.4-5.0); BUN Creatinine Ratio 22.1 (10-20); Bilirubin Direct 0.1 mg/dl (0-0.2); Bilirubin,Total 0.5 mg/dl (0.2-1.0); Calcium 6.9 mg/dl (8.5-10.1); Creatinine Clr Calc Pharmacy 54.7 ml/min; Est GFR (African American) 104.9 ml/min; Est GFR (Non-African American) 90.5 ml/min; Magnesium 2.6 mg/dl (1.7-2.4); Potassium 3.2 mmol/L (3.5-5.1); Total Protein 6.6 gm/dl (6.0-8.3)
[2021-05-12] MEDS: ASPIRIN 81 MG ECTAB PO SCH (08:01)
[2021-05-12] MEDS: METOPROLOL SUCC 25MG EXT REL TAB PO SCH (08:01)
[2021-05-12] MEDS ORDERED: PROMETHAZINE HCL 12.5 MG in SODIUM CHLORIDE 0.9% 50 ML IV STA (08:40)
[2021-05-12] MEDS ORDERED: PROMETHAZINE HCL 6.25 MG in SODIUM CHLORIDE 0.9% 50 ML IV PRN (08:40)
[2021-05-12] MEDS ORDERED: STAT IV STA (08:42)
[2021-05-12] MEDS ORDERED: CALCIUM GLUCONATE 10% 2,000 MG in DEXTROSE 5% 50 ML IV ONE (08:42)
[2021-05-12] MEDS ORDERED: POTASSIUM CHLORIDE CRTAB 20 MEQ TABCR PO STA (08:42)
--- NOTE | 2021-05-12 08:52 | Hospitalist Progress Note ---
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 Patient with hypocalcemia - serum Ca=6.3, Albumin=3.5. Ionized calcium low at 0.83. Normal Vitamin D level at 49.6 and normal intact PTH level at 51. Patient with prior hypocalcemia - ionized calcium 0.78 in 12/2020 as well as Mag 0.7 at that time * Has reports of episodic confusion which may be secondary to hypocalcemia? Presently she is AA&O x 4, appropriate. She denies paresthesias, cramping, weakness, myalgias or seizure. No EKG/conduction abnormalities noted on EKG. * Suspect multifactorial - patient reports poor diet so may be nutritional deficiency. Also with severe hypomagnesemia which can contribute to hypocalcemia. Patient is also on bisphosphonate therapy as well as PPI. Normal PTH level at 51 but would expect elevated level in setting of hypocalcemia - ?degree of hypoparathyroidism as well. * ?Possible malabsorption vs poor nutrition - patient is B12 and Iron deficient and demonstrating multiple electrolyte derangements as well - hypo Ca, K, Mg * No hx gastric bypass -Recommend outpatient oral supplementation, improved dietary intake and routine laboratory monitoring -Asked if patient would be interested in speaking with Nutrition services - not at this time 05/12 Vit D 49.6 -- on alendronate 70mg weekly [employer]ER. 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 No further to be given Phenergan prn nausea/vomiting -- given 1 x now this morning Checking PTH -related peptide for further delineation K still 3.2-- ordered additional 20meq PO, 20meq IV if unable to tolerate PO given n/v this morning ?Underlying type Gitelman/barter syndrome with continued hypomagnesemia. Holding PPI as could also be contributing. Start pepcid daily. 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 As above, could be contributing to additional electrolyte derangements as well. ?Poor dietary intake. Patient denies diarrhea. -Repletion - Mg x 6gm IV -Repeat Mg level in AM with additional repletion as needed -Recommend outpatient PO supplementation and improved dietary intake Repeat mag wnl this morning --> consider PO supplementation at discharge. No increase in reflux symptoms reported Monitor labs in AM (3) Hypokalemia: Plan: K=3. In setting of hypomagnesemia as above. 40meq PO ordered -Mg repletion as above, now wnl K again low this morning, PO and IV ordered -- tolerating well Lack of PO intake/n/v as above Check AM cortisol level as well Continue to monitor (4) Acid reflux: Plan: Chronic. Patient is on Omeprazole which can be contributing to hypomagnesemia -Hold Omeprazole - consider alternative therapy on discharge No reflux symptoms and will continue famotidine IVP while inpatient, consider continuing this at d/c (5) Depression: Plan: Chronic. Well controlled on medication -Continue Venlafaxine (6) Iron deficiency: Plan: Patient with normochromic/normocytic anemia (Hgb=11.3, Hct=36), MCV=81.1. Recently had iron studies completed (05/10/21) which revealed mild elevation in Ferritin at 392.7, low iron level of 22, low unsaturated IBC at 153. Demonstrates chronic disease pattern more than iron deficiency? -Monitor, repeat CBC in AM (7) Stroke: Plan: Prior CVA Dec 2020, followed by Neuro locally Repeat MRI, holter monitor, carotid dopplers without acute findings per most recent note -Continue ASA 81mg po daily -Continue Atorvastatin -- unclear if patient may/may not have been taking this. Last LDL elevated and will need to ensure she is taking properly Plan: continued inpatient stay/replacement of electrolytes and consultation with nephrology labs in am possible d/c in next 24-48 hours with outpatient follow up Admission and Anticipated Discharge Date Admission Date: May 11, 2021 Supervising Physician Co-Signing Physician Notes PA Supervision Note: I did not personally see or examine the patient today, but I verified all mar points of MARCOS Lozada's assessment and plan with the following exceptions/additions: None Subjective patient evaluated this morning did have some nausea/vomiting x 2 this morning, nothing since that time does not endorse any need for anything for nausea no issues with eating/drinking after getting sick no issues with increased reflux not on magnesium supplementation 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 Tolerating IV potassium replacement without issue. No chest pain/shortness of breath/dizziness/lightheadedness. Questions/concerns answered at this time. Review of Systems Review of Systems: All systems reviewed & are unremarkable except as noted in HPI & below Physical Exam Physical Exam: General: WN/WD frail elderly lady sitting up at side of bed needing to use restroom/unhooked from IV Psych: alert, oriented x 4 HEENT: normocephalic, atraumatic, mmm, no JVD, pupils equal and reactive. Resp: CTAB, no w/c/r, on room air CV: RRR, no m/r/g GI: +BS, soft, non-tender, no guarding/rigidity MSK/Neuro: moves all extremities, no focal deficit, speech intact/no droop, stregnth equal bilaterally. Negative Trousseau's sign/chvostek's sign Results & Data Results & Data ([facility]) Vital Signs (Past 12 Hours) Vital Signs Temp Pulse Pulse Pulse Resp BP BP 05/12/21 07:19 36.5 C 87 16 159/75 H 05/12/21 05:35 85 158/75 H 05/12/21 04:13 109 H 219/115 H 05/12/21 03:03 36.9 C 83 18 201/92 H 05/12/21 01:49 72 12 164/76 H 05/11/21 23:44 73 14 155/77 H 05/11/21 21:08 74 12 168/74 H Pulse Ox 05/12/21 07:19 96 05/12/21 05:35 05/12/21 04:13 05/12/21 03:03 100 05/12/21 01:49 97 05/11/21 23:44 98 05/11/21 21:08 98 Laboratory Results 05/12/21 05/12/21 05/12/21 Range/Units 09:55 06:49 06:49 WBC (4.8-10.8) K/uL RBC (4.2-5.4) M/uL Hgb (12.0-16.0) g/dL Hct (37-47) % MCV (80-100) fL MCH (25-34) pg MCHC (32-36) g/dL RDW Std Deviation (36.4-46.3) fL RDW Coeff of [place] (11.5-14.5) % Plt Count (130-400) K/uL MPV (7.4-10.4) fL Immature Gran % (Auto) % Neut % (Auto) % Lymph % (Auto) % [place] % (Auto) % Eos % (Auto) % Baso % (Auto) % Neut # (Auto) (1.4-6.5) K/uL Lymph # (Auto) (1.2-3.4) K/uL [place] # (Auto) (0.11-0.59) K/uL Eos # (Auto) (0-0.5) K/uL Baso # (Auto) (0-0.2) K/uL Immature Gran # (Auto) (0.00-0.02) K/uL Sodium (136-145) mmol/L Potassium (3.5-5.1) mmol/L Chloride (98-107) mmol/L Carbon Dioxide (21-32) mmol/L Anion Gap (3-11) BUN (6-23) mg/dl Creatinine (0.6-1.2) mg/dl Est Cr Clr Drug Dosing ml/min Est GFR ( Amer) ml/min Est GFR (Non-Af Amer) ml/min BUN/Creatinine Ratio (10-20) Glucose (70-99(Fasting)) mg/dl Calcium (8.5-10.1) mg/dl Ionized Calcium (1.12-1.32) mmol/L Phosphorus 2.9 D (2.5-4.9) mg/dl Magnesium (1.7-2.4) mg/dl Transferrin (200-360) mg/dl Total Bilirubin (0.2-1.0) mg/dl Direct Bilirubin (0-0.2) mg/dl AST (13-39) U/L ALT (7-52) U/L Alkaline Phosphatase (34-104) U/L Total Protein (6.0-8.3) gm/dl Albumin (3.4-5.0) gm/dl Globulin (2.5-4.0) gm/dl Albumin/Globulin Ratio (0.9-2) 25-OH Vitamin D Total (30-100) ng/ml TSH (0.300-4.500) uIu/ml PTH Intact (12.0-88.0) pg/ml PTH Related Protein Pending Urine Color Urine Appearance (Clear) Urine pH (4.5-7.5) Ur Specific [place] (1.000-1.030) Urine Protein (Negative) Urine Glucose (UA) (Negative) Urine Ketones (Negative) Urine Blood (Negative) Urine Nitrite (Negative) Urine Bilirubin (Negative) Urine Urobilinogen (Negative) Ur Leukocyte Esterase (Negative) Hepatitis C Ab Screen Neg (Neg) SARS-CoV-2, RNA, NAAT (NEGATIVE) 05/12/21 05/12/21 05/12/21 Range/Units 06:49 06:49 06:49 WBC 7.64 (4.8-10.8) K/uL RBC 4.38 (4.2-5.4) M/uL Hgb 11.0 L (12.0-16.0) g/dL Hct 35.3 L (37-47) % MCV 80.6 (80-100) fL MCH 25.1 (25-34) pg MCHC 31.2 L (32-36) g/dL RDW Std Deviation 45.6 (36.4-46.3) fL RDW Coeff of [place]aire 15.8 H (11.5-14.5) % Plt Count 340 (130-400) K/uL MPV 11.4 H (7.4-10.4) fL Immature Gran % (Auto) 0.5 % Neut % (Auto) 75.9 % Lymph % (Auto) 10.9 % [place] % (Auto) 10.1 % Eos % (Auto) 2.5 % Baso % (Auto) 0.1 % Neut # (Auto) 5.80 (1.4-6.5) K/uL Lymph # (Auto) 0.83 L (1.2-3.4) K/uL [place] # (Auto) 0.77 H (0.11-0.59) K/uL Eos # (Auto) 0.19 (0-0.5) K/uL Baso # (Auto) 0.01 (0-0.2) K/uL Immature Gran # (Auto) 0.04 H (0.00-0.02) K/uL Sodium 139 (136-145) mmol/L Potassium 3.2 L (3.5-5.1) mmol/L Chloride 107 (98-107) mmol/L Carbon Dioxide 21 (21-32) mmol/L Anion Gap 11 (3-11) BUN 15 (6-23) mg/dl Creatinine 0.68 (0.6-1.2) mg/dl Est Cr Clr Drug Dosing 54.7 ml/min Est GFR ( Amer) 104.9 ml/min Est GFR (Non-Af Amer) 90.5 ml/min BUN/Creatinine Ratio 22.1 H (10-20) Glucose 123 H (70-99(Fasting)) mg/dl Calcium 6.9 L (8.5-10.1) mg/dl Ionized Calcium 0.92 L (1.12-1.32) mmol/L Phosphorus (2.5-4.9) mg/dl Magnesium 2.6 H (1.7-2.4) mg/dl Transferrin 116 L (200-360) mg/dl Total Bilirubin 0.5 (0.2-1.0) mg/dl Direct Bilirubin 0.1 (0-0.2) mg/dl AST 12 L (13-39) U/L ALT 8 (7-52) U/L Alkaline Phosphatase 125 H (34-104) U/L Total Protein 6.6 (6.0-8.3) gm/dl Albumin 3.1 L (3.4-5.0) gm/dl Globulin (2.5-4.0) gm/dl Albumin/Globulin Ratio (0.9-2) 25-OH Vitamin D Total (30-100) ng/ml TSH (0.300-4.500) uIu/ml PTH Intact (12.0-88.0) pg/ml PTH Related Protein Urine Color Urine Appearance (Clear) Urine pH (4.5-7.5) Ur Specific [place] (1.000-1.030) Urine Protein (Negative) Urine Glucose (UA) (Negative) Urine Ketones (Negative) Urine Blood (Negative) Urine Nitrite (Negative) Urine Bilirubin (Negative) Urine Urobilinogen (Negative) Ur Leukocyte Esterase (Negative) Hepatitis C Ab Screen (Neg) SARS-CoV-2, RNA, NAAT (NEGATIVE) 05/12/21 05/11/21 05/11/21 Range/Units 05:04 20:45 19:20 WBC (4.8-10.8) K/uL RBC (4.2-5.4) M/uL Hgb (12.0-16.0) g/dL Hct (37-47) % MCV (80-100) fL MCH (25-34) pg MCHC (32-36) g/dL RDW Std Deviation (36.4-46.3) fL RDW Coeff of Blaire (11.5-14.5) % Plt Count (130-400) K/uL MPV (7.4-10.4) fL Immature Gran % (Auto) % Neut % (Auto) % Lymph % (Auto) % [place] % (Auto) % Eos % (Auto) % Baso % (Auto) % Neut # (Auto) (1.4-6.5) K/uL Lymph # (Auto) (1.2-3.4) K/uL [place] # (Auto) (0.11-0.59) K/uL Eos # (Auto) (0-0.5) K/uL Baso # (Auto) (0-0.2) K/uL Immature Gran # (Auto) (0.00-0.02) K/uL Sodium (136-145) mmol/L Potassium (3.5-5.1) mmol/L Chloride (98-107) mmol/L Carbon Dioxide (21-32) mmol/L Anion Gap (3-11) BUN (6-23) mg/dl Creatinine (0.6-1.2) mg/dl Est Cr Clr Drug Dosing ml/min Est GFR ( Amer) ml/min Est GFR (Non-Af Amer) ml/min BUN/Creatinine Ratio (10-20) Glucose (70-99(Fasting)) mg/dl Calcium (8.5-10.1) mg/dl Ionized Calcium (1.12-1.32) mmol/L Phosphorus (2.5-4.9) mg/dl Magnesium (1.7-2.4) mg/dl Transferrin (200-360) mg/dl Total Bilirubin (0.2-1.0) mg/dl Direct Bilirubin (0-0.2) mg/dl AST (13-39) U/L ALT (7-52) U/L Alkaline Phosphatase (34-104) U/L Total Protein (6.0-8.3) gm/dl Albumin (3.4-5.0) gm/dl Globulin (2.5-4.0) gm/dl Albumin/Globulin Ratio (0.9-2) 25-OH Vitamin D Total 49.6 (30-100) ng/ml TSH (0.300-4.500) uIu/ml PTH Intact 51.0 (12.0-88.0) pg/ml PTH Related Protein Urine Color Yellow Urine Appearance Clear (Clear) Urine pH 7.5 (4.5-7.5) Ur Specific [place] 1.006 (1.000-1.030) Urine Protein Negative (Negative) Urine Glucose (UA) Negative (Negative) Urine Ketones Negative (Negative) Urine Blood Negative (Negative) Urine Nitrite Negative (Negative) Urine Bilirubin Negative (Negative) Urine Urobilinogen Negative (Negative) Ur Leukocyte Esterase Negative (Negative) Hepatitis C Ab Screen (Neg) SARS-CoV-2, RNA, NAAT (NEGATIVE) 05/11/21 05/11/21 05/11/21 Range/Units 19:20 19:20 19:20 WBC 8.67 (4.8-10.8) K/uL RBC 4.44 (4.2-5.4) M/uL Hgb 11.3 L (12.0-16.0) g/dL Hct 36.0 L (37-47) % MCV 81.1 (80-100) fL MCH 25.5 (25-34) pg MCHC 31.4 L (32-36) g/dL RDW Std Deviation 46.5 H (36.4-46.3) fL RDW Coeff of [place]aire 15.7 H (11.5-14.5) % Plt Count 354 (130-400) K/uL MPV 11.3 H (7.4-10.4) fL Immature Gran % (Auto) 0.7 % Neut % (Auto) 62.6 % Lymph % (Auto) 26.2 % [place] % (Auto) 8.5 % Eos % (Auto) 1.8 % Baso % (Auto) 0.2 % Neut # (Auto) 5.42 (1.4-6.5) K/uL Lymph # (Auto) 2.27 (1.2-3.4) K/uL [place] # (Auto) 0.74 H (0.11-0.59) K/uL Eos # (Auto) 0.16 (0-0.5) K/uL Baso # (Auto) 0.02 (0-0.2) K/uL Immature Gran # (Auto) 0.06 H (0.00-0.02) K/uL Sodium 142 (136-145) mmol/L Potassium 3.0 L (3.5-5.1) mmol/L Chloride 105 (98-107) mmol/L Carbon Dioxide 23 (21-32) mmol/L Anion Gap 14 H (3-11) BUN 21 (6-23) mg/dl Creatinine 0.83 (0.6-1.2) mg/dl Est Cr Clr Drug Dosing 44.9 ml/min Est GFR ( Amer) 84.6 ml/min Est GFR (Non-Af Amer) 73.0 ml/min BUN/Creatinine Ratio 25.3 H (10-20) Glucose 97 (70-99(Fasting)) mg/dl Calcium 6.3 L (8.5-10.1) mg/dl Ionized Calcium (1.12-1.32) mmol/L Phosphorus 4.0 (2.5-4.9) mg/dl Magnesium < 0.5 L* (1.7-2.4) mg/dl Transferrin (200-360) mg/dl Total Bilirubin 0.5 (0.2-1.0) mg/dl Direct Bilirubin (0-0.2) mg/dl AST 12 L (13-39) U/L ALT 10 (7-52) U/L Alkaline Phosphatase 130 H (34-104) U/L Total Protein 7.2 (6.0-8.3) gm/dl Albumin 3.5 (3.4-5.0) gm/dl Globulin 3.7 (2.5-4.0) gm/dl Albumin/Globulin Ratio 0.9 (0.9-2) 25-OH Vitamin D Total (30-100) ng/ml TSH 2.641 (0.300-4.500) uIu/ml PTH Intact (12.0-88.0) pg/ml PTH Related Protein Urine Color Urine Appearance (Clear) Urine pH (4.5-7.5) Ur Specific [place] (1.000-1.030) Urine Protein (Negative) Urine Glucose (UA) (Negative) Urine Ketones (Negative) Urine Blood (Negative) Urine Nitrite (Negative) Urine Bilirubin (Negative) Urine Urobilinogen (Negative) Ur Leukocyte Esterase (Negative) Hepatitis C Ab Screen (Neg) SARS-CoV-2, RNA, NAAT (NEGATIVE) 05/11/21 Range/Units 19:00 WBC (4.8-10.8) K/uL RBC (4.2-5.4) M/uL Hgb (12.0-16.0) g/dL Hct (37-47) % MCV (80-100) fL MCH (25-34) pg MCHC (32-36) g/dL RDW Std Deviation (36.4-46.3) fL RDW Coeff of [place] (11.5-14.5) % Plt Count (130-400) K/uL MPV (7.4-10.4) fL Immature Gran % (Auto) % Neut % (Auto) % Lymph % (Auto) % [place] % (Auto) % Eos % (Auto) % Baso % (Auto) % Neut # (Auto) (1.4-6.5) K/uL Lymph # (Auto) (1.2-3.4) K/uL [place] # (Auto) (0.11-0.59) K/uL Eos # (Auto) (0-0.5) K/uL Baso # (Auto) (0-0.2) K/uL Immature Gran # (Auto) (0.00-0.02) K/uL Sodium (136-145) mmol/L Potassium (3.5-5.1) mmol/L Chloride (98-107) mmol/L Carbon Dioxide (21-32) mmol/L Anion Gap (3-11) BUN (6-23) mg/dl Creatinine (0.6-1.2) mg/dl Est Cr Clr Drug Dosing ml/min Est GFR ( Amer) ml/min Est GFR (Non-Af Amer) ml/min BUN/Creatinine Ratio (10-20) Glucose (70-99(Fasting)) mg/dl Calcium (8.5-10.1) mg/dl Ionized Calcium (1.12-1.32) mmol/L Phosphorus (2.5-4.9) mg/dl Magnesium (1.7-2.4) mg/dl Transferrin (200-360) mg/dl Total Bilirubin (0.2-1.0) mg/dl Direct Bilirubin (0-0.2) mg/dl AST (13-39) U/L ALT (7-52) U/L Alkaline Phosphatase (34-104) U/L Total Protein (6.0-8.3) gm/dl Albumin (3.4-5.0) gm/dl Globulin (2.5-4.0) gm/dl Albumin/Globulin Ratio (0.9-2) 25-OH Vitamin D Total (30-100) ng/ml TSH (0.300-4.500) uIu/ml PTH Intact (12.0-88.0) pg/ml PTH Related Protein Urine Color Urine Appearance (Clear) Urine pH (4.5-7.5) Ur Specific [place] (1.000-1.030) Urine Protein (Negative) Urine Glucose (UA) (Negative) Urine Ketones (Negative) Urine Blood (Negative) Urine Nitrite (Negative) Urine Bilirubin (Negative) Urine Urobilinogen (Negative) Ur Leukocyte Esterase (Negative) Hepatitis C Ab Screen (Neg) SARS-CoV-2, RNA, NAAT NEGATIVE (NEGATIVE) PG Care Time/CCT Total # of Minutes Spent Total Time Spent with Patient: Total time spent is greater than 50% in coordination of care (as documented) at patient's floor/unit and/or counseling patient: Coding Level of Care Code 51818 Subseq Hosp Care Lvl 3 Diagnoses Hypocalcemia E83.51 Hypomagnesemia E83.42 Hypokalemia E87.6 Acid reflux K21.9 Depression F32.9 Iron deficiency E61.1 Stroke I63.9
[2021-05-12] MEDS: FAMOTIDINE 20 MG in SYRINGE 3 ML IV SCH (09:51)
[2021-05-12] MEDS: POTASSIUM CHLORIDE / WTR 10 MEQ/100 ML PLCT IV SCH ×2 (10:40→11:49)
--- NOTE | 2021-05-12 17:46 | Nephrology Consultation ---
Date of Consultation May 12, 2021 Assessment & Plan (1) Hypomagnesemia: (2) Hypocalcemia: (3) Hypokalemia: Electrolytes improving with replacement. Denies significant GI losses at this time. Appetite is fair. Dietary goals were reviewed. Hypokalemia and hypocalcemia may certainly be related to the underlying severe hypomagnesemia. Hypomagnesemia can be attributed to the use of a PPI, GI losses, and I could not exclude possible renal wasting. Patient did not have glucosuria on her urinalysis. Serum phosphorus was normal. These findings not completely exclude a proximal tubular dysfunction. She did not have a non-anion gap metabolic acidosis. As her serum magnesium is normalizing, random urine fractional excretion of magnesium can be obtained at this time. Serum electrolytes will be monitored every 12 hours. Ppi has been discontinued. Fosamax has appropriately been held. For overall nutritional deficiencies, an appropriate GI evaluation has been initiated. History of Present Illness Reason for Consultation: Hypomagnesemia, hypokalemia Requesting Physician: Beatriz Clark MD Attending Physician: Beatriz Clark MD History of Present Illness Ai Cardoza is a 65-year-old female with a history breast cancer, generalized anxiety disorder and depression, benign palpitations, GERD, osteoporosis, and a chronic right occipital lobe CVA. She was referred to [facility] for evaluation and management of multiple electrolyte abnormalities. Patient was treated for similar electrolyte abnormalities during hospitalization December of 2020. 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 Patient was treated subsequently with chemotherapy followed by tamoxifen which after 1 year was converted to a nasty is all. She completed 10 years of Arimidex in 2019. she continues to follow in the oncology clinic with management of a chronic normochromic normocytic anemia. Prior evaluation demonstrating vitamin B12 as well as iron deficiency. She is maintained on Fosamax, calcium, and vitamin-D for osteoporosis. In 2018 she was treated for chronic prosthetic joint infection. Right total hip arthroplasty was performed in 2014 with revision in 2016. in December the patient presented with acute memory loss and confusion. Serum magnesium was found to be 0.7 at that time with an associated mild hypokalemia and hypocalcemia. She was having some stool losses prior to admission. It is noted that the patient has had a notable weight loss over the past 9 months. She denies anorexia. Appetite has been fair. There is no significant out history of alcohol use. Patient had been maintained on a PPI which has now been held. She is not currently having any diarrhea. She does not take any diuretics. Electrolyte abnormalities are improving with appropriate replacement. EKG documenting normal sinus rhythm with a QTC of 448. Allergies Allergy/AdvReac Type Severity Reaction Status Date / Time adhesive AdvReac Mild HIVES Verified 05/11/21 19:44 Home Medications Medication Instructions Recorded Confirmed Type omeprazole 40 mg capsule,delayed 40 mg PO QAM #30 cap 12/31/20 05/11/21 Rx release venlafaxine 75 mg capsule,extended 225 mg PO HS #90 cap 03/30/21 05/11/21 Rx release 24 hr alendronate 70 mg tablet (Fosamax) 70 mg PO WK #12 tab 04/14/21 05/11/21 Rx aspirin 81 mg tablet,delayed 81 mg PO QAM #30 tab 04/14/21 05/11/21 Rx release cephalexin 500 mg capsule 500 mg PO Q12H #60 cap 04/14/21 05/11/21 Rx doxycycline hyclate 100 mg 100 mg PO BID #60 tab 04/14/21 05/11/21 Rx tablet,delayed release metoprolol succinate 25 mg 25 mg PO QAM #90 tab 04/14/21 05/11/21 Rx tablet,extended release 24 hr Lactobacillus acidophilus 10 10,000 mmu cells PO HS 05/11/21 05/11/21 History billion cell capsule (Probiotic) atorvastatin 10 mg tablet 10 mg PO HS 05/11/21 05/11/21 History Patient History Medical History Acute confusion Arthralgia of multiple sites Breast cancer (~03/2009) Dislocation of hip prosthesis Elevated troponin History of fracture of right hip Surgical History H/O breast surgery H/O section H/O hysterectomy for benign disease H/O left mastectomy H/O: hysterectomy History of hip surgery [place] of right hip [place] [facility] [place] of revision of total hip arthroplasty History of tonsillectomy Hx of cholecystectomy Family History Mother Colon cancer Hypertension Osteoporosis Thyroid disorder Father , age 77 Coronary heart disease Stroke , Onset Age: 77 Daughter , age 30 Ovarian cancer Breast cancer , Onset Age: 30 Social History Smoking Status: Former smoker Second Hand Exposure: No; Hx Alcohol Use: No Hx Substance Use: No Preferred Language: Azeri Communication Ability: Effective Visual Impairment: No Limitations Hearing Ability: Normal Sound Editor Required: No Beliefs That Will Affect Care: None marital status: single Current Living Situation: Alone current occupational status: employed Feels Safe at Home: Yes Childhood Exposure to Second-Hand Smoke: No Physical Activity Frequency: 1-2 Times per Week Physical Activity Frequency Comment: Ireggular Seatbelt Use: always Sunscreen Use: Yes Assistive Devices: None Review of Systems Constitutional: + fatigue, + weakness and + weight loss; no weight gain and no problem reported Eyes: no problem reported Ear, Nose, Mouth, Throat: no problem reported Respiratory: no problem reported Cardiovascular: no problem reported Gastrointestinal: no problem reported Musculoskeletal: no problem reported Integumentary: no problem reported Neurologic: no problem reported Psychiatric: no problem reported Endocrine: no problem reported Hematologic / Lymphatic: no problem reported Physical Exam Constitutional: well developed; no acute distress Eyes: no scleral abnormality and no corneal abnormality ENMT: Mouth: no oral mucosal abnormality and oral mucous membranes not dry Neck: normal visual inspection and trachea midline Respiratory: normal respiratory effort Auscultation: lungs clear to auscultation bilaterally Cardiovascular: Rate/Rhythm: regular rate Heart Sounds: normal S1 and normal S2 Extremities: no edema Musculoskeletal: Extremities: no cyanosis and no clubbing Skin: normal turgor; no lesions Neurologic: Motor/Sensory: no tremor and no asterixis Psychiatric: Orientation: alert and oriented x 3 Results & Data ([facility]) Vital Signs (Past 12 Hours) Vital Signs Temp Pulse Resp BP BP Pulse Ox 05/12/21 15:28 36.8 C 89 16 175/87 H 172/80 H 97 05/12/21 07:19 36.5 C 87 16 159/75 H 96 Laboratory Results Laboratory Results - last 24 hr 05/11/21 05/11/21 05/11/21 19:00 19:20 19:20 WBC 8.67 RBC 4.44 Hgb 11.3 L Hct 36.0 L MCV 81.1 MCH 25.5 MCHC 31.4 L RDW Std Deviation 46.5 H RDW Coeff of Blaire 15.7 H Plt Count 354 MPV 11.3 H Immature Gran % (Auto) 0.7 Neut % (Auto) 62.6 Lymph % (Auto) 26.2 [place] % (Auto) 8.5 Eos % (Auto) 1.8 Baso % (Auto) 0.2 Neut # (Auto) 5.42 Lymph # (Auto) 2.27 [place] # (Auto) 0.74 H Eos # (Auto) 0.16 Baso # (Auto) 0.02 Immature Gran # (Auto) 0.06 H Sodium 142 Potassium 3.0 L Chloride 105 Carbon Dioxide 23 Anion Gap 14 H BUN 21 Creatinine 0.83 Est Cr Clr Drug Dosing 44.9 Est GFR ( Amer) 84.6 Est GFR (Non-Af Amer) 73.0 BUN/Creatinine Ratio 25.3 H Glucose 97 Calcium 6.3 L Ionized Calcium Phosphorus 4.0 Magnesium < 0.5 L* Transferrin Total Bilirubin 0.5 Direct Bilirubin AST 12 L ALT 10 Alkaline Phosphatase 130 H Total Protein 7.2 Albumin 3.5 Globulin 3.7 Albumin/Globulin Ratio 0.9 25-OH Vitamin D Total TSH PTH Intact PTH Related Protein Urine Color Urine Appearance Urine pH Ur Specific [place] Urine Protein Urine Glucose (UA) Urine Ketones Urine Blood Urine Nitrite Urine Bilirubin Urine Urobilinogen Ur Leukocyte Esterase Hepatitis C Ab Screen SARS-CoV-2, RNA, NAAT NEGATIVE 05/11/21 05/11/21 05/11/21 19:20 19:20 20:45 WBC RBC Hgb Hct MCV MCH MCHC RDW Std Deviation RDW Coeff of Blaire Plt Count MPV Immature Gran % (Auto) Neut % (Auto) Lymph % (Auto) [place] % (Auto) Eos % (Auto) Baso % (Auto) Neut # (Auto) Lymph # (Auto) [place] # (Auto) Eos # (Auto) Baso # (Auto) Immature Gran # (Auto) Sodium Potassium Chloride Carbon Dioxide Anion Gap BUN Creatinine Est Cr Clr Drug Dosing Est GFR ( Amer) Est GFR (Non-Af Amer) BUN/Creatinine Ratio Glucose Calcium Ionized Calcium Phosphorus Magnesium Transferrin Total Bilirubin Direct Bilirubin AST ALT Alkaline Phosphatase Total Protein Albumin Globulin Albumin/Globulin Ratio 25-OH Vitamin D Total 49.6 TSH 2.641 PTH Intact 51.0 PTH Related Protein Urine Color Urine Appearance Urine pH Ur Specific [place] Urine Protein Urine Glucose (UA) Urine Ketones Urine Blood Urine Nitrite Urine Bilirubin Urine Urobilinogen Ur Leukocyte Esterase Hepatitis C Ab Screen SARS-CoV-2, RNA, NAAT 05/12/21 05/12/21 05/12/21 05:04 06:49 06:49 WBC 7.64 RBC 4.38 Hgb 11.0 L Hct 35.3 L MCV 80.6 MCH 25.1 MCHC 31.2 L RDW Std Deviation 45.6 RDW Coeff of Blaire 15.8 H Plt Count 340 MPV 11.4 H Immature Gran % (Auto) 0.5 Neut % (Auto) 75.9 Lymph % (Auto) 10.9 [place] % (Auto) 10.1 Eos % (Auto) 2.5 Baso % (Auto) 0.1 Neut # (Auto) 5.80 Lymph # (Auto) 0.83 L [place] # (Auto) 0.77 H Eos # (Auto) 0.19 Baso # (Auto) 0.01 Immature Gran # (Auto) 0.04 H Sodium 139 Potassium 3.2 L Chloride 107 Carbon Dioxide 21 Anion Gap 11 BUN 15 Creatinine 0.68 Est Cr Clr Drug Dosing 54.7 Est GFR ( Amer) 104.9 Est GFR (Non-Af Amer) 90.5 BUN/Creatinine Ratio 22.1 H Glucose 123 H Calcium 6.9 L Ionized Calcium Phosphorus Magnesium 2.6 H Transferrin 116 L Total Bilirubin 0.5 Direct Bilirubin 0.1 AST 12 L ALT 8 Alkaline Phosphatase 125 H Total Protein 6.6 Albumin 3.1 L Globulin Albumin/Globulin Ratio 25-OH Vitamin D Total TSH PTH Intact PTH Related Protein Urine Color Yellow Urine Appearance Clear Urine pH 7.5 Ur Specific [place] 1.006 Urine Protein Negative Urine Glucose (UA) Negative Urine Ketones Negative Urine Blood Negative Urine Nitrite Negative Urine Bilirubin Negative Urine Urobilinogen Negative Ur Leukocyte Esterase Negative Hepatitis C Ab Screen SARS-CoV-2, RNA, NAAT 05/12/21 05/12/21 05/12/21 06:49 06:49 06:49 WBC RBC Hgb Hct MCV MCH MCHC RDW Std Deviation RDW Coeff of Blaire Plt Count MPV Immature Gran % (Auto) Neut % (Auto) Lymph % (Auto) [place] % (Auto) Eos % (Auto) Baso % (Auto) Neut # (Auto) Lymph # (Auto) [place] # (Auto) Eos # (Auto) Baso # (Auto) Immature Gran # (Auto) Sodium Potassium Chloride Carbon Dioxide Anion Gap BUN Creatinine Est Cr Clr Drug Dosing Est GFR ( Amer) Est GFR (Non-Af Amer) BUN/Creatinine Ratio Glucose Calcium Ionized Calcium 0.92 L Phosphorus 2.9 D Magnesium Transferrin Total Bilirubin Direct Bilirubin AST ALT Alkaline Phosphatase Total Protein Albumin Globulin Albumin/Globulin Ratio 25-OH Vitamin D Total TSH PTH Intact PTH Related Protein Urine Color Urine Appearance Urine pH Ur Specific [place] Urine Protein Urine Glucose (UA) Urine Ketones Urine Blood Urine Nitrite Urine Bilirubin Urine Urobilinogen Ur Leukocyte Esterase Hepatitis C Ab Screen Neg SARS-CoV-2, RNA, NAAT 05/12/21 09:55 WBC RBC Hgb Hct MCV MCH MCHC RDW Std Deviation RDW Coeff of Blaire Plt Count MPV Immature Gran % (Auto) Neut % (Auto) Lymph % (Auto) [place] % (Auto) Eos % (Auto) Baso % (Auto) Neut # (Auto) Lymph # (Auto) [place] # (Auto) Eos # (Auto) Baso # (Auto) Immature Gran # (Auto) Sodium Potassium Chloride Carbon Dioxide Anion Gap BUN Creatinine Est Cr Clr Drug Dosing Est GFR ( Amer) Est GFR (Non-Af Amer) BUN/Creatinine Ratio Glucose Calcium Ionized Calcium Phosphorus Magnesium Transferrin Total Bilirubin Direct Bilirubin AST ALT Alkaline Phosphatase Total Protein Albumin Globulin Albumin/Globulin Ratio 25-OH Vitamin D Total TSH PTH Intact PTH Related Protein Pending Urine Color Urine Appearance Urine pH Ur Specific [place] Urine Protein Urine Glucose (UA) Urine Ketones Urine Blood Urine Nitrite Urine Bilirubin Urine Urobilinogen Ur Leukocyte Esterase Hepatitis C Ab Screen SARS-CoV-2, RNA, NAAT PG Care Time/CCT Total # of Minutes Spent Total Time Spent with Patient: Total time spent is greater than 50% in coordination of care (as documented) at patient's floor/unit and/or counseling patient: Coding Level of Care Code 30031 Inpt Consult Level 4 Diagnoses Hypomagnesemia E83.42 Hypocalcemia E83.51 Hypokalemia E87.6
[2021-05-12 18:33] LABS: Albumin Level 3.2 gm/dl (3.4-5.0); BUN Creatinine Ratio 20.8 (10-20); Creatinine Clr Calc Pharmacy 51.7 ml/min; Est GFR (African American) 100.4 ml/min; Est GFR (Non-African American) 86.7 ml/min; Magnesium 2.6 mg/dl (1.7-2.4); Phosphorus 3.1 mg/dl (2.5-4.9); Potassium 3.3 mmol/L (3.5-5.1)
--- NOTE | 2021-05-13 06:13 | Electrocardiogram Report ---
Test Reason : Blood Pressure : / mmHG Vent. Rate : 075 BPM Atrial Rate : 075 BPM P-R Int : 128 ms QRS Dur : 080 ms QT Int : 402 ms P-R-T Axes : 056 031 002 degrees QTc Int : 448 ms Poor data quality, interpretation may be adversely affected Normal sinus rhythm Nonspecific ST abnormality Abnormal ECG When compared with ECG of 26-DEC-2020 05:51, No significant change was found Confirmed by Fermin Dai ([id number]) on 05/13/2021 6:12:53 AM Referred By: REFERRED SELF Confirmed By:Fermin Dai
[2021-05-13 07:52] LABS: Basophils # (auto) 0.01 K/uL (0-0.2); Basophils % (auto) 0.1 %; Eosinophils # (auto) 0.17 K/uL (0-0.5); Eosinophils % (auto) 2.4 %; Hematocrit (blood only) 34.9 % (37-47); Hemoglobin 10.9 g/dL (12.0-16.0); Immature Granulocytes # (auto) 0.02 K/uL (0.00-0.02); Immature Granulocytes % (auto) 0.3 %; Lymphocytes # (auto) 1.03 K/uL (1.2-3.4); Lymphocytes % (auto) 14.7 %; Mean Corpuscular Hemoglobin 25.2 pg (25-34); Mean Corpuscular Hgb Conc 31.2 g/dL (32-36); Mean Corpuscular Volume 80.8 fL (80-100); Mean Platelet Volume 10.5 fL (7.4-10.4); Monocytes # (auto) 0.75 K/uL (0.11-0.59); Monocytes % (auto) 10.7 %; Neutrophils # (auto) 5.01 K/uL (1.4-6.5); Neutrophils % (auto) 71.8 %; Platelet Count 324 K/uL (130-400); RDW Coefficient of Variation 15.8 % (11.5-14.5); RDW Standard Deviation 46.6 fL (36.4-46.3); Red Blood Count 4.32 M/uL (4.2-5.4); White Blood Count 6.99 K/uL (4.8-10.8)
[2021-05-13] MEDS: METOPROLOL SUCC 25MG EXT REL TAB PO SCH (08:14)
[2021-05-13] MEDS: ASPIRIN 81 MG ECTAB PO SCH (08:15)
[2021-05-13] MEDS: cephALEXin 500 MG CAP PO SCH ×2 (08:15→19:31)
[2021-05-13] MEDS: DOXYCYCLINE HYCLATE 100 MG CAP PO SCH ×2 (08:15→19:31)
[2021-05-13] MEDS: FAMOTIDINE 20 MG in SYRINGE 3 ML IV SCH (08:15)
[2021-05-13 08:27] LABS: Albumin Globulin Ratio 0.9 (0.9-2); Albumin Level 3.1 gm/dl (3.4-5.0); BUN Creatinine Ratio 16.7 (10-20); Bilirubin,Total 0.6 mg/dl (0.2-1.0); Calcium 7.1 mg/dl (8.5-10.1); Creatinine Clr Calc Pharmacy 51.7 ml/min; Est GFR (African American) 100.4 ml/min; Est GFR (Non-African American) 86.7 ml/min; Globulin 3.6 gm/dl (2.5-4.0); Magnesium 1.7 mg/dl (1.7-2.4); Phosphorus 1.7 mg/dl (2.5-4.9); Potassium 3.8 mmol/L (3.5-5.1); Total Protein 6.7 gm/dl (6.0-8.3)
[2021-05-13 08:35] LABS: Cortisol AM 18.18 mcg/dl (6.2-22.6)
[2021-05-13 08:49] LABS: Folate (Folic Acid) 3.75 ng/ml (>5.38)
[2021-05-13] MEDS ORDERED: POTASSIUM PHOS 3 MMOL/1 ML INFUSION IV STA (09:02)
[2021-05-13] MEDS ORDERED: STAT IV STA (09:03)
[2021-05-13] MEDS ORDERED: SODIUM PHOSPHATE 3 MMOL/1 ML INFUSION IV STA (09:03)
--- NOTE | 2021-05-13 09:13 | Hospitalist Progress Note ---
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 Patient with hypocalcemia - serum Ca=6.3, Albumin=3.5. Ionized calcium low at 0.83. Normal Vitamin D level at 49.6 and normal intact PTH level at 51. pth-related peptide pending Patient with prior hypocalcemia - ionized calcium 0.78 in 12/2020 as well as Mag 0.7 at that time * Has reports of episodic confusion which may be secondary to hypocalcemia? Presently she is AA&O x 4, appropriate. She denies paresthesias, cramping, weakness, myalgias or seizure. No EKG/conduction abnormalities noted on EKG. * Suspect multifactorial - patient reports poor diet so may be nutritional deficiency. Also with severe hypomagnesemia which can contribute to hypocalcemia. Patient is also on bisphosphonate therapy as well as PPI. Normal PTH level at 51 but would expect elevated level in setting of hypocalcemia - ?degree of hypoparathyroidism as well. 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 No further to be given Phenergan prn nausea/vomiting -- given 1 x now this morning Checking PTH -related peptide for further delineation K still 3.2-- ordered additional 20meq PO, 20meq IV if unable to tolerate PO given n/v this morning ?Underlying type Gitelman/barter syndrome with continued hypomagnesemia. Holding PPI as could also be contributing. Started pepcid daily -- no reflux symptoms reported Consider daily supplementation at discharge to prevent continued hypomagnesemia -- see below Will consult nephrology for further eval salt-losing tubulopathies -- appreciate assistance 05/13 Ca 7.1, ionized 0.98, albumin 3.1 --> corrected 7.8 Ordered 2gm IV calcium again today Phos low 1.7 -- Kphos replacement ordered Did have slightly low Bicab on BMP this morning, no diarrhea/vomiting reported, no abd pain Folic acid checked per Neuro notes, low 3.75 ---> started 1mg daily. 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 As above, could be contributing to additional electrolyte derangements as well. ?Poor dietary intake. Patient denies diarrhea. -Repletion - Mg x 6gm IV -Repeat Mg level in AM with additional repletion as needed -Recommend outpatient PO supplementation and improved dietary intake Repeat mag wnl this morning --> consider PO supplementation at discharge vs amiloride based on urine studies as ordered by nephrology No increase in reflux symptoms reported and continued on pepcid daily Monitor labs in AM (3) Hypokalemia: Plan: K=3. In setting of hypomagnesemia as above. PO/IV replacement ordered K wnl 3.7 today, mag wnl. AM cortisol not low Urine studies as above for possible underlying RTA type II from prior chemotherapy as above -- monitor (4) Acid reflux: Plan: Chronic. Patient is on Omeprazole which can be contributing to hypomagnesemia -Hold Omeprazole - consider alternative therapy on discharge No reflux symptoms and will continue famotidine IVP while inpatient, consider continuing this at d/c (5) Depression: Plan: Chronic. No issues reported however she DOES NOT TAKE THIS AT HOME ANY LONGER, CONFIRMED WITH PATIENT AND PCP --> DISCONTINUED AT THIS TIME HIGHER DOSE AND COULD HAVE CONTRIBUTED TO n/V day prior (6) Iron deficiency: Plan: Patient with normochromic/normocytic anemia (Hgb=11.3, Hct=36), MCV=81.1. Recently had iron studies completed (05/10/21) which revealed mild elevation in Ferritin at 392.7, low iron level of 22, low unsaturated IBC at 153. Demonstrates chronic disease pattern more than iron deficiency? venofer x 1 as was to get at her visit the other day Folate also low as above -- replacement ordered -Monitor, repeat CBC in AM (7) Stroke: Plan: Prior CVA Dec 2020, followed by Neuro locally Repeat MRI, holter monitor, carotid dopplers without acute findings per most recent note -Continue ASA 81mg po daily -Continue Atorvastatin -- unclear if patient may/may not have been taking this. Last LDL elevated and will need to ensure she is taking properly Also, would need CTA to look at posterior circulation given "chronic occipital" stroke Also, neuro was checking folate level for dementia -- LOW and replacement ordered as well -- continue at discharge Plan: continued inpatient stay/replacement of electrolytes and consultation with nephrology labs in am possible d/c in next 24-48 hours with close outpatient follow up Admission and Anticipated Discharge Date Admission Date: May 11, 2021 Supervising Physician Co-Signing Physician Notes MARCOS Supervision Note: I did not personally see or examine the patient today, but I verified all mar points of MARCOS Lozada's assessment and plan with the following exceptions/additions: Added Vit D 1000 units po once daily at suggestion of Nephro for hypocalcemia Subjective patient evaluated this morning reportedly feeling well does endorse some issues with memory at times had been seen by Neuro in past, discussed note rec for folate level and this was checked and low, replacement ordered. She did receive TCH chemotherapy for her hx breast cancer and as discussed with nephrology, patient could have a [place] toxicity/type 2 RTA from carboplatin and will await urine studies but treatment could involve amiloride for K/mag wasting. No fever, chills, chest pain, shortness of breath, nausea/vomiting or diarrhea at this time. Review of Systems Review of Systems: All systems reviewed & are unremarkable except as noted in HPI & below Physical Exam Physical Exam: General: WN/WD frail elderly woman sitting up in chair, doing word puzzle, no acute distress Psych: alert, oriented x 4, some difficulty with recall (naming, reported intermittent forgetfullness) HEENT: normocephalic, atraumatic, mmm, no JVD, pupils equal and reactive. Resp: CTAB, no w/c/r, on room air CV: RRR, no m/r/g GI: +BS, soft, non-tender, no guarding/rigidity MSK/Neuro: moves all extremities, no focal deficit, speech intact/no droop, strength equal bilaterally. Negative Trousseau's sign/chvostek's sign Results & Data Results & Data ([facility]) Vital Signs (Past 12 Hours) Vital Signs Temp Pulse Resp BP BP Pulse Ox 05/13/21 07:22 36.8 C 77 16 156/78 H 97 05/12/21 22:59 88 163/62 H 05/12/21 22:35 36.8 C 87 17 186/88 H 98 Laboratory Results 05/13/21 05/13/21 05/13/21 Range/Units 07:37 07:37 07:37 WBC 6.99 (4.8-10.8) K/uL RBC 4.32 (4.2-5.4) M/uL Hgb 10.9 L (12.0-16.0) g/dL Hct 34.9 L (37-47) % MCV 80.8 (80-100) fL MCH 25.2 (25-34) pg MCHC 31.2 L (32-36) g/dL RDW Std Deviation 46.6 H (36.4-46.3) fL RDW Coeff of Blaire 15.8 H (11.5-14.5) % Plt Count 324 (130-400) K/uL MPV 10.5 H (7.4-10.4) fL Immature Gran % (Auto) 0.3 % Neut % (Auto) 71.8 % Lymph % (Auto) 14.7 % [place] % (Auto) 10.7 % Eos % (Auto) 2.4 % Baso % (Auto) 0.1 % Neut # (Auto) 5.01 (1.4-6.5) K/uL Lymph # (Auto) 1.03 L (1.2-3.4) K/uL [place] # (Auto) 0.75 H (0.11-0.59) K/uL Eos # (Auto) 0.17 (0-0.5) K/uL Baso # (Auto) 0.01 (0-0.2) K/uL Immature Gran # (Auto) 0.02 (0.00-0.02) K/uL Sodium 136 (136-145) mmol/L Potassium 3.8 (3.5-5.1) mmol/L Chloride 107 (98-107) mmol/L Carbon Dioxide 20 L (21-32) mmol/L Anion Gap 9 (3-11) BUN 12 (6-23) mg/dl Creatinine 0.72 (0.6-1.2) mg/dl Est Cr Clr Drug Dosing 51.7 ml/min Est GFR ( Amer) 100.4 ml/min Est GFR (Non-Af Amer) 86.7 ml/min BUN/Creatinine Ratio 16.7 (10-20) Glucose 95 (70-99(Fasting)) mg/dl Calcium 7.1 L (8.5-10.1) mg/dl Ionized Calcium 0.98 L (1.12-1.32) mmol/L Phosphorus 1.7 L D (2.5-4.9) mg/dl Magnesium 1.7 (1.7-2.4) mg/dl Total Bilirubin 0.6 (0.2-1.0) mg/dl AST 11 L (13-39) U/L ALT 8 (7-52) U/L Alkaline Phosphatase 126 H (34-104) U/L Total Protein 6.7 (6.0-8.3) gm/dl Albumin 3.1 L (3.4-5.0) gm/dl Globulin 3.6 (2.5-4.0) gm/dl Albumin/Globulin Ratio 0.9 (0.9-2) Folate (>5.38) ng/ml Cortisol AM Sample (6.2-22.6) mcg/dl Ur Random Creatinine mg/dl Ur Random Magnesium 05/13/21 05/13/21 05/13/21 Range/Units 07:37 05:45 05:45 WBC (4.8-10.8) K/uL RBC (4.2-5.4) M/uL Hgb (12.0-16.0) g/dL Hct (37-47) % MCV (80-100) fL MCH (25-34) pg MCHC (32-36) g/dL RDW Std Deviation (36.4-46.3) fL RDW Coeff of Blaire (11.5-14.5) % Plt Count (130-400) K/uL MPV (7.4-10.4) fL Immature Gran % (Auto) % Neut % (Auto) % Lymph % (Auto) % [place] % (Auto) % Eos % (Auto) % Baso % (Auto) % Neut # (Auto) (1.4-6.5) K/uL Lymph # (Auto) (1.2-3.4) K/uL [place] # (Auto) (0.11-0.59) K/uL Eos # (Auto) (0-0.5) K/uL Baso # (Auto) (0-0.2) K/uL Immature Gran # (Auto) (0.00-0.02) K/uL Sodium (136-145) mmol/L Potassium (3.5-5.1) mmol/L Chloride (98-107) mmol/L Carbon Dioxide (21-32) mmol/L Anion Gap (3-11) BUN (6-23) mg/dl Creatinine (0.6-1.2) mg/dl Est Cr Clr Drug Dosing ml/min Est GFR ( Amer) ml/min Est GFR (Non-Af Amer) ml/min BUN/Creatinine Ratio (10-20) Glucose (70-99(Fasting)) mg/dl Calcium (8.5-10.1) mg/dl Ionized Calcium (1.12-1.32) mmol/L Phosphorus (2.5-4.9) mg/dl Magnesium (1.7-2.4) mg/dl Total Bilirubin (0.2-1.0) mg/dl AST (13-39) U/L ALT (7-52) U/L Alkaline Phosphatase (34-104) U/L Total Protein (6.0-8.3) gm/dl Albumin (3.4-5.0) gm/dl Globulin (2.5-4.0) gm/dl Albumin/Globulin Ratio (0.9-2) Folate 3.75 L (>5.38) ng/ml Cortisol AM Sample 18.18 (6.2-22.6) mcg/dl Ur Random Creatinine Pending 42.0 mg/dl Ur Random Magnesium Pending 02/09/22 Range/Units 06:49 WBC (4.8-10.8) K/uL RBC (4.2-5.4) M/uL Hgb (12.0-16.0) g/dL Hct (37-47) % MCV (80-100) fL MCH (25-34) pg MCHC (32-36) g/dL RDW Std Deviation (36.4-46.3) fL RDW Coeff of Blaire (11.5-14.5) % Plt Count (130-400) K/uL MPV (7.4-10.4) fL Immature Gran % (Auto) % Neut % (Auto) % Lymph % (Auto) % [place] % (Auto) % Eos % (Auto) % Baso % (Auto) % Neut # (Auto) (1.4-6.5) K/uL Lymph # (Auto) (1.2-3.4) K/uL [place] # (Auto) (0.11-0.59) K/uL Eos # (Auto) (0-0.5) K/uL Baso # (Auto) (0-0.2) K/uL Immature Gran # (Auto) (0.00-0.02) K/uL Sodium 141 (136-145) mmol/L Potassium 3.3 L (3.5-5.1) mmol/L Chloride 108 H (98-107) mmol/L Carbon Dioxide 21 (21-32) mmol/L Anion Gap 12 H (3-11) BUN 15 (6-23) mg/dl Creatinine 0.72 (0.6-1.2) mg/dl Est Cr Clr Drug Dosing 51.7 ml/min Est GFR ( Amer) 100.4 ml/min Est GFR (Non-Af Amer) 86.7 ml/min BUN/Creatinine Ratio 20.8 H (10-20) Glucose 117 H (70-99(Fasting)) mg/dl Calcium 7.0 L (8.5-10.1) mg/dl Ionized Calcium (1.12-1.32) mmol/L Phosphorus 3.1 (2.5-4.9) mg/dl Magnesium 2.6 H (1.7-2.4) mg/dl Total Bilirubin (0.2-1.0) mg/dl AST (13-39) U/L ALT (7-52) U/L Alkaline Phosphatase (34-104) U/L Total Protein (6.0-8.3) gm/dl Albumin 3.2 L (3.4-5.0) gm/dl Globulin (2.5-4.0) gm/dl Albumin/Globulin Ratio (0.9-2) Folate (>5.38) ng/ml Cortisol AM Sample (6.2-22.6) mcg/dl Ur Random Creatinine mg/dl Ur Random Magnesium PG Care Time/CCT Total # of Minutes Spent Total Time Spent with Patient: Total time spent is greater than 50% in coordination of care (as documented) at patient's floor/unit and/or counseling patient: Coding Level of Care Code 07337 Subseq Hosp Care Lvl 3 Diagnoses Hypocalcemia E83.51 Hypomagnesemia E83.42 Hypokalemia E87.6 Acid reflux K21.9 Depression F32.9 Iron deficiency E61.1 Stroke I63.9
[2021-05-13] MEDS ORDERED: CALCIUM GLUCONATE 10% 2,000 MG in DEXTROSE 5% 50 ML IV ONE (09:15)
[2021-05-13] MEDS ORDERED: POTASSIUM PHOSPHATE 15 MMOL in DEXTROSE 5% 250 ML IV ONE (09:30)
[2021-05-13] MEDS ORDERED: MAGNESIUM SULFATE / D5W 1 GM/100 ML BAG IV ONE (09:30)
[2021-05-13] MEDS ORDERED: IRON SUCROSE 300 MG in SODIUM CHLORIDE 0.9% 250 ML IV ONE (09:30)
[2021-05-13] MEDS: FOLIC ACID 1 MG TAB PO SCH (10:32)
--- NOTE | 2021-05-13 15:29 | Nephrology Progress Note ---
Date of Service May 13, 2021 Assessment & Plan (1) Hypomagnesemia: (2) Hypocalcemia: (3) Hypokalemia: Plan: Electrolytes improving with replacement. Appetite remains fair. Hypokalemia and hypocalcemia may certainly be related to the underlying severe hypomagnesemia. Hypomagnesemia can be attributed to the use of a PPI, GI losses, and I could not exclude possible renal wasting. There is certainly a possible history of possible [place] based renal toxicity and proximal tubule dysfunction. Random urine studies for FeMg+ are pending. Patient did not have glucosuria on her urinalysis. Phosphorus level did drop since yesterday. IV replacement, in addition to additional calcium and magnesium replacement is being provided. Unclear if drop in PO4 could be a manifestation of refeeding. Ai does report a somewhat poor appetite at home. She typically eats a bagel for breakfast and sandwich for lunch but admits that she rarely finishes a whole bagel or sandwich. She did not have a non-anion gap metabolic acidosis previously but HC3 did drop overnight. Thankfully, she is tolerating replacement well. PPI has been discontinued. Fosamax has appropriately been held. Despite normal 25OH D level, a daily D3 supplement would certainly be reasonable. As electrolytes improve, transitioning to PO replacement is encouraged. Amiloride held for now but should be considered as needed to assist BP control or if Mg wasting is confirmed. I discussed the plan of care with Lucille Lozada PA-C today. Admission and Anticipated Discharge Date Admission Date: May 11, 2021 Subjective No acute events overnight. No complaints this AM. Review of Systems Review of Systems: All systems reviewed & are unremarkable except as noted in HPI & below Physical Exam Constitutional: well developed; no acute distress Eyes: no scleral abnormality and no corneal abnormality ENMT: Mouth: no oral mucosal abnormality and oral mucous membranes not dry Neck: normal visual inspection and trachea midline Respiratory: normal respiratory effort Auscultation: lungs clear to auscultation bilaterally Cardiovascular: Rate/Rhythm: regular rate Heart Sounds: normal S1 and normal S2 Extremities: no edema Musculoskeletal: Extremities: no cyanosis and no clubbing Skin: normal turgor; no lesions Neurologic: Motor/Sensory: no tremor and no asterixis Psychiatric: Orientation: alert and oriented x 3 Results & Data ([facility]) Vital Signs (Past 12 Hours) Vital Signs Temp Pulse Resp BP Pulse Ox 02/10/22 07:22 36.8 C 77 16 156/78 H 97 Laboratory Results Laboratory Results - last 24 hr 05/12/21 05/13/21 05/13/21 06:49 05:45 05:45 WBC RBC Hgb Hct MCV MCH MCHC RDW Std Deviation RDW Coeff of Blaire Plt Count MPV Immature Gran % (Auto) Neut % (Auto) Lymph % (Auto) [place] % (Auto) Eos % (Auto) Baso % (Auto) Neut # (Auto) Lymph # (Auto) [place] # (Auto) Eos # (Auto) Baso # (Auto) Immature Gran # (Auto) Sodium 141 Potassium 3.3 L Chloride 108 H Carbon Dioxide 21 Anion Gap 12 H BUN 15 Creatinine 0.72 Est Cr Clr Drug Dosing 51.7 Est GFR ( Amer) 100.4 Est GFR (Non-Af Amer) 86.7 BUN/Creatinine Ratio 20.8 H Glucose 117 H Calcium 7.0 L Ionized Calcium Phosphorus 3.1 Magnesium 2.6 H Total Bilirubin AST ALT Alkaline Phosphatase Total Protein Albumin 3.2 L Globulin Albumin/Globulin Ratio Folate Cortisol AM Sample Ur Random Creatinine 42.0 Pending Ur Random Magnesium Pending 05/13/21 05/13/21 05/13/21 07:37 07:37 07:37 WBC 6.99 RBC 4.32 Hgb 10.9 L Hct 34.9 L MCV 80.8 MCH 25.2 MCHC 31.2 L RDW Std Deviation 46.6 H RDW Coeff of Blaire 15.8 H Plt Count 324 MPV 10.5 H Immature Gran % (Auto) 0.3 Neut % (Auto) 71.8 Lymph % (Auto) 14.7 [place] % (Auto) 10.7 Eos % (Auto) 2.4 Baso % (Auto) 0.1 Neut # (Auto) 5.01 Lymph # (Auto) 1.03 L [place] # (Auto) 0.75 H Eos # (Auto) 0.17 Baso # (Auto) 0.01 Immature Gran # (Auto) 0.02 Sodium 136 Potassium 3.8 Chloride 107 Carbon Dioxide 20 L Anion Gap 9 BUN 12 Creatinine 0.72 Est Cr Clr Drug Dosing 51.7 Est GFR ( Amer) 100.4 Est GFR (Non-Af Amer) 86.7 BUN/Creatinine Ratio 16.7 Glucose 95 Calcium 7.1 L Ionized Calcium Phosphorus 1.7 L D Magnesium 1.7 Total Bilirubin 0.6 AST 11 L ALT 8 Alkaline Phosphatase 126 H Total Protein 6.7 Albumin 3.1 L Globulin 3.6 Albumin/Globulin Ratio 0.9 Folate 3.75 L Cortisol AM Sample 18.18 Ur Random Creatinine Ur Random Magnesium 05/13/21 07:37 WBC RBC Hgb Hct MCV MCH MCHC RDW Std Deviation RDW Coeff of Blaire Plt Count MPV Immature Gran % (Auto) Neut % (Auto) Lymph % (Auto) [place] % (Auto) Eos % (Auto) Baso % (Auto) Neut # (Auto) Lymph # (Auto) [place] # (Auto) Eos # (Auto) Baso # (Auto) Immature Gran # (Auto) Sodium Potassium Chloride Carbon Dioxide Anion Gap BUN Creatinine Est Cr Clr Drug Dosing Est GFR ( Amer) Est GFR (Non-Af Amer) BUN/Creatinine Ratio Glucose Calcium Ionized Calcium 0.98 L Phosphorus Magnesium Total Bilirubin AST ALT Alkaline Phosphatase Total Protein Albumin Globulin Albumin/Globulin Ratio Folate Cortisol AM Sample Ur Random Creatinine Ur Random Magnesium PG Care Time/CCT Total # of Minutes Spent Total Time Spent with Patient: Total time spent is greater than 50% in coordination of care (as documented) at patient's floor/unit and/or counseling patient: Coding Level of Care Code 77072 Subseq Hosp Care Lvl 3 Diagnoses Hypomagnesemia E83.42 Hypocalcemia E83.51 Hypokalemia E87.6
[2021-05-13] MEDS: ATORVASTATIN 10 MG TAB PO SCH (19:33)
[2021-05-14 06:46] LABS: Hematocrit (blood only) 35.2 % (37-47); Hemoglobin 10.6 g/dL (12.0-16.0); Mean Corpuscular Hemoglobin 24.4 pg (25-34); Mean Corpuscular Hgb Conc 30.1 g/dL (32-36); Mean Corpuscular Volume 80.9 fL (80-100); Mean Platelet Volume 10.9 fL (7.4-10.4); Platelet Count 333 K/uL (130-400); RDW Coefficient of Variation 15.9 % (11.5-14.5); RDW Standard Deviation 47.1 fL (36.4-46.3); Red Blood Count 4.35 M/uL (4.2-5.4); White Blood Count 6.74 K/uL (4.8-10.8)
[2021-05-14 07:10] LABS: Albumin Globulin Ratio 0.9 (0.9-2); Bilirubin,Total 0.5 mg/dl (0.2-1.0); Calcium 7.6 mg/dl (8.5-10.1); Creatinine Clr Calc Pharmacy 43.8 ml/min; Est GFR (African American) 82.2 ml/min; Est GFR (Non-African American) 70.9 ml/min; Globulin 3.3 gm/dl (2.5-4.0); Magnesium 1.7 mg/dl (1.7-2.4); Phosphorus 2.2 mg/dl (2.5-4.9); Total Protein 6.3 gm/dl (6.0-8.3)
[2021-05-14] MEDS: FAMOTIDINE 20 MG in SYRINGE 3 ML IV SCH (08:14)
[2021-05-14] MEDS: ASPIRIN 81 MG ECTAB PO SCH (08:15)
[2021-05-14] MEDS: METOPROLOL SUCC 25MG EXT REL TAB PO SCH (08:15)
[2021-05-14] MEDS: CHOLECALCIFEROL 1,000 UNITS 25 MCG TAB PO SCH (08:15)
[2021-05-14] MEDS: DOXYCYCLINE HYCLATE 100 MG CAP PO SCH ×2 (08:15→20:18)
[2021-05-14] MEDS: cephALEXin 500 MG CAP PO SCH ×2 (08:15→20:18)
[2021-05-14] MEDS: FOLIC ACID 1 MG TAB PO SCH (08:15)
[2021-05-14] MEDS ORDERED: POTASSIUM PHOS 3 MMOL/1 ML INFUSION IV STA (08:51)
[2021-05-14] MEDS ORDERED: STAT IV STA (08:56)
--- NOTE | 2021-05-14 08:58 | Hospitalist Progress Note ---
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 Patient with hypocalcemia - serum Ca=6.3, Albumin=3.5. Ionized calcium low at 0.83. Normal Vitamin D level at 49.6 and normal intact PTH level at 51. pth-related peptide pending Patient with prior hypocalcemia - ionized calcium 0.78 in 12/2020 as well as Mag 0.7 at that time (Has reports of episodic confusion which may be secondary to hypocalcemia? Presently she is AA&O x 4, appropriate. She denies paresthesias, cramping, weakness, myalgias or seizure. No EKG/conduction abnormalities noted on EKG. ) Suspect multifactorial - patient reports poor diet so may be nutritional deficiency. Also with severe hypomagnesemia which can contribute to hypocalcemia. Patient is also on bisphosphonate therapy as well as PPI. Normal PTH level at 51 but would expect elevated level in setting of hypocalcemia - ?degree of hypoparathyroidism as well. * ?Possible malabsorption vs poor nutrition - patient is B12 and Iron deficient and demonstrating multiple electrolyte derangements as well - hypo Ca, K, Mg as well as FOLATE deficiency * No hx gastric bypass Recommend outpatient oral supplementation, improved dietary intake and routine laboratory monitoring Ordered order boost supplementation (has received and dedicated to taking at least 1-2 daily at discharge, significant other already ordered) and rec patient to start MVI at d/c Vit D 49.6 -- on alendronate 70mg weekly [employer]. 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) -- Started Vitamin D supplementation 1000 IU daily Nephrology consulted given repeat issues, did get [place] based IV chemo for hx breast ca and could have RTA type II from such vs renal salt loosing tubulopathy --> Urine studies pending but can have f/u with Nephrology at discharge Continued replacement of calcium/potassium/magnesium --> Discontinued PPI use, as likely contributing to low mag (<0.5 on admission) and utilizing Pepcid -- Additional 1gm IV calcium, 1gm IV mag given borderline Kphos for low phos but improvement compared to days prior start amiloride 5mg daily, to start magnesium BID PO at d/c but will need to take 2hr prior or 4hr after her doxycycline and will need specified on d/c instruction --> Also would dc 1 tablet K Na phos tablet per nephrology and can have close f/u d/c Monitoring overnight and hopeful for d/c in AM Updated significant other at bedside this afternoon. Has very extensive medication regimen and lists and calls patient 7x/day to ensure taking medications as directed. Ensured will have details for instructions for timing and new meds/discontinued medications at discharge. He already ordered case of boost and encouraging compliance and increased dietary intake Also spoke with CM and arranged for home health/therapy Will need close f/u PCP and Nephrology in the next 7-10 days with repeat labs (2) Hypomagnesemia: Plan: Mg = <0.05. As above, could be contributing to additional electrolyte derangements as well. ?Poor dietary intake. Patient denies diarrhea. Repletion with IV, d/c PPI and use pepcid at d/c for reflux To continue PO BID supplementation at discharge (3) Hypokalemia: Plan: K=3. In setting of hypomagnesemia as above. PO/IV replacement ordered AM cortisol not low, checked due to HTN/hypokalemia Urine studies as above for possible underlying RTA type II from prior chemotherapy as above -- monitor (4) Acid reflux: Plan: Chronic. Patient is on Omeprazole which can be contributing to hypomagnesemia -Hold Omeprazole - continue pepcid at discharge (5) Depression: Plan: Chronic. No issues reported however she DOES NOT TAKE THIS AT HOME ANY LONGER, CONFIRMED WITH PATIENT AND PCP --> DISCONTINUED AT THIS TIME HIGHER DOSE AND COULD HAVE CONTRIBUTED TO n/V 3 day prior (6) Iron deficiency: Plan: Patient with normochromic/normocytic anemia (Hgb=11.3, Hct=36), MCV=81.1. Recently had iron studies completed (05/10/21) which revealed mild elevation in Ferritin at 392.7, low iron level of 22, low unsaturated IBC at 153. Demonstrates chronic disease pattern more than iron deficiency? venofer x 1 as was to get at her visit the other day Folate also low as above -- replacement ordered -Monitor, repeat CBC in AM (7) Stroke: Plan: Prior CVA Dec 2020, followed by Neuro locally Repeat MRI, holter monitor, carotid dopplers without acute findings per most recent note Continue ASA 81mg po daily Continue Atorvastatin Also, would need CTA to look at posterior circulation given "chronic occipital" stroke Also, neuro was checking folate level for dementia -- LOW and replacement ordered as well -- continue at discharge BP control --> had been on higher end/dehydration/poor PO intake. Improved today and started on amiloride 5mg daily. Monitor but may also consider increased dose of metoprolol to 37.5mg daily given elevated HR (regular) Plan: monitoring overnight, has been ambulating to bathroom/no calf tenderness or swelling but will order dose of lovenox x 1 for today for DVT prophylaxis hopeful d/c in AM with close f/u nephrology/pcp at discharge Admission and Anticipated Discharge Date Admission Date: May 11, 2021 Supervising Physician Co-Signing Physician Notes PA Supervision Note: I did not personally see or examine the patient today, but I verified all mar points of MARCOS Lozada's assessment and plan with the following exceptions/additions: none Subjective Patient evaluated this morning doing well no issues discussed new medication amiloride and replacement of electrolytes and hopeful for d/c in [employer]in[employer] tomorrow significant other going to stay with her for a couple of days, CM arranged for home health and therapy to begin next week. no fever, chills, chest pain, shortness of breath improvement of appetite and moving her bowels without issue questions/concerns addressed at this time. Review of Systems Review of Systems: All systems reviewed & are unremarkable except as noted in HPI & below Physical Exam Physical Exam: General: WN/WD frail elderly woman sitting up in bed, no acute distress Psych: alert, oriented x 3, some difficulty with recall (naming, reported intermittent forgetfullness) HEENT: normocephalic, atraumatic, mmm, no JVD, pupils equal and reactive. Resp: CTAB, no w/c/r, on room air CV: RRR, no m/r/g GI: +BS, soft, non-tender, no guarding/rigidity MSK/Neuro: moves all extremities, no focal deficit, speech intact/no droop, strength equal bilaterally. alert, oriented x 3 with period of forgetfullness Negative Trousseau's sign/chvostek's sign Results & Data Results & Data ([facility]) Vital Signs (Past 12 Hours) Vital Signs Temp Pulse Resp BP BP Pulse Ox 05/14/21 07:50 36.7 C 106 H 18 137/95 98 05/13/21 23:50 36.8 C 84 18 155/78 H 96 Laboratory Results 05/14/21 05/14/21 Range/Units 06:30 06:30 WBC 6.74 (4.8-10.8) K/uL RBC 4.35 (4.2-5.4) M/uL Hgb 10.6 L (12.0-16.0) g/dL Hct 35.2 L (37-47) % MCV 80.9 (80-100) fL MCH 24.4 L (25-34) pg MCHC 30.1 L (32-36) g/dL RDW Std Deviation 47.1 H (36.4-46.3) fL RDW Coeff of Blaire 15.9 H (11.5-14.5) % Plt Count 333 (130-400) K/uL MPV 10.9 H (7.4-10.4) fL Sodium 138 (136-145) mmol/L Potassium 4.0 (3.5-5.1) mmol/L Chloride 109 H (98-107) mmol/L Carbon Dioxide 22 (21-32) mmol/L Anion Gap 7 (3-11) BUN 17 (6-23) mg/dl Creatinine 0.85 (0.6-1.2) mg/dl Est Cr Clr Drug Dosing 43.8 ml/min Est GFR ( Amer) 82.2 ml/min Est GFR (Non-Af Amer) 70.9 ml/min BUN/Creatinine Ratio 20.0 (10-20) Glucose 90 (70-99(Fasting)) mg/dl Calcium 7.6 L (8.5-10.1) mg/dl Phosphorus 2.2 L (2.5-4.9) mg/dl Magnesium 1.7 (1.7-2.4) mg/dl Total Bilirubin 0.5 (0.2-1.0) mg/dl AST 10 L (13-39) U/L ALT 8 (7-52) U/L Alkaline Phosphatase 124 H (34-104) U/L Total Protein 6.3 (6.0-8.3) gm/dl Albumin 3.0 L (3.4-5.0) gm/dl Globulin 3.3 (2.5-4.0) gm/dl Albumin/Globulin Ratio 0.9 (0.9-2) PG Care Time/CCT Total # of Minutes Spent Total Time Spent with Patient: Total time spent is greater than 50% in coordination of care (as documented) at patient's floor/unit and/or counseling patient: Coding Level of Care Code 13411 Subseq Hosp Care Lvl 3 Diagnoses Hypocalcemia E83.51 Hypomagnesemia E83.42 Hypokalemia E87.6 Acid reflux K21.9 Depression F32.9 Iron deficiency E61.1 Stroke I63.9
[2021-05-14] MEDS ORDERED: MAGNESIUM SULFATE / D5W 1 GM/100 ML BAG IV ONE (09:15)
[2021-05-14] MEDS ORDERED: CALCIUM GLUCONATE 10% 1,000 MG in DEXTROSE 5% 50 ML IV ONE (09:15)
[2021-05-14] MEDS ORDERED: POTASSIUM PHOSPHATE 9 MMOL in SODIUM CHLORIDE 0.9% 250 ML IV ONE (09:15)
[2021-05-14] MEDS ORDERED: METOPROLOL SUCC 25MG EXT REL TAB PO ONE (09:30)
[2021-05-14] MEDS: aMILoride HCL 5 MG TAB PO SCH (09:57)
--- NOTE | 2021-05-14 10:33 | Nephrology Progress Note ---
Date of Service May 14, 2021 Assessment & Plan (1) Hypomagnesemia: (2) Hypocalcemia: (3) Hypokalemia: Plan: Electrolytes improving with replacement. Appetite somewhat improved. Ai is very interested in the idea of discharge home with close outpatient follow up. Urine studies are still pending. In the interim, I would suggest adding amiloride 5 mg daily. I would suggest PO magnesium oxide 400 mg twice daily and a daily tablet of Phos NaK post discharge. Repeat labs next week. Follow up with me in the nephrology clininc in 2-3 weeks. Plan of care was discussed with Lucille Lozada PA-C this AM. Hypokalemia and hypocalcemia may certainly be related to the underlying severe hypomagnesemia. 25OH D acceptable. But a D3 supplement would be appropriate (~1000 units daily). Hypomagnesemia can be attributed to the use of a PPI, GI losses, and I could not exclude possible renal wasting. There is certainly a possible history of possible [place] based renal toxicity and proximal tubule dysfunction. Random urine studies for FeMg+ are pending. Patient did not have glucosuria on her urinalysis. Phosphorus level did drop since admission. IV replacement, in addition to additional calcium and magnesium replacement is being provided. Unclear if drop in PO4 could be a manifestation of refeeding. Ai does report a somewhat poor appetite at home. She typically eats a bagel for breakfast and sandwich for lunch but admits that she rarely finishes a whole bagel or sandwich. HCO3 acceptable today. PPI has been discontinued. Fosamax has appropriately been held. Admission and Anticipated Discharge Date Admission Date: May 11, 2021 Subjective No acute events overnight. No complaints this AM. Review of Systems Review of Systems: All systems reviewed & are unremarkable except as noted in HPI & below Physical Exam Constitutional: well developed; no acute distress Eyes: no scleral abnormality and no corneal abnormality ENMT: Mouth: no oral mucosal abnormality and oral mucous membranes not dry Neck: normal visual inspection and trachea midline Respiratory: normal respiratory effort Auscultation: lungs clear to auscultation bilaterally Cardiovascular: Rate/Rhythm: regular rate Heart Sounds: normal S1 and normal S2 Extremities: no edema Musculoskeletal: Extremities: no cyanosis and no clubbing Skin: normal turgor; no lesions Neurologic: Motor/Sensory: no tremor and no asterixis Psychiatric: Orientation: alert and oriented x 3 Results & Data ([facility]) Vital Signs (Past 12 Hours) Vital Signs Temp Pulse Resp BP BP Pulse Ox 05/14/21 07:50 36.7 C 106 H 18 137/95 98 05/13/21 23:50 36.8 C 84 18 155/78 H 96 Laboratory Results Laboratory Results - last 24 hr 05/14/21 05/14/21 06:30 06:30 WBC 6.74 RBC 4.35 Hgb 10.6 L Hct 35.2 L MCV 80.9 MCH 24.4 L MCHC 30.1 L RDW Std Deviation 47.1 H RDW Coeff of Blaire 15.9 H Plt Count 333 MPV 10.9 H Sodium 138 Potassium 4.0 Chloride 109 H Carbon Dioxide 22 Anion Gap 7 BUN 17 Creatinine 0.85 Est Cr Clr Drug Dosing 43.8 Est GFR ( Amer) 82.2 Est GFR (Non-Af Amer) 70.9 BUN/Creatinine Ratio 20.0 Glucose 90 Calcium 7.6 L Phosphorus 2.2 L Magnesium 1.7 Total Bilirubin 0.5 AST 10 L ALT 8 Alkaline Phosphatase 124 H Total Protein 6.3 Albumin 3.0 L Globulin 3.3 Albumin/Globulin Ratio 0.9 PG Care Time/CCT Total # of Minutes Spent Total Time Spent with Patient: Total time spent is greater than 50% in coordination of care (as documented) at patient's floor/unit and/or counseling patient: Coding Level of Care Code 73706 Subseq Hosp Care Lvl 3 Diagnoses Hypomagnesemia E83.42 Hypocalcemia E83.51 Hypokalemia E87.6
[2021-05-14] MEDS ORDERED: ENOXAPARIN INJ 30 MG/0.3 ML SYR SQ ONE (16:30)
[2021-05-14] MEDS: ATORVASTATIN 10 MG TAB PO SCH (20:18)
--- NOTE | 2021-05-15 07:31 | Discharge Summary ---
Date of Service May 15, 2021 Admission HPI Per Admitting Provider Ai Cardoza is a 65yo female with history of GERD, depression presenting at the request of her PCP for abnormal lab results. She was seen by Hematology yesterday for B12 injection. She had bloodwork sent and was called to come to the ER for hypocalcemia. Patient with no complaints. She reports some fatigue at times. Also states that she is not eating much at home. When further questioned about this it seems that she may have some difficulty chewing and food tastes poor at times. She denies pain or difficulty swallowing. Denies early satiety. Denies fever, chills, malaise, chest pain, cough, SOB, abdominal pain, nausea, vomiting, diarrhea or constipation. No additional complaints. Patient with history of anemia with iron deficiency. She has been seen by Hematology for B12 injections and in the process of having IV iron infusions arranged. Male scheduling administrator at bedside during encounter - answers most questions for patient Admission Exam Per Admitting Provider General: patient resting comfortably, NAD, non-toxic in appearance, AA&O x 4 Skin: warm, dry, intact, no rashes or lesions HEENT: NC/AT, PERRL, EOMI, anicteric sclera, conjunctiva without injection, external ear normal to inspection and nontender, nares patent, moist mucus membranes, dentures in place, no oropharyngeal lesions, neck supple, trachea mi dline, no LAD, no thyromegaly, no JVD Heart: +S1/S2, regular, no m/r/g Lungs: equal air entry bilaterally, no rales/rhonchi/wheezes Abd: +BS, soft, NT/ND, no masses/organomegaly/ascites Ext: warm, 2+ pulses in UE/LE bilaterally, no clubbing/cyanosis or edema Neuro: nonfocal, patient AA&O x 4, speech intact, no facial droop, moving all extremities on command with equal strength 5/5 Negative Trousseu's sign Negative Chvostek's sign Principal Diagnosis Hypocalcemia, Hypomagnesemia Discharge Data Allergies Allergy/AdvReac Type Severity Reaction Status Date / Time adhesive AdvReac Mild HIVES Verified 05/11/21 19:44 Consultations 05/11/21 18:50 ED Decision to Admit Stat 05/12/21 13:52 Consult Nephrology Routine Hospital Course (1) Hypocalcemia: 65yo female 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 Patient with hypocalcemia - serum Ca=6.3, Albumin=3.5. Ionized calcium low at 0.83. Normal Vitamin D level at 49.6 and normal intact PTH level at 51. pth-related peptide pending Patient with prior hypocalcemia - ionized calcium 0.78 in 12/2020 as well as Mag 0.7 at that time (Has reports of episodic confusion which may be secondary to hypocalcemia? Presently she is AA&O x 4, appropriate. She denies paresthesias, cramping, weakness, myalgias or seizure. No EKG/conduction abnormalities noted on EKG. ) Suspect multifactorial - patient reports poor diet so may be nutritional defi ciency. Also with severe hypomagnesemia which can contribute to hypocalcemia. Patient is also on bisphosphonate therapy as well as PPI. Normal PTH level at 51 but would expect elevated level in setting of hypocalcemia - ?degree of hypoparathyroidism as well. * ?Possible malabsorption vs poor nutrition - patient is B12 and Iron deficient and demonstrating multiple electrolyte derangements as well - hypo Ca, K, Mg as well as FOLATE deficiency * No hx gastric bypass Recommend outpatient oral supplementation, improved dietary intake and routine laboratory monitoring Ordered order boost supplementation (has received and dedicated to taking at least 1-2 daily at discharge, significant other already ordered) and rec patient to start MVI at d/c Vit D 49.6 -- on alendronate 70mg weekly [employer]. 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) -- Started Vitamin D supplementation 1000 IU daily Nephrology consulted given repeat issues, did get [place] based IV chemo for hx breast ca and could have RTA type II from such vs renal salt loosing tubulopathy --> Urine studies pending but can have f/u with Nephrology at discharge Continued replacement of calcium/potassium/magnesium --> Discontinued PPI use, as likely contributing to low mag (<0.5 on admission) and utilizing Pepcid -- Additional 1gm IV calcium, 1gm IV mag given borderline Kphos for low phos but improvement compared to days prior start amiloride 5mg daily, to start magnesium BID PO at d/c but will need to take 2hr prior or 4hr after her doxycycline and will need specified on d/c instruction --> Also would dc 1 tablet K Na phos tablet per nephrology and can have close f/u d/c Monitoring overnight and hopeful for d/c in AM Updated significant other at bedside this afternoon. Has very extensive medication regimen and lists and calls patient 7x/day to ensure taking medications as directed. Ensured will have details for instructions for timing and new meds/discontinued medications at discharge. He already ordered case of boost and encouraging compliance and increased dietary intake Also spoke with CM and arranged for home health/therapy Will need close f/u PCP and Nephrology in the next 7-10 days with repeat labs (2) Hypomagnesemia: Mg = <0.05. As above, could be contributing to additional electrolyte derangements as well. ?Poor dietary intake. Patient denies diarrhea. Repletion with IV, d/c PPI and use pepcid at d/c for reflux To continue PO BID supplementation at discharge (3) Hypokalemia: K=3. In setting of hypomagnesemia as above. PO/IV replacement ordered AM cortisol not low, checked due to HTN/hypokalemia Urine studies as above for possible underlying RTA type II from prior chemotherapy as above -- monitor (4) Acid reflux: Chronic. Patient is on Omeprazole which can be contributing to hypomagnesemia -Hold Omeprazole - continue pepcid at discharge (5) Depression: Chronic. No issues reported however she DOES NOT TAKE THIS AT HOME ANY LONGER, CONFIRMED WITH PATIENT AND PCP --> DISCONTINUED AT THIS TIME HIGHER DOSE AND COULD HAVE CONTRIBUTED TO n/V 3 day prior (6) Iron deficiency: Patient with normochromic/normocytic anemia (Hgb=11.3, Hct=36), MCV=81.1. Recently had iron studies completed (05/10/21) which revealed mild elevation in Ferritin at 392.7, low iron level of 22, low unsaturated IBC at 153. Demonstrates chronic disease pattern more than iron deficiency? venofer x 1 as was to get at her visit the other day Folate also low as above -- replacement ordered -Monitor, repeat CBC in AM (7) Stroke: Prior CVA Dec 2020, followed by Neuro locally Repeat MRI, holter monitor, carotid dopplers without acute findings per most recent note Continue ASA 81mg po daily Continue Atorvastatin Also, would need CTA to look at posterior circulation given "chronic occipital" stroke Also, neuro was checking folate level for dementia -- LOW and replacement ordered as well -- continue at discharge BP control --> had been on higher end/dehydration/poor PO intake. Improved today and started on amiloride 5mg daily. Monitor but may also consider increased dose of metoprolol to 37.5mg daily given elevated HR (regular) monitoring overnight, has been ambulating to bathroom/no calf tenderness or swelling but will order dose of lovenox x 1 for today for DVT prophylaxis hopeful d/c in AM with close f/u nephrology/pcp at discharge Discharge Plan Discharge Items Reason For Visit: HYPOCALCEMIA Follow-up/Referrals: Gold Kelly MD [Primary Care Provider] - 05/24/21 11:20 am Rhys Naik DO [Physician] - (Office will call patient with an appointment date and time) Ambulatory Orders: Basic Metabolic Panel (Routine) Timeframe: 3 Days Location: Determined by Patient Ordered By: Lucille Lozada Magnesium (Routine) Timeframe: 3 Days Location: Determined by Patient Ordered By: Lucille Lozada Addtl Attending Provider Instructions: You have been hospitalized for low calcium, this could be from a lack of oral intake at home and you also had other electrolyte abnormalities with your potassium, phosphorus, and magnesium. The low magnesium can not only be from small oral intake, but also from the omeprazole you had been taking. This has been DISCONTINUED and you have been started on daily pepcid for reflux prevention. You should also remain upright after all meals for at least 30 minutes to prevent issues/aspiration. As discussed, it is also important to take your doxycycline with a FULL glass of water to prevent what is called "esophagitis" or "inflammation in your esophagus" which can happen when the pill gets stuck. You have had lots of replacement for these electrolytes while inpatient and these have improved. Upon review of prior Neurology notes, a folate level was checked (which can contribute to anemia or low hemoglobin levels as well as memory/dementia) and this was LOW and you were started on supplementation. Nephrology was consulted because of the electrolyte abnormalities and urine studies were ordered and can be followed up on at discharge, but you were started on a blood pressure medicine called AMILORIDE 5mg by mouth ONCE daily -- this is a POTASSIUM SPARING DIURETIC and should help to prevent salt wasting if this is an underlying issue. You are also to start magnesium and phosphorous replacement. Given your chronic antibiotics for your hip with the Doxycycline and Keflex, this does have interactions with MAGNESIUM and you will need to take this EITHER 2 HOURS BEFORE OR 4 HOUR AFTER you take this antibiotic, whichever is more convenient for your schedule. You have also been arranged home health and therapy to continue to ensure safety at home and will need to have close follow up with Dr Alaniz as well as Dr Naik from Nephrology in the next 7-10 days. I have provided a lab slip for home health to draw labs in the next 2-3 days to ensure stable at home. In synopsis, regarding medication changes: NEW * Amiloride 5mg by mouth ONCE DAILY in the morning * Magnesium Oxide 400mg by mouth TWICE DAILY --> this can be taken 2 tablets in the morning for convenience or you can take the first tablet in the morning 2 hours prior to taking your doxycycline and 2 hours prior to your evening dose if that works better for your schedule * K Phos -- 1 tablet once daily -- this will help with potassium and phosphorus levels * Vitamin D -- 1000IU daily to be taken at the same time as the magnesium to prevent interactions with your Doxycycline * FOLATE -- 1mg by mouth ONCE daily in the morning -- this will help with memory/dementia as well as blood counts STOP your omeprazole Please follow up with your PCP, Neurology, and Nephrology at discharge to monitor your status since hospitalization. Please return to the emergency department with any increased weakness, fatigue, inability to keep up with oral intake, chest pain, shortness of breath, or for any other symptoms concerning for you. It has been a pleasure being a part of the medical team providing for you while you have been in the hospital. Take care! Medications and DC Order Prescriptions: No Action omeprazole 40 mg capsule,delayed release(DR/EC) 40 mg PO QAM Qty: 30 RF: 5 venlafaxine 75 mg capsule,extended release 24hr 225 mg PO HS Qty: 90 RF: 0 Hold Instructions: not taking cephalexin 500 mg capsule 500 mg PO Q12H Qty: 60 RF: 0 doxycycline hyclate 100 mg tablet,delayed release (DR/EC) 100 mg PO BID Qty: 60 RF: 0 aspirin 81 mg tablet,delayed release (DR/EC) 81 mg PO QAM Qty: 30 RF: 0 metoprolol succinate 25 mg tablet extended release 24 hr 25 mg PO QAM Qty: 90 RF: 3 alendronate [Fosamax] 70 mg tablet 70 mg PO WK Qty: 12 RF: 3 atorvastatin 10 mg tablet 10 mg PO HS RF: 0 Probiotic 10 billion cell Capsule 10,000 mmu cells PO HS RF: 0 Admission Data Admit Date/Time: 05/11/21 19:44 Attending Provider: Jourdan Olea Admit Provider: Seema Diaz Primary Care Provider: Gold Kelly V. Other Providers: [facility] ; Rhys Naik ; Jourdan Olea Coding Diagnoses Hypocalcemia E83.51 Hypomagnesemia E83.42 Hypokalemia E87.6 Acid reflux K21.9 Depression F32.9 Iron deficiency E61.1 Stroke I63.9
[2021-05-15] MEDS ORDERED: METOPROLOL SUCC 25MG EXT REL TAB PO SCH ×2 (09:00)
--- NOTE | 2021-05-15 09:48 | Hospitalist Progress Note ---
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 Patient with hypocalcemia - serum Ca=6.3, Albumin=3.5. Ionized calcium low at 0.83. Normal Vitamin D level at 49.6 and normal intact PTH level at 51. pth-related peptide pending Patient with prior hypocalcemia - ionized calcium 0.78 in 12/2020 as well as Mag 0.7 at that time (Has reports of episodic confusion which may be secondary to hypocalcemia? Presently she is AA&O x 4, appropriate. She denies paresthesias, cramping, weakness, myalgias or seizure. No EKG/conduction abnormalities noted on EKG. ) Suspect multifactorial - patient reports poor diet so may be nutritional deficiency. Also with severe hypomagnesemia which can contribute to hypocalcemia. Patient is also on bisphosphonate therapy as well as PPI. Normal PTH level at 51 but would expect elevated level in setting of hypocalcemia - ?degree of hypoparathyroidism as well. ?Possible malabsorption vs poor nutrition - patient is B12 and Iron deficient and demonstrating multiple electrolyte derangements as well - hypo Ca, K, Mg as well as FOLATE deficiency * No hx gastric bypass Vit D 49.6 -- on alendronate 70mg weekly [employer]. 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) -- Started Vitamin D supplementation 1000 IU daily Nephrology consulted -- discussed and given repeat issues, could be multiple things --> did get [place] based IV chemo for hx breast ca and could have RTA type II from such vs renal salt loosing tubulopathy Continued replacement of calcium/potassium/magnesium Calcium wnl today --> Discontinued PPI use, as likely contributing to low mag (<0.5 on admission) and utilizing Pepcid -- Additional 1gm IV calcium, 1gm IV mag given borderline Kphos for low phos but improvement compared to days prior start amiloride 5mg daily 05/14, to start magnesium BID PO at d/c (ordered for today given mag again low) but will need to take 2hr prior or 4hr after her doxycycline and will need specified on d/c instruction --> Also would dc 1 tablet K Na phos tablet per nephrology and can have close f/u d/c, ordered Urine magnesium confirmed is send out test with lab --> results likely not available until monday but per discussion with Nephrology in days past, ok to d/c on above regimen Recommend outpatient oral supplementation, improved dietary intake and routine laboratory monitoring * Ordered order boost supplementation (has received and dedicated to taking at least 1-2 daily at discharge, significant other already ordered) and rec patient to start MVI at d/c Updated significant other at bedside afternoon 05/14. Has very extensive medication regimen and lists and calls patient 7x/day to ensure taking medications as directed. Ensured will have details for instructions for timing and new meds/discontinued medications at discharge. He already ordered case of boost and encouraging compliance and increased dietary intake Also spoke with CM and arranged for home health/therapy Significant other not comfortable with taking home today and will re-eval for AM for hopeful discharge Will need close f/u PCP and Nephrology in the next 7-10 days with repeat labs (2) Hypomagnesemia: Plan: Mg = <0.05. As above, could be contributing to additional electrolyte derangements as well. ?Poor dietary intake. Patient denies diarrhea. Repletion with IV, d/c PPI and use pepcid at d/c for reflux To continue PO BID supplementation at discharge -- ordered for today as mag 1.7 on repeat x 2 but was 1.6 on repeat 05/15 and will ordered 2gm IV in the meantime, monitor labs in AM (3) Hypokalemia: Plan: K=3. In setting of hypomagnesemia as above. PO/IV replacement ordered AM cortisol not low, checked due to HTN/hypokalemia Urine studies as above for possible underlying RTA type II from prior chemotherapy as above -- monitor outpatient as urine mag send out and results not available until next week (4) Acid reflux: Plan: Chronic. Patient is on Omeprazole which can be contributing to hypomagnesemia D/c omeprazole, continue pepcid at d/c (5) Depression: Plan: Chronic. No issues reported however she DOES NOT TAKE THIS AT HOME ANY LONGER, CONFIRMED WITH PATIENT AND PCP --> DISCONTINUED AT THIS TIME HIGHER DOSE AND COULD HAVE CONTRIBUTED TO n/V 3 day prior (6) Iron deficiency: Plan: Patient with normochromic/normocytic anemia (Hgb=11.3, Hct=36), MCV=81.1. Recently had iron studies completed (05/10/21) which revealed mild elevation in Ferritin at 392.7, low iron level of 22, low unsaturated IBC at 153. Demonstrates chronic disease pattern more than iron deficiency? venofer x 1 as was to get at her visit the other day Folate also low as above -- replacement ordered -Monitor, repeat CBC in AM (7) Stroke: Plan: Prior CVA Dec 2020, followed by Neuro locally Repeat MRI, holter monitor, carotid dopplers without acute findings per most recent note Continue ASA 81mg po daily Continue Atorvastatin Also, would need CTA to look at posterior circulation given "chronic occipital" stroke Also, neuro was checking folate level for dementia -- LOW and replacement ordered as well -- continue at discharge BP control --> had been on higher end/dehydration/poor PO intake. Improved today and started on amiloride 5mg daily but still elevated and increased her metoprolol to 37.5mg daily as well --> new rxs sent on d/c instructions Plan: hopeful for d/c in AM Admission and Anticipated Discharge Date Admission Date: May 11, 2021 Subjective Ms Cardoza evaluated this morning. Frustrated with significant other as he called and bc she wasn't able to provide her home address he felt unsafe to take her home and left for his house and reportedly will be back tomorrow. Patient looking great and states she feels good. Improvement in appetite. States in [facility] hospital, 2021, that it is May. Discussed not her fault, that we will await labs/additional replacement as needed, start other new meds and anticipate discharge tomorrow. No fever, chills, chest pain, shortness of breath, headache, worsening/blurred vision, abdominal pain, nausea, vomiting or dysuria at this time. Tolerating boost and encouraged continued intake. Review of Systems Review of Systems: All systems reviewed & are unremarkable except as noted in HPI & below Physical Exam Physical Exam: General: WN/WD frail elderly woman sitting up chair, no acute distress Psych: alert, oriented x 3, pleasant and cooperative HEENT: normocephalic, atraumatic, mmm, no JVD, pupils equal and reactive. Resp: CTAB, no w/c/r, on room air CV: RRR, no m/r/g GI: +BS, soft, non-tender, no guarding/rigidity MSK/Neuro: moves all extremities, no focal deficit, speech intact/no droop, strength equal bilaterally. alert, oriented x 3 , normal finger-nose, no pronator drift, EOMI, CN intact grossly Negative Trousseau's sign/chvostek's sign Results & Data Results & Data ([facility]) Vital Signs (Past 12 Hours) Vital Signs Temp Pulse Resp BP BP Pulse Ox 05/15/21 07:32 36.6 C 103 H 16 154/80 H 98 05/14/21 23:08 37.2 C 93 H 16 134/76 97 Laboratory Results 05/15/21 05/15/21 Range/Units 10:07 00:30 Sodium 139 (136-145) mmol/L Potassium 3.9 (3.5-5.1) mmol/L Chloride 107 (98-107) mmol/L Carbon Dioxide 23 (21-32) mmol/L Anion Gap 9 (3-11) BUN 21 (6-23) mg/dl Creatinine 0.90 (0.6-1.2) mg/dl Est Cr Clr Drug Dosing 41.4 ml/min Est GFR ( Amer) 76.7 ml/min Est GFR (Non-Af Amer) 66.2 ml/min BUN/Creatinine Ratio 23.3 H (10-20) Glucose 159 H (70-99(Fasting)) mg/dl Calcium 8.9 (8.5-10.1) mg/dl Phosphorus 2.1 L (2.5-4.9) mg/dl Magnesium 1.6 L (1.7-2.4) mg/dl Albumin 3.3 L (3.4-5.0) gm/dl Stl C. diff Tox B Gene Negative Cdiff Gene (Neg) PG Care Time/CCT Total # of Minutes Spent Total Time Spent with Patient: Total time spent is greater than 50% in coordination of care (as documented) at patient's floor/unit and/or counseling patient: Coding Level of Care Code 21891 Subseq Hosp Care Lvl 3 Diagnoses Hypocalcemia E83.51 Hypomagnesemia E83.42 Hypokalemia E87.6 Acid reflux K21.9 Depression F32.9 Iron deficiency E61.1 Stroke I63.9
[2021-05-15] MEDS: FOLIC ACID 1 MG TAB PO SCH (09:50)
[2021-05-15] MEDS: ASPIRIN 81 MG ECTAB PO SCH (09:50)
[2021-05-15] MEDS: DOXYCYCLINE HYCLATE 100 MG CAP PO SCH ×2 (09:50→19:37)
[2021-05-15] MEDS: CHOLECALCIFEROL 1,000 UNITS 25 MCG TAB PO SCH (09:50)
[2021-05-15] MEDS: cephALEXin 500 MG CAP PO SCH ×2 (09:50→19:37)
[2021-05-15] MEDS: FAMOTIDINE 20 MG in SYRINGE 3 ML IV SCH (09:51)
[2021-05-15] MEDS: POT PHOSPHATE MONOBASIC W/ SOD TAB PO SCH (09:52)
[2021-05-15] MEDS: aMILoride HCL 5 MG TAB PO SCH (10:15)
[2021-05-15] MEDS: METOPROLOL SUCC 25MG EXT REL TAB PO SCH (10:15)
[2021-05-15 11:10] LABS: Albumin Level 3.3 gm/dl (3.4-5.0); BUN Creatinine Ratio 23.3 (10-20); Calcium 8.9 mg/dl (8.5-10.1); Creatinine Clr Calc Pharmacy 41.4 ml/min; Est GFR (African American) 76.7 ml/min; Est GFR (Non-African American) 66.2 ml/min; Magnesium 1.6 mg/dl (1.7-2.4); Phosphorus 2.1 mg/dl (2.5-4.9); Potassium 3.9 mmol/L (3.5-5.1)
[2021-05-15] MEDS ORDERED: POTASSIUM PHOS 3 MMOL/1 ML INFUSION IV STA (12:36)
[2021-05-15] MEDS ORDERED: POTASSIUM PHOSPHATE 9 MMOL in SODIUM CHLORIDE 0.9% 250 ML IV ONE (13:00)
[2021-05-15] MEDS: MAGNESIUM SULFATE / D5W 1 GM/100 ML BAG IV SCH ×2 (13:57→15:47)
[2021-05-15] MEDS: MAGNESIUM OXIDE 400 MG TAB PO SCH ×2 (13:58→19:37)
[2021-05-15] MEDS: ATORVASTATIN 10 MG TAB PO SCH (19:37)
--- NOTE | 2021-05-16 08:15 | Discharge Summary ---
Date of Service May 16, 2021 Admission HPI Per Admitting Provider Chief Complaint: abnormal labs Primary Care Provider: Gold Kelly MD Ai Cardoza is a 65yo female with history of GERD, depression presenting at the request of her PCP for abnormal lab results. She was seen by Hematology yesterday for B12 injection. She had bloodwork sent and was called to come to the ER for hypocalcemia. Patient with no complaints. She reports some fatigue at times. Also states that she is not eating much at home. When further questioned about this it seems that she may have some difficulty chewing and food tastes poor at times. She denies pain or difficulty swallowing. Denies early satiety. Denies fever, chills, malaise, chest pain, cough, SOB, abdominal pain, nausea, vomiting, diarrhea or constipation. No additional complaints. Patient with history of anemia with iron deficiency. She has been seen by Hematology for B12 injections and in the process of having IV iron infusions arranged. Male plant general manager at bedside during encounter - answers most questions for patient Admission Exam Per Admitting Provider General: patient resting comfortably, NAD, non-toxic in appearance, AA&O x 4 Skin: warm, dry, intact, no rashes or lesions HEENT: NC/AT, PERRL, EOMI, anicteric sclera, conjunctiva without injection, external ear normal to inspection and nontender, nares patent, moist mucus membranes, dentures in place, no oropharyngeal lesions, neck supple, trachea midline, no LAD, no thyromegaly, no JVD Heart: +S1/S2, regular, no m/r/g Lungs: equal air entry bilaterally, no rales/rhonchi/wheezes Abd: +BS, soft, NT/ND, no masses/organomegaly/ascites Ext: warm, 2+ pulses in UE/LE bilaterally, no clubbing/cyanosis or edema Neuro: nonfocal, patient AA&O x 4, speech intact, no facial droop, moving all extremities on command with equal strength 5/5 Negative Trousseu's sign Negative Chvostek's sign Principal Diagnosis Hypocalcemia, Hypomagnesemia, Hypokalemia, Dehydration Discharge Exam General: WN/WD frail elderly woman sitting up chair, no acute distress Psych: alert, oriented x 3, pleasant and cooperative HEENT: normocephalic, atraumatic, mmm, no JVD, pupils equal and reactive. Resp: CTAB, no w/c/r, on room air CV: RRR, no m/r/g GI: +BS, soft, non-tender, no guarding/rigidity MSK/Neuro: moves all extremities, no focal deficit, speech intact/no droop, strength equal bilaterally. alert, oriented x 3 , normal finger-nose, no pronator drift, EOMI, CN intact grossly Negative Trousseau's sign/chvostek's sign Discharge Data Allergies Allergy/AdvReac Type Severity Reaction Status Date / Time adhesive AdvReac Mild HIVES Verified 05/11/21 19:44 Consultations 05/11/21 18:50 ED Decision to Admit Stat 05/12/21 13:52 Consult Nephrology Routine Hospital Course (1) Hypocalcemia: 65yo female presenting at the request of her manager front office for laboratory abnormalities (follows for hx breast ca, on anastrazole, and B12/iron deficiency). Patient with hypocalcemia - serum Ca=6.3, Albumin=3.5. Ionized calcium low at 0.83. Normal Vitamin D level at 49.6 and normal intact PTH level at 51. pth-related peptide pending Patient with prior hypocalcemia - ionized calcium 0.78 in 12/2020 as well as Mag 0.7 at that time (Has reports of episodic confusion which may be secondary to hypocalcemia? Presently she is AA&O x 4, appropriate. She denies paresthesias, cramping, weakness, myalgias or seizure. No EKG/conduction abnormalities noted on EKG. ) Suspect multifactorial - patient reports poor diet so may be nutritional deficiency. Also with severe hypomagnesemia which can contribute to hypocalcemia. Patient is also on bisphosphonate therapy as well as PPI. Normal PTH level at 51 but would expect elevated level in setting of hypocalcemia - ?degree of hypoparathyroidism as well. ?Possible malabsorption vs poor nutrition - patient is B12 and Iron deficient and demonstrating multiple electrolyte derangements as well - hypo Ca, K, Mg as well as FOLATE deficiency. No hx gastric bypass Vit D 49.6 -- on alendronate 70mg weekly [employer]. 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) -- Started Vitamin D supplementation 1000 IU daily (to also take with her mag to avoid interactions with the doxycycline) Nephrology consulted -- discussed and given repeat issues, could be multiple things Gitleman/Barter vs did get [place] based IV chemo for hx breast ca and could have RTA type II from such vs renal salt loosing tubulopathy Discontinued PPI use, as likely contributing to low mag (<0.5 on admission) and utilizing Pepcid at discharge for reflux prevention started amiloride 5mg daily 05/14, magnesium BID PO, 1 tablet K Na phos --> continue at discharge (but will need to take 2hr prior or 4hr after her doxycycline and specified on d/c instruction) Urine magnesium confirmed is send out test with lab --> results likely not available until monday but per discussion with Nephrology in days past, ok to d/c on above regimen Recommend outpatient oral supplementation, improved dietary intake and routine laboratory monitoring * Ordered order boost supplementation (has received and dedicated to taking at least 1-2 daily at discharge, significant other already ordered) and rec patient to start MVI at d/c Updated significant other at bedside afternoon 05/14 and again on phone 05/16. Has very extensive medication regimen and lists and calls patient 7x/day to ensure taking medications as directed. Ensured will have details for instructions for timing and new meds/discontinued medications at discharge. He already ordered case of boost and encouraging compliance and increased dietary intake Also spoke with CM and arranged for home health/therapy Discussion will be needed with PCP regarding continuation of Alendronate at discharge until we can ensure Calcium levels remain stable. --> Ca was up to 9.4 prior to discharge, Mag 1.9, K 4.5 (2) Hypomagnesemia: Mg = <0.05. As above, could be contributing to additional electrolyte derangements as well. ?Poor dietary intake. Patient denies diarrhea. Repletion with IV, d/c PPI and use pepcid at d/c for reflux To continue PO BID supplementation at discharge as above (3) Hypokalemia: K=3. In setting of hypomagnesemia as above. PO/IV replacement ordered AM cortisol not low, checked due to HTN/hypokalemia K wnl prior to discharge Urine studies as above for possible underlying RTA type II from prior chemotherapy as above -- monitor outpatient as urine mag send out and results not available until next week (4) Acid reflux: Chronic. Patient is on Omeprazole which can be contributing to hypomagnesemia D/c'd omeprazole, continued pepcid at d/c (5) Depression: Chronic. No issues reported however she DOES NOT TAKE THIS AT HOME ANY LONGER, CONFIRMED WITH PATIENT AND PCP and had not been taking --> DISCONTINUED on med rec at discharge (6) Iron deficiency: Patient with normochromic/normocytic anemia (Hgb=11.3, Hct=36), MCV=81.1. Recently had iron studies completed (05/10/21) which revealed mild elevation in Ferritin at 392.7, low iron level of 22, low unsaturated IBC at 153 venofer x 2 while inpatient Folate also low as above -- replacement ordered Follow up heme/onc for continued iron/B12 replacement (7) Stroke: Prior CVA Dec 2020, followed by Neuro locally Repeat MRI, Holter monitor, carotid dopplers without acute findings per most recent note but would imaging CTA would have been needed to look at posterior circulation given "chronic occipital CVA" -- can f/u with Neurology Continued ASA 81mg, atorvastatin Also, neuro was checking folate level for dementia -- LOW and replacement ordered as well -- continued at discharge BP control --> had been on higher end/dehydration/poor PO intake. Improved but still slightly elevated and increased metoprolol to 37.5mg daily in addition to amiloride 5mg daily for above Monitor BP at home and f/u PCP I certify that this patient is under my care and that I, or a physicians conventions assistant working with me, had a face to-face encounter that meets the home health [id number] encounter requirements with this patient. The encounter with the patient was in whole, or in part, for the following medical condition, which is the primary reason for home health care (list medical condition): electrolyte imbalance I certify that, based on my findings, the following services are medically necessary home health services: My clinical findings support the need for the above services because: PT Assessment for Endurance / Balance / Strength PT Eval for Safety and Mobility PT Eval for Safety, Gait Training, Assistive Devices PT Gait and Balance Training, Strengthening and Safety Skilled Nsg Assessment Further, I certify that my clinical findings support that this patient is homebound (i.e. absences from home require considerable and taxing effort and are for medical reasons or oriental orthodox services or infrequently or of short duration when for other reasons) because: Transportation Assistance/Unable to Leave Home Unassisted Certification for Home Health Services: Based on the above findings, I certify that this patient is confined to the home and needs intermittent group home care, physical therapy and/or speech therapy or continues to need occupational therapy. The patient is under my care, and I have initiated the establishment of the plan of care. This patient will be followed by a physician who will periodically review the plan of care. discharged with significant other who is to stay with her a few days home health also arranged Total Time Total Time Spent Total Time Spent (In Minutes): 75 Discharge Plan Discharge Items Patient Disposition: Home - Home Health Services Reason For Visit: HYPOCALCEMIA Discharge Diagnosis: Hypocalcemia, Hypomagnesemia, Hypokalemia, Dehydration Goals: You have been hospitalized for an acute medical problem. During your stay at [facility], we have made an effort to correct the problem that brought you to the hospital while keeping you as comfortable as possible. Medications were used to bring your condition under control and your discharge instructions will include directions for any medications you should take after leaving the hospital. Please make sure you see your Primary Care Provider as part of your follow up plan. Activity: Resume your previous activity Activity Comment: as tolerated Non-emergency contact: Primary Care Provider and Support Dba Call non-emergency contact if: you have any medication questions and your symptoms worsen Follow-up/Referrals: Gold Kelly MD [Primary Care Provider] - 05/24/21 11:20 am Rhys Naik DO [Physician] - (Office will call patient with an appointment date and time) Diet: Heart Healthy Ambulatory Orders: Basic Metabolic Panel (Routine) Timeframe: 3 Days Location: Determined by Patient Ordered By: Lucille Lozada Magnesium (Routine) Timeframe: 3 Days Location: Determined by Patient Ordered By: Lucille Lozada Addtl Attending Provider Instructions: You have been hospitalized for low calcium, this could be from a lack of oral intake at home and you also had other electrolyte abnormalities with your potassium, phosphorus, and magnesium. The low magnesium can not only be from small oral intake, but also from the omeprazole you had been taking. This has been DISCONTINUED and you have been started on daily pepcid for reflux prevention. You should also remain upright after all meals for at least 30 minutes to prevent issues/aspiration. As discussed, it is also important to take your doxycycline with a FULL glass of water to prevent what is called "esophagitis" or "inflammation in your esophagus" which can happen when the pill gets stuck. You have had lots of replacement for these electrolytes while inpatient and these have improved. Upon review of prior Neurology notes, a folate level was checked (which can contribute to anemia or low hemoglobin levels as well as memory/dementia) and this was LOW and you were started on supplementation. Nephrology was consulted because of the electrolyte abnormalities and urine studies were ordered and can be followed up on at discharge, but you were started on a blood pressure medicine called AMILORIDE 5mg by mouth ONCE daily -- this is a POTASSIUM SPARING DIURETIC and should help to prevent salt wasting if this is an underlying issue. You are also to start magnesium and phosphorous replacement. Given your chronic antibiotics for your hip with the Doxycycline and Keflex, this does have interactions with MAGNESIUM and you will need to take this EITHER 2 HOURS BEFORE OR 4 HOUR AFTER you take this antibiotic, whichever is more convenient for your schedule. You have also been arranged home health and therapy to continue to ensure safety at home and will need to have close follow up with Dr Alaniz as well as Dr Naik from Nephrology in the next 7-10 days. I have provided a lab slip for home health to draw labs in the next 2-3 days to ensure stable at home. In synopsis, regarding medication changes: NEW * Amiloride 5mg by mouth ONCE DAILY in the morning * Magnesium Oxide 400mg by mouth TWICE DAILY --> this can be taken 2 tablets in the morning for convenience or you can take the first tablet in the morning 2 hours prior to taking your doxycycline and 2 hours prior to your evening dose if that works better for your schedule * K Phos -- 1 tablet once daily -- this will help with potassium and phosphorus levels * Vitamin D -- 1000IU daily to be taken at the same time as the magnesium to prevent interactions with your Doxycycline * FOLATE -- 1mg by mouth ONCE daily in the morning -- this will help with memory/dementia as well as blood counts Metoprolol -- your metoprolol has been INCREASED to 37.5mg daily to help with blood pressure as well as heart rate control. STOP your omeprazole Please follow up with your PCP, Neurology, and Nephrology at discharge to monitor your status since hospitalization. Please return to the emergency department with any increased weakness, fatigue, inability to keep up with oral intake, chest pain, shortness of breath, or for any other symptoms concerning for you. It has been a pleasure being a part of the medical team providing for you while you have been in the hospital. Take care! Pending Studies at Discharge: Yes Studies:: Urine random magnesium Stand-Alone Forms: My [facility] Medications and DC Order Prescriptions: New metoprolol succinate 25 mg Tablet Extended Release 24 Hr 37.5 mg PO QAM 30 Days Qty: 45 RF: 1 amiloride 5 mg Tablet 5 mg PO DAILY 30 Days Qty: 30 RF: 0 Phospha 250 Neutral 250 mg Tablet 1 tab PO DAILY Qty: 30 RF: 0 cholecalciferol (vitamin D3) 25 mcg (1,000 unit) Capsule 1,000 unit PO QAM Qty: 30 RF: 0 folic acid 1 mg Tablet 1 mg PO QAM Qty: 30 RF: 0 famotidine [Pepcid] 20 mg tablet 20 mg PO DAILY Qty: 30 RF: 0 magnesium oxide 400 mg magnesium capsule 400 mg PO BID Qty: 60 RF: 0 Continued cephalexin 500 mg capsule 500 mg PO Q12H Qty: 60 RF: 0 doxycycline hyclate 100 mg tablet,delayed release (DR/EC) 100 mg PO BID Qty: 60 RF: 0 aspirin 81 mg tablet,delayed release (DR/EC) 81 mg PO QAM Qty: 30 RF: 0 alendronate [Fosamax] 70 mg tablet 70 mg PO WK Qty: 12 RF: 3 atorvastatin 10 mg tablet 10 mg PO HS RF: 0 Probiotic 10 billion cell Capsule 10,000 mmu cells PO HS RF: 0 Discontinued omeprazole 40 mg capsule,delayed release(DR/EC) 40 mg PO QAM Qty: 30 RF: 5 venlafaxine 75 mg capsule,extended release 24hr 225 mg PO HS Qty: 90 RF: 0 Hold Instructions: not taking metoprolol succinate 25 mg tablet extended release 24 hr 25 mg PO QAM Qty: 90 RF: 3 Discharge Orders: Discharge Order (Routine); Ordered 05/16/21 Ordered By: Lucille Lozada Admission Data Admit Date/Time: 05/11/21 19:44 Attending Provider: Leodan Hewitt Admit Provider: Seema Diaz Primary Care Provider: Gold Kelly V. Other Providers: [facility] ; Rhys Naik ; Jourdan Olea Other Interventions: Discharge Summary Assessment (RN) Last Done: 05/16/21 14:38 Supervising Physician Co-Signing Physician Notes I personally saw and examined the patient. I verified all mar points and agree with Lucille Lozada PA-C with the following exceptions and/or additions: 65 year old female admission for multiple electrolyte abnormalities as above. Suspect underlying problem is hypomagnesemia ?related to PPI and GI loss +/- renal wasting. Patient reports feeling at her baseline and was sent mainly for abnormal labs rather than significant symptoms o/e no acute distress, no resp distress, Chest CTAB, abdo SNT A/P Electrolyte abnormalities - replacements as prescribed decision made in conjunction with nephrology. Will have labs in 3 days and close follow up with nephrology for ongoing management. Coding Level of Care Code D/C DAY MANAGEMENT >30 MINS Diagnoses Hypocalcemia E83.51 Hypomagnesemia E83.42 Hypokalemia E87.6 Acid reflux K21.9 Depression F32.9 Iron deficiency E61.1 Stroke I63.9
[2021-05-16] MEDS: ASPIRIN 81 MG ECTAB PO SCH (08:33)
[2021-05-16] MEDS: CHOLECALCIFEROL 1,000 UNITS 25 MCG TAB PO SCH (08:34)
[2021-05-16] MEDS: aMILoride HCL 5 MG TAB PO SCH (08:35)
[2021-05-16] MEDS: FOLIC ACID 1 MG TAB PO SCH (08:35)
[2021-05-16] MEDS: POT PHOSPHATE MONOBASIC W/ SOD TAB PO SCH (08:35)
[2021-05-16] MEDS: MAGNESIUM OXIDE 400 MG TAB PO SCH (08:36)
[2021-05-16] MEDS: METOPROLOL SUCC 25MG EXT REL TAB PO SCH (08:36)
[2021-05-16] MEDS: DOXYCYCLINE HYCLATE 100 MG CAP PO SCH (08:37)
[2021-05-16] MEDS: cephALEXin 500 MG CAP PO SCH (08:37)
[2021-05-16] MEDS: FAMOTIDINE 20 MG in SYRINGE 3 ML IV SCH (08:57)
[2021-05-16 10:07] LABS: BUN Creatinine Ratio 25.8 (10-20); Calcium 9.4 mg/dl (8.5-10.1); Est GFR (African American) 73.7 ml/min; Est GFR (Non-African American) 63.6 ml/min; Magnesium 1.9 mg/dl (1.7-2.4); Phosphorus 3.5 mg/dl (2.5-4.9); Potassium 4.5 mmol/L (3.5-5.1)
[2021-05-18 18:41] LABS: Magnesium, Random Urine 78 mg/g creat (22-130)
== END 2021-05-16 15:43 | disposition home health service (06) | DRG 641 ==
LOC: ED 15:29 → SUATTDRO 19:44 → EDINP 19:44 → 3N 23:44